=== PATIENT | male | born 1945 | race Caucasian/White ===

== ENCOUNTER → 2019-09-06 12:58 | Outpatient (BNVA) | payer MEDICARE, SELFPAY | PROVIDERS: Family Provider Internal Medicine; PCP Internal Medicine; Visit Provider Otolaryngology | DX: H69.83 Other specified disorders of Eustachian tube, bilateral (principal) | CPT/HCPCS: 99214 ==

== ENCOUNTER 2019-09-08 06:59 | Day surgery (SDC) | payer MEDICARE, SELFPAY ==
[2019-09-07 13:11] VITALS: BMI 26.9
--- NOTE | 2019-09-08 06:52 | PM.OP ---
Operative Report Date of procedure: September 08, 2019 Pre-op Diagnosis: Eustachian tube dysfunction Post-op diagnosis: same Procedure Done: Bilateral myringotomy and tube, binocular microscope Pathology: none sent Surgeon: Landon Simmons Condition: stable Disposition: PACU Brief History: Imani mohamud is a 74-year-old male with earaches and pressure and fullness for the past 30 years. He has tried numerous medical treatments and all have failed I discussed the goals risks and alternatives of treatment and informed consent was obtained to proceed with surgery. Procedure: The patient was taken to the operating room and under satisfactory general mask anesthesia the right ear was examined using the binocular microscope. Cerumen was removed from the external auditory canal. A radial incision was made in the anterior inferior quadrant of the tympanic membrane. An identical procedure and findings were performed on the opposite side. No complications occurred. The patient was taken to the recovery room where they were observed. During the observation period postoperative care instructions and counseling including detailed written and verbal instructions given to the caregiver. Once the patient met discharge criteria and once all parties verbalized understanding of all instructions the patient was discharged in satisfactory and stable condition.
[2019-09-08 07:17] VITALS: BP 110/74; RESP 18; TEMP 36.3; O2SAT 97
--- NOTE | 2019-09-08 07:56 | ANES.PREANE2 ---
Pre-Anesthetic Assessment Pre-Anesthetic Assessment: Height/Weight: Height 1.73 m Weight 80.286 kg Temp Resp BP Pulse Ox 97.4 F L 18 110/74 97 09/08/19 07:17 09/08/19 07:17 09/08/19 07:17 09/08/19 07:17 Preop Diagnosis: eustachian tube dysfunction Proposed Procedure: Operation Date: 08/05/19 07:20 Proposed Procedures p Tympanoplasty Required tube Insertion [id number], H69.80(Not Applicable) - Landon Simmons MD Operation Date: 09/08/19 08:50 Proposed Procedures p Myringotomy and Tubes Bilateral Myringotomy and Tubes(Not Applicable) - Landon Simmons MD Last intake: Intake Last Liquid Date 09/07/19 Last Liquid Time 19:00 Last Solid Date 09/07/19 Last Solid Time 19:00 Social: Social History: Tobacco (quit) and No alcohol Exam: Pre-Anes Outpt Exam: alert, oriented x 3, clear to auscultation bilaterally and regular rate & rhythm Airway: Submandibular: WNL Cervical ROM: WNL MP: 2 Dentition: Full and Other History/ROS: No significant history except as noted Pulmonary: Pulmonary: COPD and GARCIA CV/HEM: CV/HEM: Afib, CAD, CHF, HTN and KS Comments: PPM : : None reported Hepatic: Hepatic: None reported GI: GI: GERD (occ) Metabolic: Metabolic: Hyperlipidemia Musc/skel: Musc/skel: OA/DJD and Weakness (LE) Neuropsych: Neuropsych: None reported Anesthetic Plan: ASA status: 3 Anesthesia: MAC Risk of > 500 ml blood loss (7ml/kg in children): No PFSH Anesthesia PFSH: Medical History Arteriosclerosis of coronary artery Atrial fibrillation with RVR Chronic combined systolic and diastolic heart failure Chronic eustachian tube dysfunction CKD (chronic kidney disease) GERD (gastroesophageal reflux disease) Surgical History S/P angioplasty with stent S/P AV (atrioventricular) dolores ablation S/P laparoscopic hernia repair OF A VENTRAL HERNIA WITH ATRIUM MESH 03/26/2016 Family History Other Heart disease Hypertension Social History Smoking and tobacco status: former smoker Alcohol intake: never Lives independently: Yes Household members: spouse Housing: House Marital status: Current occupational status: retired Data Anesthesia Cardiac Studies: No Data to Display
--- NOTE | 2019-09-08 08:14 | W.PM.OPSUD ---
Surgery/Procedure H&P Update DATE OF PROCEDURE: September 08, 2019 DATE H&P PERFORMED: 09/06/19 H&P UPDATE INFORMATION: I have reviewed H&P completed within last 30 days and No changes to prior documentation PREOP DIAGNOSIS: eustachian tube dysfunction PLANNED PROCEDURE: Operation Date: 08/05/19 07:20 Proposed Procedures p Tympanoplasty Required tube Insertion [id number], H69.80(Not Applicable) - Landon Simmons MD Operation Date: 09/08/19 08:50 Proposed Procedures p Myringotomy and Tubes Bilateral Myringotomy and Tubes(Not Applicable) - Landon Simmons MD
[2019-09-08] MEDS: sodium chloride 0.9% 1,000 ML 30 ML IV (08:20)
[2019-09-08] MEDS: ofloxacin 0.3% otic 5 mL Btl 3 DROP EAR-BOTH (08:27)
--- NOTE | 2019-09-08 08:28 | PM.OP ---
Operative Report Date of procedure: September 08, 2019 Pre-op Diagnosis: eustachian tube dysfunction Post-op diagnosis: same Procedure Done: Lateral myringotomy and tube, binocular microscope Pathology: none sent Surgeon: Landon Simmons Anesthesia: General Complications: None Condition: stable Disposition: PACU Brief History: Kameron is a 8-year-old male with chronic eustachian tube dysfunction is failed medical management. I discussed the goals risks and alternatives and informed consent was obtained to proceed with surgery. Procedure: The patient was taken to the operating room and under satisfactory general mask anesthesia the right ear was examined using the binocular microscope. Cerumen was removed from the external auditory canal. A radial incision was made in the anterior inferior quadrant of the tympanic membrane. A #1 Paparella tube was placed. An identical procedure and findings were performed on the opposite side. No complications occurred. The patient was taken to the recovery room where they were observed. During the observation period postoperative care instructions and counseling including detailed written and verbal instructions given to the caregiver. Once the patient met discharge criteria and once all parties verbalized understanding of all instructions the patient was discharged in satisfactory and stable condition.
[2019-09-08 08:34] VITALS: BP 85/56; PULSE 92; RESP 16; TEMP 36.6; O2SAT 97
[2019-09-08 08:56] VITALS: BP 91/62; PULSE 90; RESP 18; O2SAT 98
== END 2019-09-08 09:28 | disposition home or self-care (01) ==
PROVIDERS: Family Provider Internal Medicine; PCP Internal Medicine; Visit Provider Otolaryngology
PROC: (CPT 69420; principal; 2019-09-08 08:50)
DX: H69.93 Unspecified Eustachian tube disorder, bilateral (principal); I48.91 Unspecified atrial fibrillation; I13.0 Hypertensive heart and chronic kidney disease with heart failure and stage 1 through stage 4 chronic kidney disease, or unspecified chronic kidney disease; N18.9 Chronic kidney disease, unspecified; I50.42 Chronic combined systolic (congestive) and diastolic (congestive) heart failure; Z82.49 Family history of ischemic heart disease and other diseases of the circulatory system; Z87.891 Personal history of nicotine dependence; J44.9 Chronic obstructive pulmonary disease, unspecified; K21.9 Gastro-esophageal reflux disease without esophagitis; E78.5 Hyperlipidemia, unspecified; M19.90 Unspecified osteoarthritis, unspecified site; I25.10 Atherosclerotic heart disease of native coronary artery without angina pectoris
CPT/HCPCS: 69436; 12345; J7030

== ENCOUNTER → 2019-09-29 12:29 | Outpatient (BNVA) | payer MEDICARE, SELFPAY | PROVIDERS: Family Provider Internal Medicine; PCP Internal Medicine; Visit Provider Otolaryngology | DX: H69.83 Other specified disorders of Eustachian tube, bilateral (principal) | CPT/HCPCS: 99213; 99214 ==

== ENCOUNTER 2020-01-02 13:38 | Outpatient (CLI) | payer MEDICARE, SELFPAY ==
--- NOTE | 2020-01-02 13:46 | CT_ITS ---
WS: [id number] CT HEAD WITHOUT AND WITH CONTRAST TECHNIQUE: Noncontrast and contrast-enhanced CT of the head. CLINICAL INFORMATION: HEARING LOSS COMPARISON: CTA head January 16, 2015 DLP: 1984.[address] scans at [facility] use at least one of these dose optimization techniques: automat ed exposure control; mA and/or kV adjustment per patient size (includes targeted exams where dose is matched to clinical indication); or iterative reconstruction. FINDINGS: Moderate small vessel changes. Moderate parenchymal volume loss. No evidence of intracranial hemorrha ge or mass effect. No extra-axial fluid collections. No abnormal intracranial enhancement. Intracrani al vascular calcification. Mastoid air cells are well aerated. Posterior nasopharynx is normal. No abnormal intracranial enhancement. Normal visualized dural venous sinuses. CT/CT head wo/w con [id number] IMPRESSION: 1. Moderate small vessel changes with mild to moderate parenchymal volume loss . This appears relatively stable since 2014 2. No abnormal intracranial enhancement. 3. Paranasal sinuses and mastoid air cells appear well aerated. 4. Intracranial vascular calcification.
[2020-01-02 15:10] LABS: Blood Urea Nitrogen 17 mg/dL (8-23)
[2020-01-02] MEDS: iodixanol 320 mg/mL 100mL Btl IV (15:18)
== END 2020-01-02 13:39 | disposition home or self-care (01) ==
LOC: RADWPI 13:39
PROVIDERS: Family Provider Internal Medicine; PCP Internal Medicine; Visit Provider Specialist
DX: H81.11 Benign paroxysmal vertigo, right ear (principal); H90.3 Sensorineural hearing loss, bilateral
CPT/HCPCS: 70470; 82565; 84520; Q9967

== ENCOUNTER 2020-01-31 08:14 | Outpatient (RCR) | payer MEDICARE, SELFPAY | END 2020-02-17 23:59 | disposition home or self-care (01) | LOC: SPT 08:14 | PROVIDERS: PCP Internal Medicine; Referring Provider Otolaryngology; Visit Provider Otolaryngology | DX: R42 Dizziness and giddiness (principal) | CPT/HCPCS: 95992; 97162 ==

== ENCOUNTER 2020-10-05 08:39 | Emergency (ER) | payer MEDICARE, SELFPAY ==
[2020-10-05 08:49] VITALS: BP 108/65; PULSE 89; RESP 18; TEMP 36.9; O2SAT 98; BMI 25.8
--- NOTE | 2020-10-05 08:56 | XR_ITS ---
WS: [id number] XR hip RT 2-3V wo/w pel* [id number] REASON FOR EXAM: pain FINDINGS: Mild to moderate narrowing of the right hip joint space with spurring of the acetabular margin. No focal bony abnormality. No soft tissue abnormality. XR/XR hip RT 2-3V wo/w pel* [id number] IMPRESSION: Osteoarthritis of the right hip as above.
--- NOTE | 2020-10-05 08:56 | XR_ITS ---
WS: [id number] XR lumbar spine 2-3V* [id number] REASON FOR EXAM: pain FINDINGS: 5 nonrib lumbar vertebral bodies. No focal lumbar vertebral body abnormality. Normal lumbar spine alignment. Mild narrowing of the intervertebral disc spaces L2-L3, L3-L4, and L4-L5 with anterior osteophytic sp urring. The L5-S1 interspace is relatively well-preserved. There are minor degenerative changes in the facet joints L3-S1. The sacroiliac joints appear unremarkable. Extensive plaque calcification in the abdominal aorta and the celiac artery and superior mesenteric a rtery. No aneurysmal dilatation identified. XR/XR lumbar spine 2-3V* [id number] IMPRESSION: Changes of degenerative spondylosis as above. Extensive vascular calcification as above.
--- NOTE | 2020-10-05 08:57 | ED_ITS ---
HPI - Extremity Problem General: Chief complaint: Extremity Problem,Nontraumatic Stated complaint: R HIP PAIN Time Seen by Provider: 10/05/20 08:46 History of Present Illness: HPI Narrative: Patient complains about right hip pain for greater than 2 weeks. Says pain radiates over to the left hip at times but this 1 right side is been hurting pretty bad last few days. Also complains about stiffness in the morning and pain with ambulation denies any acute injury MD Complaint: joint pain Onset (ago): week(s) Pain Consistency: constant Location: right Severity scale (1-10): 4 Quality: aching Radiation: none Relieving factors: immobilization Exacerbating factors: range of motion Associated symptoms: Reports no associated symptoms; Deny chest pain, fever(s) or rash Review of Systems Const: Denies: fever(s), chills or body aches Eyes: Denies: change in vision or blurry vision ENMT: Denies: throat pain or nasal congestion Card: Denies: chest pain or dyspnea on exertion Resp: Denies: dyspnea, productive cough or non-productive cough GI: Denies: abdominal pain, nausea or vomiting : Denies: difficulty urinating Musc: Reports: back pain and joint pain; Denies: extremity pain Skin/Breast: Denies: rash Neuro: Denies: headache(s) Psych: Denies: anxiety or depression Eric/Lymph: Denies: easy bruising PFS ED PFSH: Medical History (Updated 10/05/20 @ 10:05 by JUSTYN Mcdonald) Arteriosclerosis of coronary artery Atrial fibrillation with RVR Cardiomyopathy Carotid stenosis, bilateral Chronic combined systolic and diastolic heart failure Chronic eustachian tube dysfunction CKD (chronic kidney disease) Dyslipidemia GERD (gastroesophageal reflux disease) H/O: HTN (hypertension) Myocardial infarction of anterior wall Presence of cardiac pacemaker Surgical History S/P angioplasty with stent S/P AV (atrioventricular) dolores ablation S/P laparoscopic hernia repair OF A VENTRAL HERNIA WITH ATRIUM MESH 03/26/2016 Family History Other Heart disease Hypertension Social History Smoking and tobacco status: former smoker Alcohol intake: never Lives independently: Yes Household members: spouse Housing: House Marital status: Current occupational status: retired History of recent travel: No Physical Exam Const: COMMON NORMALS: no acute distress, average body habitus and patient oriented x3 HENMT: COMMON NORMALS: normocephalic HEAD & SCALP: normal to inspection and normocephalic FACE & SINUS: normal facial exam Eye: COMMON NORMALS: conjunctivae normal GENERAL EYE: appearance normal, both eyes and all related structures CONJUNCTIVA: Yes conjunctivae normal Neck/C-Spine: COMMON NORMALS: no JVD Chest: COMMONS NORMALS: normal inspection of the chest Resp: COMMON NORMALS: normal respiratory effort and clear to auscultation bilaterally AUSCULTATION: clear to auscultation bilaterally Cardio: COMMON NORMALS: no JVD, regular rate and regular rhythm RATE: regular rate RHYTHM: regular rhythm GI: COMMON NORMALS: Normal to inspection, nondistended, normoactive bowel sounds present Extremity: COMMON NORMALS: full ROM RIGHT LOWER EXTREMITY: Yes hip joint (Tender to posterior aspect hip sciatic area) Right hip: Yes palpation (Tender), Yes ROM (Full but with pain) and Yes neurovascular exam (Intact) Neuro: COMMON NORMALS: patient oriented x3 Course Vital Signs: Vital signs: Vital Signs Temperature 98.4 F 10/05/20 08:49 Pulse Rate 90 10/05/20 10:48 Respiratory Rate 20 H 10/05/20 10:48 Blood Pressure 91/54 10/05/20 10:48 Pulse Oximetry 95 10/05/20 10:48 MDM - Extremity (Nontraumatic) MDM Narrative: Medical decision making narrative: Chronic hip pain worse last few days. Did have a telehealth visit with Dr. Pandey yesterday who ordered a x-ray for next week. Patient has not tried any home medicines. Discharge Plan Discharge Patient Disposition: Home Clinical Impression: Osteoarthrosis, hip Condition: Stable Prescriptions: New Celebrex 100 mg capsule 100 mg PO BID Qty: 20 RF: 0 No Action Fluarix Quad [id number] (PF) 60 mcg (15 mcg x 4)/0.5 mL syringe 0.5 ml IM ONCE Qty: 0.5 RF: 0 simvastatin 40 mg tablet 40 mg PO ONCE RF: 0 aspirin [Adult Aspirin Regimen] 81 mg tablet,delayed release (DR/EC) 81 mg PO ONCE RF: 0 furosemide 20 mg tablet 20 mg PO QAM Qty: 60 RF: 8 tamsulosin [Flomax] 0.4 mg capsule 0.4 mg PO .QHS Qty: 90 RF: 3 Entresto 24-26 mg tablet 1 tab PO .IN EVENING MDD 1 Qty: 30 RF: 6 temazepam 15 mg capsule 15 mg PO .at bedtime Qty: 30 RF: 3 hydrocodone-acetaminophen [[place]] 5-325 mg tablet 1 tab PO Q6H PRN (Reason: pain) 30 Days Qty: 60 RF: 0 Discharge Orders: Discharge ED (Routine); Ordered 10/05/20 Ordered By: Romain Mane Referrals: Wolf Pandey MD [Primary Care Provider] - Discharge Diet: Usual diet Discharge Activity: Increase activity as tolerated Patient Instructions: Osteoarthritis (ED) Activity Restrictions/Additional Instructions: Follow-up with medical provider as directed. Take medications as prescribed. Return to the ER or your medical provider if condition worsens. Please read and understand discharge instructions. If any questions ask please. Coding Level of Care Code ED Electronics Assembler for Amy Fwd Exam Comprehensive
[2020-10-05] MEDS: ketorolac 60 mg/2 mL INJ IM (09:31)
[2020-10-05 10:48] VITALS: BP 91/54; PULSE 90; RESP 20; O2SAT 95
== END 2020-10-05 10:49 | disposition home or self-care (01) ==
PROVIDERS: Emergency Provider Nurse Practitioner Family; PCP Internal Medicine
DX: M16.11 Unilateral primary osteoarthritis, right hip (principal); I25.10 Atherosclerotic heart disease of native coronary artery without angina pectoris; I48.91 Unspecified atrial fibrillation; I11.0 Hypertensive heart disease with heart failure; I50.42 Chronic combined systolic (congestive) and diastolic (congestive) heart failure; E78.5 Hyperlipidemia, unspecified; I25.2 Old myocardial infarction; Z95.0 Presence of cardiac pacemaker; Z87.891 Personal history of nicotine dependence
CPT/HCPCS: 72100; 73502; 96372; 99283; J1885

== ENCOUNTER 2020-10-16 10:42 | Outpatient (CLI) | payer MEDICARE, SELFPAY ==
--- NOTE | 2020-10-16 11:00 | USCV_ITS ---
Kameron Holt Age: 75 Gender: M : 1945 Exam Date: 10/16/2020 10:59 Ordering Phys: Juno Meyer M.D ([email or web address]) Technologist: Dottie Alejandre Exam Location: [facility] [place] Indication: CARDIOMYOPATHY BP: 90 / 40 HR: Rhythm: Sinus Technical Quality: Adequate MEASUREMENTS (Male / Female) Normal Values 2D ECHO LV Diastolic Diameter PLAX 6.9 cm 4.2 - 5.9 / 3.9 - 5.3 cm LV Systolic Diameter PLAX 5.7 cm LV Chamber Size 3.7 cm IVS Diastolic Thickness 0.6 cm 0.6 - 1.0 / 0.6 - 0.9 cm IVS Systolic Thickness 0.6 cm LVPW Diastolic Thickness 1.2 cm 0.6 - 1.0 / 0.6 - 0.9 cm LVPW Systolic Thickness 1.7 cm RV Chamber Size 5.1 cm LVOT Diameter 2.0 cm LV Ejection Fraction 2D Teich 34.5 % LV Ejection Fraction MOD 2C 10.3 % LV Ejection Fraction 2C AL 8.9 % LA Diameter 5.1 cm LA Width 4.3 cm LA Height 5.3 cm RA Width 3.5 cm RA Height 5.1 cm Aorta at Sinotubular Diameter 3.4 cm M-MODE LV Diastolic Diameter MM 6.1 cm 4.2 - 5.9 / 3.9 - 5.3 cm LV Systolic Diameter MM 5.8 cm LV Ejection Fraction MM Teich 8.5 % IVS Diastolic Thickness MM 0.9 cm 0.6 - 1.0 / 0.6 - 0.9 cm IVS Systolic Thickness MM 0.9 cm LVPW Diastolic Thickness MM 1.7 cm 0.6 - 1.0 / 0.6 - 0.9 cm LVPW Systolic Thickness MM 1.8 cm RV Diastolic Diameter MM 2.8 cm Aortic Annulus Diameter 3.7 cm LA Ao Ratio MM 1.5 DOPPLER AV Peak Velocity 92.0 cm/s LVOT Peak Velocity 60.0 cm/s AV Area Cont Eq vti 1.9 cm squared AV Area Cont Eq pk 2.1 cm squared MV Area PHT 10.0 cm squared MV E' Velocity 67.0 cm/s Mitral E to MV E' Ratio 16.1 Mitral E to LV E' Lateral Ratio 12.3 Mitral E to LV E' Septal Ratio 23.8 TR Peak Velocity 279.1 cm/s TR Peak Gradient 31.1 mmHg TR Mean Velocity 187.7 cm/s TR Mean Gradient 16.8 mmHg TR Velocity Time Integral 74.2 cm TV Peak E Velocity 97.0 cm/s Right Atrial Pressure 3.0 mmHg Pulmonary Artery Systolic Pressu 34.1 mmHg PV Peak Velocity 66.0 cm/s RV Acceleration Time 0.3 s RV Ejection Time 0.4 s RV AcT/ET 0.8 FINDINGS Left Ventricle Severely dilated left ventricle. LV systolic function is severely reduced with EF of 10-15%. Severe global hypokinesis. Diastolic function is indeterminate Right Ventricle The right ventricle enlarged and has mild to moderate hypokinesis. Pacemaker lead is seen Right Atrium The right atrium is normal in size. Pacemaker lead is seen Left Atrium The left atrium is enlarged Mitral Valve Structurally normal mitral valve without significant stenosis or prolapse. There is mild mitral regurgitation. Aortic Valve Structurally normal aortic valve without significant sclerosis or stenosis. There is no aortic regurgitation. Tricuspid Valve Structurally normal tricuspid valve without significant stenosis. Moderate tricuspid regurgitation. RVSP is 50-55mmHg. This is consistent with moderate pulmonary hypertension Pulmonic Valve Structurally normal pulmonic valve without significant stenosis. There is mildpulmonic regurgitation. Pericardium Small sized pericardial effusion is seen Aorta Normal ascending aorta dimension. CONCLUSIONS Left ventricle is severely dilated. LV systolic function is severely reduced with EF of 10-15%. Severe global hypokinesis Mild to moderate hypokinsis of the right ventricle Mild mitral regurgitation Moderate tricuspid regurgitation. Moderate pulmonary hypertension Small pericardial effusion Pleural effusion is seen Compared to prior echocardiogram from 08/2016, patient now has a small pericardial effusion and a pleural effusion. Juno Meyer MD (Electronically Signed) Final Date: 19 October 2020 18:53 S
== END 2020-10-16 10:43 | disposition home or self-care (01) ==
LOC: RAD 10:46
PROVIDERS: PCP Internal Medicine; Visit Provider Internal Medicine
DX: I42.9 Cardiomyopathy, unspecified (principal); I07.1 Rheumatic tricuspid insufficiency; I27.20 Pulmonary hypertension, unspecified; I31.3 Pericardial effusion (noninflammatory); J90 Pleural effusion, not elsewhere classified
CPT/HCPCS: 93306

== ENCOUNTER 2020-11-15 11:30 | Outpatient (CLI) | payer MEDICARE, SELFPAY ==
--- NOTE | 2020-11-15 11:37 | XR_ITS ---
WS: [id number] Exam: XR chest 2V* [id number] Date/Time of Exam: 11/15/2020 11:50 AM Reason For Exam: R07.81 - Pleurodynia Comparison 08/30/2016. The heart is enlarged. There is increased pulmonary vascularity suggesting mild CHF. Bibasal pleural effusions are noted most marked on the left. Coronary artery stenting noted. A permanent cardiac pace r superimposes the left chest. Surgical clips in the left neck. No focal infiltrates. The mediastinum is not widened. XR/XR chest 2V* [id number] IMPRESSION: 1. Cardiac enlargement with signs of the low-grade CHF. Bibasal pleural effusio ns.
== END 2020-11-15 11:31 | disposition home or self-care (01) ==
PROVIDERS: PCP Internal Medicine; Visit Provider Internal Medicine
DX: R07.81 Pleurodynia (principal); R60.1 Generalized edema
CPT/HCPCS: 71046

== ENCOUNTER 2020-11-21 01:30 | Inpatient (IN) | payer MEDICARE, SELFPAY ==
[2020-11-21] VITALS (14 sets, daily range): BP systolic 73–101; BP diastolic 33–66; PULSE 70–93; RESP 12–28; TEMP 36.6–38.1; O2SAT 92–96; BMI 24.7
--- NOTE | 2020-11-21 01:36 | XRR_ITS ---
PROCEDURE INFORMATION: Exam: XR Chest Exam date and time: 11/21/2020 1:45 AM Age: 75 years old Clinical indication: Shortness of breath; Prior surgery; Surgery type: Pacer. Cardiac stents; Patient HX: SOB. Hypotensive. TECHNIQUE: Imaging protocol: XR of the chest. Views: 1 view. COMPARISON: CR XR chest 2V* [id number] 11/15/2020 11:55 AM FINDINGS: Tubes, catheters and devices: There is left-sided pacemaker with intact leads overlying the right atrium and right ventricle. Lungs: Unremarkable. No consolidation. Pleural spaces: Stable bilateral pleural effusions. Heart/Mediastinum: There is mild cardiomegaly. Bones/joints: Unremarkable. XR/XR chest 1V portable [id number] IMPRESSION: 1. Stable bilateral pleural effusions. 2. Mild cardiomegaly.
--- NOTE | 2020-11-21 01:38 | ED_ITS ---
HPI - Weakness General: Chief complaint: Weakness Stated complaint: WEAKNESS Time Seen by Provider: 11/21/20 01:31 Source: patient and EMS Mode of arrival: EMS Limitations: no limitations History of Present Illness: HPI Narrative: 75-year-old male has a history of congestive heart failure states he had increasing weakness over the last 2 days. He states today has been extremely weak and not able to ambulate on his own. He denies any cough or fever. He states that he did try to get up and ambulate and was unable to. EMS states that they had to help him to walk. Patient denies any chest pain. Denies any fever. Denies any vomiting or diarrhea. Associated symptoms: Denies chest pain, chills, dysuria, easy bruising, fever(s), headache(s), nausea or vomiting Review of Systems Const: Denies: fever(s), chills, body aches or change in appetite Eyes: Denies: blurry vision or eye discomfort ENMT: Denies: throat pain or dental pain Card: Denies: chest pain Resp: Denies: dyspnea GI: Denies: abdominal pain, nausea, vomiting or diarrhea : Denies: dysuria Musc: Denies: neck pain or back pain Skin/Breast: Denies: rash Neuro: Reports: weakness in extremities; Denies: headache(s) Psych: Denies: depression Eric/Lymph: Denies: easy bruising All/Imm: Denies: urticaria PFSH ED PFSH: Medical History Abdominal bloating Anxiety Arteriosclerosis of coronary artery Ascites Atrial fibrillation with RVR Cardiomyopathy Carotid stenosis, bilateral Chronic combined systolic and diastolic heart failure Chronic diarrhea Chronic eustachian tube dysfunction Chronic insomnia Chronic neck pain CKD (chronic kidney disease) Dyslipidemia Dysphagia Gastritis GERD (gastroesophageal reflux disease) H/O: HTN (hypertension) Heel spur Myocardial infarction of anterior wall Presence of cardiac pacemaker Thrombocytopenia Surgical History H/O colonoscopy with polypectomy History of placement of ear tubes S/P angioplasty with stent S/P AV (atrioventricular) dolores ablation S/P hernia repair S/P laparoscopic hernia repair OF A VENTRAL HERNIA WITH ATRIUM MESH 03/26/2016 S/P vasectomy Family History Other Heart disease Hypertension Social History Smoking and tobacco status: former smoker Alcohol intake: never Lives independently: Yes Household members: spouse Housing: House Marital status: Current occupational status: retired History of recent travel: No Physical Exam Const: COMMON NORMALS: no acute distress, patient oriented x3 and healthy appearing HENMT: COMMON NORMALS: normocephalic and atraumatic HEAD & SCALP: normocephalic and atraumatic Eye: COMMON NORMALS: Equal, round and reactive pupils present and EOMs intact bilaterally PUPIL: Yes Equal, round and reactive pupils present Neck/C-Spine: COMMON NORMALS: full ROM and supple Chest: COMMONS NORMALS: normal inspection of the chest and normal palpation of entire chest wall Resp: COMMON NORMALS: normal respiratory effort, No retractions, No use of accessory muscles and clear to auscultation bilaterally AUSCULTATION: clear to auscultation bilaterally Cardio: COMMON NORMALS: regular rate, regular rhythm and No murmurs present (Cardio) RATE: regular rate RHYTHM: regular rhythm GI: COMMON NORMALS: Normal to inspection, nondistended, normoactive bowel sounds present, Soft to palpation, non-tender and no masses PALPATION: Yes Soft to palpation Extremity: COMMON NORMALS: full ROM NARRATIVE EXTREMITY EXAM: 2+ edema Neuro: COMMON NORMALS: patient oriented x3, moves all extremities and no focal motor deficits Psych: COMMON NORMALS: mental status grossly normal, Normal thought process present and cooperative THOUGHT PROCESS: Normal thought process present Skin: COMMON NORMALS: no rashes or lesions noted and no wounds GENERAL SKIN EXAM: no rashes or lesions noted Course Vital Signs: Vital signs: Vital Signs Temperature 98 F 11/21/20 05:04 Pulse Rate 70 11/21/20 05:04 Respiratory Rate 22 H 11/21/20 05:04 Blood Pressure 91/57 11/21/20 04:42 Pulse Oximetry 92 11/21/20 05:04 MDM - Weakness MDM Narrative: Medical decision making narrative: Patient presents with generalized weakness having difficulty walking due to his weakness. He is also having CHF exacerbation with a extremity swelling. Patient given IV Lasix here. He has had abdominal distention I did a CT scan that did show lymphadenopathy concerning for neoplasm. I spoke to the hospitalist and will admit for further work-up. Lab Data: Labs: Lab Results 11/21/20 11/21/20 11/21/20 Range/Units 01:41 01:41 01:41 WBC 10.6 H (4.0-10.0) 10^3/ uL RBC 4.79 (4.1-5.3) 10^6/u L Hgb 14.2 (11.7-16.6) g/dL Hct 44.5 (42.0-52.0) % MCV 92.9 (80-94) fL MCH 29.6 (28.0-34.0) pg MCHC 31.9 (30.0-36.0) g/dL RDW 16.7 H (12.1-15.1) % Plt Count 207 (130-400) 10^3/c mm MPV 10.6 H (7.4-10.4) fL Neut % (Auto) 64.8 % Lymph % (Auto) 18.5 % Jessamine % (Auto) 11.0 % Eos % (Auto) 0.9 % Baso % (Auto) 0.8 % Neut # (Auto) 6.86 (1.8-7.7) 10^3/u L Lymph # (Auto) 2.0 (0.8-4.8) 10^3/u L Jessamine # (Auto) 1.2 H (0.2-0.9) 10^3/u L Eos # (Auto) 0.1 (0.0-0.8) 10^3/u L Baso # (Auto) 0.1 (0.0-0.1) 10^3/u L Nucleated RBC % (a uto) 0 % Nucleated RBCs # 0.0 /100WBC PT 16.10 H (12.1-14.9) SECO NDS INR 1.25 H (0.8-1.2) Sodium 132 L (136-145) mmol/L Potassium 4.7 (3.5-5.1) mmol/L Chloride 94 L (98-107) mmol/L Carbon Dioxide 27 (22-29) mmol/L Anion Gap 15.7 (5-19) BUN 30 H (8-23) mg/dL Creatinine 1.1 (0.7-1.2) mg/dL GFR Calculation Not Reportable Glucose 102 (65-115) mg/dL Calculated Osmolal ity 280 L (285-295) mOsm/k g Calcium 8.4 L (8.5-10.5) mg/dL Total Bilirubin 1.5 H (0.15-1.2) mg/dL AST 103 H (0-40) U/L ALT 57 H (0-41) U/L Alkaline Phosphata se 763 H (40-130) IU/L Troponin T Baselin e (0-15) ng/L NT-Pro-B Natriuret Pep 74009 H (0-125) pg/mL Total Protein 5.6 L (6.6-8.7) g/dL Albumin 3.1 L (3.5-5.2) g/dL Globulin 2.5 (1.3-4.6) g/dL Urine Color (Yellow) Urine Appearance (CLEAR) Urine pH (5-7) Ur Specific Gravit y (1.005-1.030) Urine Protein (Negative) Urine Glucose (UA) (Normal) Urine Ketones (Negative) Urine Blood (Negative) Urine Nitrate (Negative) Urine Bilirubin (Negative) Urine Urobilinogen (Negative) mg/dL Ur Leukocyte Beatrice ase (Negative) Urine RBC (0-2) /hpf Urine WBC (0-5) /hpf Ur Squamous Epith Cells (0-5) /hpf Amorphous Sediment Urine Bacteria (NONE) /hpf Hyaline Casts /lpf 11/21/20 11/21/20 Range/Units 01:41 01:58 WBC (4.0-10.0) 10^3/ uL RBC (4.1-5.3) 10^6/u L Hgb (11.7-16.6) g/dL Hct (42.0-52.0) % MCV (80-94) fL MCH (28.0-34.0) pg MCHC (30.0-36.0) g/dL RDW (12.1-15.1) % Plt Count (130-400) 10^3/c mm MPV (7.4-10.4) fL Neut % (Auto) % Lymph % (Auto) % Jessamine % (Auto) % Eos % (Auto) % Baso % (Auto) % Neut # (Auto) (1.8-7.7) 10^3/u L Lymph # (Auto) (0.8-4.8) 10^3/u L Jessamine # (Auto) (0.2-0.9) 10^3/u L Eos # (Auto) (0.0-0.8) 10^3/u L Baso # (Auto) (0.0-0.1) 10^3/u L Nucleated RBC % (a uto) % Nucleated RBCs # /100WBC PT (12.1-14.9) SECO NDS INR (0.8-1.2) Sodium (136-145) mmol/L Potassium (3.5-5.1) mmol/L Chloride (98-107) mmol/L Carbon Dioxide (22-29) mmol/L Anion Gap (5-19) BUN (8-23) mg/dL Creatinine (0.7-1.2) mg/dL GFR Calculation Glucose (65-115) mg/dL Calculated Osmolal ity (285-295) mOsm/k g Calcium (8.5-10.5) mg/dL Total Bilirubin (0.15-1.2) mg/dL AST (0-40) U/L ALT (0-41) U/L Alkaline Phosphata se (40-130) IU/L Troponin T Baselin e 65 H (0-15) ng/L NT-Pro-B Natriuret Pep (0-125) pg/mL Total Protein (6.6-8.7) g/dL Albumin (3.5-5.2) g/dL Globulin (1.3-4.6) g/dL Urine Color Dark yellow (Yellow) Urine Appearance Clear (CLEAR) Urine pH 5 (5-7) Ur Specific Gravit y 1.020 (1.005-1.030) Urine Protein 1+ H (Negative) Urine Glucose (UA) Norm (Normal) Urine Ketones Negative (Negative) Urine Blood Neg (Negative) Urine Nitrate Negative (Negative) Urine Bilirubin 1+ H (Negative) Urine Urobilinogen 1 H (Negative) mg/dL Ur Leukocyte Beatrice ase Negative (Negative) Urine RBC 0-4 H (0-2) /hpf Urine WBC None (0-5) /hpf Ur Squamous Epith Cells 0-4 H (0-5) /hpf Amorphous Sediment Not Reportable Urine Bacteria Trace (NONE) /hpf Hyaline Casts 5-10 H /lpf Imaging Data^: CT Abd/Pel: Attestation: I personally reviewed and interpreted this imaging study as follows: Radiologist's impression: [employer] [place] [address] CT Scan Report Signed Patient: Kameron Holt Unit #: [id number] : 1945 Age/Sex: 75 / M ADM Date: 11/21/20 Loc: ER Room/Bed: Attending Dr: Ordering Provider/Ordering MD: Ismael Calderón MD Date of Service: 11/21/20 Procedure(s): CT abdomen pelvis w con* [id number] Accession Number(s): [id number] Report Number: [id number] PROCEDURE INFORMATION: Exam: CT Abdomen And Pelvis With Contrast Exam date and time: 11/21/2020 2:33 AM Age: 75 years old Clinical indication: Abdominal pain; Prior surgery; Surgery type: Pacer. Cardiac stents. Hernia repair. ; Patient HX: Generalized abd pain. Hypotensive. TECHNIQUE: Imaging protocol: Computed tomography of the abdomen and pelvis with contrast. Radiation optimization: All CT scans at this facility use at least one of these dose optimization techniques: automated exposure control; mA and/or kV adjustment per patient size (includes targeted exams where dose is matched to clinical indication); or iterative reconstruction. Contrast material: OMNI 300; Contrast volume: 95 ml; Contrast route: INTRAVENOUS (IV); COMPARISON: CT Abdomen/Pelvis Renal [id number] 10/07/2017 4:11 PM RADIATION DOSE METRICS: Total DLP (mGy-cm): 1423.3 FINDINGS: Lungs: The lung bases are clear. No effusion Pleural spaces: Small bilateral pleural effusions. Heart: There is moderate cardiomegaly. Liver: There is cirrhotic morphology of the liver. Gallbladder and bile ducts: No wall thickening, pericholecystic fluid or stones. Pancreas: Normal. No ductal dilation. Spleen: Normal. No splenomegaly. Adrenal glands: Normal. No mass. Kidneys and ureters: Normal. No hydronephrosis. Stomach and bowel: Diverticulosis without diverticulitis. Appendix: No evidence of appendicitis. Intraperitoneal space: Tiny amount of ascites. Vasculature: Unremarkable. No abdominal aortic aneurysm. Lymph nodes: 2.1 x 2 cm left pelvic sidewall lymph node. 1.6 x 1.6 cm left external iliac lymph node. 3.1 by 2.6 cm lymph node near the confluence of the common iliac veins. Urinary bladder: Unremarkable as visualized. Reproductive: Prostate is moderately enlarged and lobulated. Bones/joints: Unremarkable. No acute fracture. Soft tissues: There is an umbilical hernia containing an nonobstructed loop of bowel. CT/CT abdomen pelvis w con* [id number] IMPRESSION: 1. New pelvic adenopathy which may be neoplastic or reactive. 2. There is moderate cardiomegaly. 3. Small bilateral pleural effusions. 4. There is an umbilical hernia containing an nonobstructed loop of bowel. 5. Diverticulosis without diverticulitis. 6. Prostate is moderately enlarged and lobulated. 7. Tiny amount of ascites. 8. Cirrhosis. 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
[2020-11-21 01:47] LABS: Basophils # 0.1 10^3/uL (0.0-0.1); Basophils % 0.8 %; Eosinophils # 0.1 10^3/uL (0.0-0.8); Eosinophils % 0.9 %; Hematocrit 44.5 % (42.0-52.0); Hemoglobin 14.2 g/dL (11.7-16.6); Lymphocytes % 18.5 %; Mean Corpuscular HGB Conc 31.9 g/dL (30.0-36.0); Mean Corpuscular Hemoglobin 29.6 pg (28.0-34.0); Mean Corpuscular Volume 92.9 fL (80-94); Mean Platelet Volume 10.6 fL (7.4-10.4); Monocytes # 1.2 10^3/uL (0.2-0.9); Neutrophils # 6.86 10^3/uL (1.8-7.7); Neutrophils % 64.8 %; Nucleated Red Blood Cells % 0 %; Platelet Count 207 10^3/cmm (130-400); Red Blood Count 4.79 10^6/uL (4.1-5.3); Red Cell Distribution Width 16.7 % (12.1-15.1); White Blood Count 10.6 10^3/uL (4.0-10.0)
[2020-11-21 01:57] LABS: INR 1.25 (0.8-1.2)
[2020-11-21 02:06] LABS: Troponin(5th) Baseline 65 ng/L (0-15)
[2020-11-21 02:13] LABS: Alanine Aminotransferase 57 U/L (0-41); Albumin Level 3.1 g/dL (3.5-5.2); Alkaline Phosphatase 763 IU/L (40-130); Blood Urea Nitrogen 30 mg/dL (8-23); Calcium 8.4 mg/dL (8.5-10.5); Carbon Dioxide 27 mmol/L (22-29); Chloride 94 mmol/L (98-107); Globulin 2.5 g/dL (1.3-4.6); Glucose 102 mg/dL (65-115); NT Pro B Type Natriuretic Pept 21169 pg/mL (0-125); Osmolality Calculated 280 mOsm/kg (285-295); Sodium 132 mmol/L (136-145); Total Bilirubin 1.5 mg/dL (0.15-1.2); Total Protein 5.6 g/dL (6.6-8.7)
[2020-11-21 02:16] LABS: Add Urine Microscopic? YES; Bilirubin Urine 1+ (Negative); Blood Urine Neg (Negative); Glucose Urine UA Norm (Normal); Ketones Urine Negative (Negative); Leukocyte Esterase Urine Negative (Negative); Nitrate Urine Negative (Negative); Protein Urine 1+ (Negative); Urine Appearance Clear (CLEAR); Urine Color Dark Yellow (Yellow); Urobilinogen Urine 1 mg/dL (Negative); pH Urine 5 (5-7)
[2020-11-21 02:17] LABS: Add Urine Culture? No; Bacteria Urine TRACE /hpf; RBC Urine 0-4 /hpf (0-2); Squamous Epithelial Cell Urine 0-4 /hpf (0-5)
[2020-11-21 02:22] LABS: Anion Gap 15.7 (5-19); Potassium 4.7 mmol/L (3.5-5.1)
[2020-11-21 02:23] LABS: Aspartate Amino Transferase 103 U/L (0-40)
--- NOTE | 2020-11-21 02:30 | CTR_ITS ---
PROCEDURE INFORMATION: Exam: CT Abdomen And Pelvis With Contrast Exam date and time: 11/21/2020 2:33 AM Age: 75 years old Clinical indication: Abdominal pain; Prior surgery; Surgery type: Pacer. Cardiac stents. Hernia repair. ; Patient HX: Generalized abd pain. Hypotensive. TECHNIQUE: Imaging protocol: Computed tomography of the abdomen and pelvis with contrast. Radiation optimization: All CT scans at this facility use at least one of these dose optimization techniques: automated exposure control; mA and/or kV adjustment per patient size (includes targeted exams where dose is matched to clinical indication); or iterative reconstruction. Contrast material: OMNI 300; Contrast volume: 95 ml; Contrast route: INTRAVENOUS (IV); COMPARISON: CT Abdomen/Pelvis Renal [id number] 10/07/2017 4:11 PM RADIATION DOSE METRICS: Total DLP (mGy-cm): 1423.3 FINDINGS: Lungs: The lung bases are clear. No effusion Pleural spaces: Small bilateral pleural effusions. Heart: There is moderate cardiomegaly. Liver: There is cirrhotic morphology of the liver. Gallbladder and bile ducts: No wall thickening, pericholecystic fluid or stones. Pancreas: Normal. No ductal dilation. Spleen: Normal. No splenomegaly. Adrenal glands: Normal. No mass. Kidneys and ureters: Normal. No hydronephrosis. Stomach and bowel: Diverticulosis without diverticulitis. Appendix: No evidence of appendicitis. Intraperitoneal space: Tiny amount of ascites. Vasculature: Unremarkable. No abdominal aortic aneurysm. Lymph nodes: 2.1 x 2 cm left pelvic sidewall lymph node. 1.6 x 1.6 cm left external iliac lymph node. 3.1 by 2.6 cm lymph node near the confluence of the common iliac veins. Urinary bladder: Unremarkable as visualized. Reproductive: Prostate is moderately enlarged and lobulated. Bones/joints: Unremarkable. No acute fracture. Soft tissues: There is an umbilical hernia containing an nonobstructed loop of bowel. CT/CT abdomen pelvis w con* [id number] IMPRESSION: 1. New pelvic adenopathy which may be neoplastic or reactive. 2. There is moderate cardiomegaly. 3. Small bilateral pleural effusions. 4. There is an umbilical hernia containing an nonobstructed loop of bowel. 5. Diverticulosis without diverticulitis. 6. Prostate is moderately enlarged and lobulated. 7. Tiny amount of ascites. 8. Cirrhosis. Radiation Dose CTDIVOL = (mGy): DLP = 1423.3 (mGy-cm)
[2020-11-21] MEDS: morphine 4 mg/mL SDV 1 mL IVP (02:39)
[2020-11-21] MEDS: iohexol 300 mg/mL 100 mL Btl IV (02:54)
--- NOTE | 2020-11-21 03:37 | ECG_ITS ---
[facility] ED Test Date: 2020-11-21 Pat Name: Kameron Holt Department: Room: 275 Gender: Male [employer]: : 1945 Requested By: Ismael Calderón Order Number: [id number] Raghav MD: Qi Velásquez M.D. Measurements Intervals [place] Rate: 91 P: CO: QRS: 166 QRSD: 154 T: -14 QT: 391 QTc: 482 Interpretive Statements ELECTRONIC VENTRICULAR PACEMAKER ABNORMAL RHYTHM ECG Compared to ECG 02/14/2019 16:13:00 No significant changes Electronically Signed On 11-25-2020 12:27:02 CDT by Qi Velásquez M.D. [id number]
--- NOTE | 2020-11-21 03:40 | P.HP_ITS ---
Providers/Chief Complaint Primary Care Provider: Wolf Pandey MD Chief Complaint: WEAKNESS History of Present Illness Kameron Holt is a 75 year old male who has history of nonischemic reduced ejection fraction heart failure 15%(due for AICD placement on Thursday next week) status post pacemaker, chronic kidney disease presented today with chief complaint of generalized weakness. Patient is stating that for last 2 to 3 weeks he has been experiencing weakness, he is not able to walk, his balance is off, he has been having urinary incontinence as well. This is associated with increased back pain as well. No chest pain or worsening of shortness of breath, he does take Lasix for his severe lower extremity edema. He does not drink he is a former smoker. Has history of BPH. Patient is denying night sweats, fever however endorsing weight loss. Diagnostics in the ER revealed mild leukocytosis, abnormal transaminases, extremely high alkaline phosphatase, enlarged prostate, congestive hepatopathy, high BNP, chest x-ray consistent with pleural effusion, has history of pericardial effusion as well, in the ER he received 40 mg IV Lasix Digital rectal exam revealed enlarged nodular prostate, firm consistency Concern for spinal cord compression, we will request CT scan of his spine Review of Systems Const: Reports: body aches, change in appetite, change in weight, fatigue and malaise; Denies: fever(s) Eyes: Denies: change in vision ENMT: Denies: throat pain Card: Reports: swelling of feet/ankles, dyspnea on exertion and orthopnea; Denies: chest pain Resp: Reports: dyspnea GI: Denies: abdominal pain : Denies: flank pain Musc: Denies: neck pain Skin/Breast: Denies: rash Neuro: Denies: headache(s) Psych: Denies: anxiety Endo: Denies: polyuria Eric/Lymph: Denies: easy bruising All/Imm: Denies: urticaria Medications/Allergies Home Medications Medication Instructions Recorded Confirmed Last Taken Type aspirin 81 mg tablet,delayed 81 mg PO ONCE 07/19/19 11/15/20 09/04/19 History release simvastatin 40 mg tablet 40 mg PO ONCE 07/19/19 11/15/20 09/01/19 History tamsulosin 0.4 mg capsule 0.4 mg PO .QHS #90 cap 03/21/20 11/15/20 Unknown Rx temazepam 15 mg capsule 15 mg PO .at bedtime #30 cap 07/23/20 11/15/20 Unknown Rx hydrocodone 5 mg-acetaminophen 325 1 tab PO Q6H PRN 30 Days #90 tab 10/09/20 11/15/20 Unknown Rx mg tablet acetaminophen 500 mg tablet 1,000 mg PO DAILY PRN tab 11/08/20 11/15/20 Unknown History furosemide 40 mg tablet 40 mg PO BID #60 tab 11/08/20 11/15/20 Unknown Rx sacubitril 24 mg-valsartan 26 mg 1 tab PO .IN EVENING #30 tab MDD 1 11/12/20 11/15/20 Unknown Rx tablet prednisone 20 mg tablet 20 mg PO DAILY #7 tab 11/15/20 11/15/20 Unknown Rx Allergies Allergy/AdvReac Type Severity Reaction Status Date / Time amlodipine [From Norvasc] Allergy Unknown Verified 11/15/20 10:50 apixaban Allergy Unknown Verified 11/15/20 10:50 benazepril Allergy Unknown Verified 11/15/20 10:50 candesartan [From Atacand] Allergy unknown Verified 11/15/20 10:50 carvedilol [From Coreg] Allergy Unknown Verified 11/15/20 10:50 hydrochlorothiazide Allergy Unknown Verified 11/15/20 10:50 irbesartan [From Avapro] Allergy Unknown Verified 11/15/20 10:50 lisinopril Allergy unknown Verified 11/15/20 10:50 losartan [From Cozaar] Allergy Unknown Verified 11/15/20 10:50 lovastatin Allergy Unknown Verified 11/15/20 10:50 metoprolol [From Toprol XL] Allergy Unknown Verified 11/15/20 10:50 nebivolol [From Bystolic] Allergy Unknown Verified 11/15/20 10:50 olmesartan [From Benicar] Allergy Unknown Verified 11/15/20 10:50 rivaroxaban Allergy Unknown Verified 11/15/20 10:50 rosuvastatin [From Crestor] Allergy Unknown Verified 11/15/20 10:50 spironolactone Allergy Unknown Verified 11/15/20 10:50 valsartan [From Diovan] Allergy Unknown Verified 11/15/20 10:50 warfarin Allergy unknown Verified 11/15/20 10:50 PFSH Acute PFSH: Medical History Abdominal bloating Anxiety Arteriosclerosis of coronary artery Ascites Atrial fibrillation with RVR Cardiomyopathy Carotid stenosis, bilateral Chronic combined systolic and diastolic heart failure Chronic diarrhea Chronic eustachian tube dysfunction Chronic insomnia Chronic neck pain CKD (chronic kidney disease) Dyslipidemia Dysphagia Gastritis GERD (gastroesophageal reflux disease) H/O: HTN (hypertension) Heel spur Myocardial infarction of anterior wall Presence of cardiac pacemaker Thrombocytopenia Surgical History H/O colonoscopy with polypectomy History of placement of ear tubes S/P angioplasty with stent S/P AV (atrioventricular) dolores ablation S/P hernia repair S/P laparoscopic hernia repair OF A VENTRAL HERNIA WITH ATRIUM MESH 03/26/2016 S/P vasectomy Family History Other Heart disease Hypertension Social History Smoking and tobacco status: former smoker Alcohol intake: never Lives independently: Yes Household members: spouse Housing: House Marital status: Current occupational status: retired History of recent travel: No Vitals/I&O/Wt Last Vital Signs Temp 98.2 F 11/21/20 01:34 Pulse 90 11/21/20 03:11 Resp 17 11/21/20 03:11 BP 101/66 11/21/20 03:11 Pulse Ox 95 11/21/20 02:39 Weight last 48 hrs Weight 73.936 kg Physical Exam Narrative: EXAM NARRATIVE: Pleasant and cooperative elderly male who looks more than stated age, clinically fluid overloaded at the bedside Saturating well on room air No active chest pain shortness of breath abdominal pain Lower extremity edema extending up to his thighs Abdomen soft nontender, distended, umbilical hernia No right upper quadrant pain Systolic murmur appreciated, variable S1-S2 , he has paced rhythm evident on telemetry Crackles bibasilar acute respite distress saturating well on room air EOMI, PERRLA no neurological deficits Awake alert oriented x3 GCS 15 however lethargic and tired No joint swelling Digital rectal exam revealed nontender firm nodular prostate Data : 11/21/20 01:41 11/21/20 01:41 A&P Assessment and plan (1) Acute exacerbation of CHF (congestive heart failure): Status: Acute (2) Weakness: Status: Acute (3) Urinary incontinence: Status: Acute (4) Back pain: Status: Acute (5) Ataxia: Status: Acute (6) High serum alkaline phosphatase level: Status: Acute (7) Hepatopathy: Status: Acute Additional A&P Information Acute systolic CHF exacerbation History of non ischemic cardiomyopathy severely reduced EF 15% Patient is stating that he is due for AICD placement on Thursday next week I will transition him from Lasix to Bumex no current chest pain or shortness of breath no coronary ischemia evident I do believe this is gradual worsening of his underlying congestive heart failure no hyponatremia, elevated BNP with congestive hepatopathy, Has signs of liver cirrhosis, patient does not drink alcohol Ataxia urine incontinence and back pain Considering high alkaline phosphatase, firm nodular prostate my concern is high for prostate malignancy, CT abdomen pelvis also consistent with pelvic adenopathy We will start him on Decadron considering spinal cord compression signs symptoms, will get CT lumbar and thoracic region, please consider MRI if CT scan is unremarkable considering his remarkable symptoms BladderScan as needed We will request PSA level, will need prostate biopsy to rule malignancy, I do believe this will delay or contraindicate AICD placement Pleural and pericardial effusion Recently he was started on prednisone by Dr. Pandey for pleuritic chest pain, discontinue prednisone as I am going to use Decadron No active signs of cardiac tamponade Goals of care discussed with the patient and his : He does not want chest compressions or intubation including defibrillation, he is DNR/DNI Cardiac diet DVT prophylaxis Lovenox Attestations Medical Necessity Statement*: Anticipating stay in the hospital cross more than 2 midnights for CHF exacerbation, concern for prostate malignancy which needs further evaluation Time Spent in Patient Care: (>than 50% of time spent in counselling and/or direct pt care on unit) . 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
[2020-11-21] MEDS: FUROsemide 10 mg/mL SDV 4mL 40 MG IVP (03:47)
--- NOTE | 2020-11-21 04:15 | CTR_ITS ---
PROCEDURE INFORMATION: Exam: CT Lumbar Spine Without Contrast Exam date and time: 11/21/2020 4:20 AM Age: 75 years old Clinical indication: Low back pain; Additional info: Urinary oncontinence ataxia, back pain TECHNIQUE: Imaging protocol: Computed tomography images of the lumbar spine without contrast. Radiation optimization: All CT scans at this facility use at least one of these dose optimization techniques: automated exposure control; mA and/or kV adjustment per patient size (includes targeted exams where dose is matched to clinical indication); or iterative reconstruction. COMPARISON: CR XR lumbar spine 2-3V* [id number] 10/05/2020 9:20 AM RADIATION DOSE METRICS: Total DLP (mGy-cm): 2323.38 FINDINGS: Vertebrae: Multiple lytic and blastic lesions involve the L5 vertebral body. Multiple lytic lesions present in the trabecular bone throughout the lumbar spine. No acute fracture. L1-L2: Mild disc space narrowing. Broad-based disc protrusion mildly narrows the central canal. L2-L3: Mild disc space narrowing. Broad-based disc protrusion results in moderate canal stenosis when combined with facet hypertrophy. L3-L4: Mild disc space narrowing. Broad-based disc protrusion plus facet and ligamentum flavum hypertrophy results in moderate canal stenosis with mild left neural foraminal narrowing. L4-L5: Mild disc space narrowing. Broad-based disc protrusion results in moderate to severe canal stenosis with mild bilateral foraminal narrowing. L5-S1: Mild-moderate right neural foraminal stenosis. Mild left neural foraminal narrowing. Minimal canal narrowing. Sacrum/coccyx: Patchy lucent lesions present in the sacrum and visualized portions of the pelvis. Soft tissues: Unremarkable. CT/CT lumbar spine wo con* [id number] IMPRESSION: 1. Diffuse metastatic bone disease. 2. Multilevel degenerative disc and joint disease which is most pronounced at L4-L5. Radiation Dose CTDIVOL = (mGy): DLP = 2323.38 (mGy-cm)
--- NOTE | 2020-11-21 04:15 | CTR_ITS ---
PROCEDURE INFORMATION: Exam: CT Thoracic Spine Without Contrast Exam date and time: 11/21/2020 4:20 AM Age: 75 years old Clinical indication: Pain in thoracic spine; Additional info: Urinary oncontinence ataxia, back pain TECHNIQUE: Imaging protocol: Computed tomography images of the thoracic spine without contrast. Radiation optimization: All CT scans at this facility use at least one of these dose optimization techniques: automated exposure control; mA and/or kV adjustment per patient size (includes targeted exams where dose is matched to clinical indication); or iterative reconstruction. COMPARISON: No relevant prior studies available. RADIATION DOSE METRICS: Total DLP (mGy-cm): 1543.78 FINDINGS: Vertebrae: There is normal vertebral body alignment. Lytic and sclerotic lesions involving the T9 and T11 vertebral bodies. Lytic lesions involving T7 and T6. Lytic lesion involves T1. There is mild anterior wedging of the T11 vertebral body. Mixed lytic and sclerotic lesions involving T12. Discs/Spinal canal/Neural foramina: Disc spaces are symmetric and maintained. No central canal or neural foraminal stenosis. Soft tissues: Unremarkable. Pleural spaces: Small bilateral pleural effusions. CT/CT thoracic spin wo con* [id number] IMPRESSION: 1. Small bilateral pleural effusions. 2. Mild pathologic compression fracture at T11. 3. Diffuse lytic and sclerotic lesions of multiple vertebral bodies consistent with metastatic disease. No bony foraminal or canal stenosis. Multiple vertebral bodies are involved enough to be worrisome for development of pathologic fracture. Radiation Dose CTDIVOL = (mGy): DLP = 1543.78 (mGy-cm)
[2020-11-21 04:20] LABS: Troponin 5 2HR 73.54 ng/L (0-15); Troponin 5 2HR Delta 8.54 ABS# (0-10)
[2020-11-21] MEDS: tamsulosin 0.4 mg Capsule PO ×2 (05:32→21:10)
[2020-11-21] MEDS: temazepam 15 mg Capsule PO ×2 (05:32→21:10)
[2020-11-21] MEDS: enoxaparin 40 mg/0.4 mL Syringe SUBCUT (05:32)
--- NOTE | 2020-11-21 07:37 | ECG_ITS ---
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 Measurements Intervals [place] Rate: 92 P: SD: QRS: 167 QRSD: 152 T: -18 QT: 390 QTc: 485 Interpretive Statements ELECTRONIC VENTRICULAR PACEMAKER ABNORMAL RHYTHM ECG Compared to ECG 11/21/2020 05:28:01 No significant changes Electronically Signed On 11-25-2020 12:26:48 CDT by Qi Velásquez M.D. [id number]
[2020-11-21 08:09] LABS: Troponin 5 6HR 70.69 ng/L (0-15); Troponin 5 6HR Delta 5.69 ng/L (0-12)
--- NOTE | 2020-11-21 10:02 | PC.PHAR ---
pt states he takes care of his own medications-on a previous entered med list has aspirin 81mg pt states he is not taking that medication-pt states he takes 1/2 tab qpm of entresto rx filled for 1 tab qpm-pt brought in bottle of simvastatin 40mg hs dated 03/22/2019 pt states he takes this medication sometimes
[2020-11-21] MEDS: HYDROcodone-acetaminophen 5-325 mg Tablet 1 TAB PO (10:21)
[2020-11-21] MEDS: dexamethasone 4 mg Tablet PO ×4 (10:22→21:10)
[2020-11-21] MEDS: bumetanide 0.25 mg/mL SDV 4 mL 1 MG IV (10:24)
[2020-11-21] MEDS: piperacillin-tazobactam 3.375 GM in sodium chloride 0.9% (plus) 50 ML IV ×2 (10:44→17:24)
--- NOTE | 2020-11-21 11:47 | PM.PN ---
Subjective Subjective: Interval history: Patient was examined multiple times this morning, including with his and son at bedside I discussed with family that he has nonischemic cardiomyopathy, currently having a mild CHF exacerbation, receiving diuretic therapy, he does have fluid overload and bilateral lower extremities He is due for an AICD placement by Dr. Cooper next week However what is significant Alexander pressing issue right now is: -He was found to have enlarged prostate on imaging, prostate moderately enlarged and lobulated, with pelvic lymphadenopathy 2.1 x 2 cm left pelvic sidewall lymph node. 1.6 x 1.6 cm left external iliac lymph node. 3.1 by 2.6 cm lymph node near the confluence of the common iliac veins. -Patient has diffuse metastatic disease throughout the sacrum, pelvis, lumbar and thoracic spine, with an acute T11 pathologic fracture, mild, with no retropulsion -His alk phos is elevated -All is concerning for diffusely metastatic prostate cancer -I was clear with patient and family that prostate cancer is a tissue diagnosis, but radiographically this is concerning for metastatic prostate cancer -However what is more pressing is his acute onset of bilateral lower extremity weakness, urinary incontinence, ataxia, back pain that has come on in the last 2 weeks, were concerned that he might have spinal cord compression from the diffusely metastatic disease and or the T11 pathologic fracture -I did speak to hematology oncology who recommended discussion with orthopedic service for kyphoplasty, and if he is not deemed a surgical candidate, then he might benefit from radiation therapy -Patient and family was advised of the critical nature of his weakness, concerns for spinal cord compression, and time is of the essence, is getting Decadron -I am waiting for callback from Dr. Arevalo, is currently in the OR -We will keep patient n.p.o., continue diuretic therapy, continue to monitor -Patient and family wish; questions answered, agreed to proceed -I have confirmed with patient, informed family that he is a DNR/DNI, he is okay with kyphoplasty, and radiation therapy if it is required Vitals/I&O/Wt Last Vital Signs Temp 98.8 F 11/21/20 11:43 Pulse 90 11/21/20 11:43 Resp 12 11/21/20 11:43 BP 73/33 11/21/20 11:43 Pulse Ox 92 11/21/20 11:43 11/20/20 11/21/2021 22:59 06:59 14:59 Intake Total 120 / 120 Output Total 400 / 400 150 / 150 Balance -280 / -280 -150 / -150 Weight last 48 hrs Weight 73.936 kg Physical Exam Const: COMMON NORMALS: no acute distress and patient oriented x3 ORIENTATION/CONSCIOUSNESS: Yes awake, Yes oriented to person, Yes oriented to place and Yes oriented to time Neck/C-Spine: COMMON NORMALS: no JVD Cardio: COMMON NORMALS: no JVD, regular rate, regular rhythm, S1 normal heart sound present and S2 normal heart sound present RATE: regular rate RHYTHM: regular rhythm HEART SOUNDS: S1 normal heart sound present and S2 normal heart sound present GI: COMMON NORMALS: Normal to inspection, nondistended, normoactive bowel sounds present, Soft to palpation and non-tender PALPATION: Yes Soft to palpation Extremity: NARRATIVE EXTREMITY EXAM: 2+ pitting edema Neuro: COMMON NORMALS: patient oriented x3, CN's II-XII intact bilaterally, moves all extremities and no sensory deficits noted SENSORIUM/ORIENTATION: Yes oriented to person, Yes oriented to place and Yes oriented to time OTHER: Bilateral lower extremities, weakness present, bilaterally, 3 out of 5 bilaterally, progressing from plantar dorsiflexion, up to the calf muscles, up to the muscles of the thigh, does have a lot of pain with range of motion, no loss of sensation Data : 11/21/20 01:41 11/21/20 01:41 A&P Assessment and plan (1) Prostate cancer metastatic to multiple sites: -He was found to have enlarged prostate on imaging, prostate moderately enlarged and lobulated, with pelvic lymphadenopathy 2.1 x 2 cm left pelvic sidewall lymph node. 1.6 x 1.6 cm left external iliac lymph node. 3.1 by 2.6 cm lymph node near the confluence of the common iliac veins. -Patient has diffuse metastatic disease throughout the sacrum, pelvis, bilateral hips, lumbar and thoracic spine, -With an acute T11 pathologic fracture, mild, with no retropulsion -His alk phos is elevated -All is concerning for diffusely metastatic prostate cancer -I was clear with patient and family that prostate cancer is a tissue diagnosis, but radiographically this is concerning for metastatic prostate cancer -However what is more pressing is his acute onset of bilateral lower extremity weakness, urinary incontinence, ataxia, that has come on in the last 2 weeks, were concerned that he might have spinal cord compression from the diffusely metastatic disease and or the T11 pathologic fracture -I did speak to hematology oncology who recommended discussion with orthopedic service for kyphoplasty, and if he is not deemed a surgical candidate, then he might benefit from radiation therapy -Patient and family was advised of the critical nature of his weakness, concerns for spinal cord compression, and time is of the essence, continue Decadron -I am waiting for callback from Dr. Arevalo, is currently in the OR -We will keep patient n.p.o. -Patient and family wish; questions answered, agreed to proceed -I have confirmed with patient, informed family that he is a DNR/DNI, he is okay with kyphoplasty, and radiation therapy if it is required Status: Acute (2) Spinal cord injury: -Concerns for spinal cord compression resulting in ataxia, urinary incontinence, back pain, bilateral extremity weakness -Awaiting callback for Dr. Arevalo -Possibly might require radiation therapy if he is not deemed a good surgical candidate, will have Dr. 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% -he is due for AICD placement on Thursday next week -I do believe this is gradual worsening of his underlying congestive heart failure no hyponatremia, elevated BNP with congestive hepatopathy, -Continue Bumex 1 mg every 24 hours -Monitor respiratory status -Fluid restrictions 1500 cc -Telemetry monitoring Status: Acute (5) Weakness: Secondary to above Status: Acute (6) Urinary incontinence: Status: Acute (7) Back pain: Status: Acute (8) Ataxia: Status: Acute (9) High serum alkaline phosphatase level: Status: Acute (10) Hepatopathy: Status: Acute Additional A&P Information Has signs of liver cirrhosis, patient does not drink alcohol Patient does have a fever, with some evidence of ascites, will start him on Zosyn Pleural and pericardial effusion Recently he was started on prednisone by Dr. Pandey for pleuritic chest pain, discontinue prednisone as I am going to use Decadron No active signs of cardiac tamponade Goals of care discussed with the patient and his : He does not want chest compressions or intubation including defibrillation, he is DNR/DNI Cardiac diet DVT prophylaxis Lovenox Attestations Medical Necessity Statement*: Patient requires hospitalization, inpatient, greater than 2 midnights, for diffusely metastatic prostate cancer, concerns for spinal cord compression, with CHF exacerbation, Coding Level of Care Code Acute Tablet Making Machine Operator Helper for Amy Fwd Diagnoses Prostate cancer metastatic to multiple sites C61 Spinal cord injury T11 vertebral fracture S22.089A Acute exacerbation of CHF (congestive heart failure) I50.9 Weakness R53.1 Urinary incontinence R32 Back pain M54.9 Ataxia R27.0 High serum alkaline phosphatase level R74.8 Hepatopathy K76.9
--- NOTE | 2020-11-21 13:22 | PC.NURSE ---
Dr. Hernandez notified of pts hypotension. pt states that this is normal for him. Dr. Hernandez also notified that patient has a pacemaker and is unable to go for an MRI.
--- NOTE | 2020-11-21 16:10 | PC.PT ---
Dr. Goldberg verbally requested hold PT evaluation, to this therapist, until further notice.
[2020-11-22] VITALS (10 sets, daily range): BP systolic 82–110; BP diastolic 41–72; PULSE 73–92; RESP 16–18; TEMP 36.5–37.1; O2SAT 92–95
[2020-11-22] MEDS: piperacillin-tazobactam 3.375 GM in sodium chloride 0.9% (plus) 50 ML IV ×3 (02:29→17:29)
[2020-11-22 05:50] LABS: Basophils % 0.3 %; Hematocrit 38.2 % (42.0-52.0); Hemoglobin 12.1 g/dL (11.7-16.6); Lymphocytes # 0.6 10^3/uL (0.8-4.8); Lymphocytes % 8.5 %; Mean Corpuscular HGB Conc 31.7 g/dL (30.0-36.0); Mean Corpuscular Volume 91.6 fL (80-94); Mean Platelet Volume 10.5 fL (7.4-10.4); Monocytes # 0.4 10^3/uL (0.2-0.9); Monocytes % 5.7 %; Neutrophils % 80.9 %; Nucleated Red Blood Cells % 0 %; Platelet Count 158 10^3/cmm (130-400); Red Blood Count 4.17 10^6/uL (4.1-5.3); Red Cell Distribution Width 16.6 % (12.1-15.1); White Blood Count 7.2 10^3/uL (4.0-10.0)
[2020-11-22 05:56] LABS: INR 1.54 (0.8-1.2)
[2020-11-22 06:04] LABS: Alanine Aminotransferase 28 U/L (0-41); Alkaline Phosphatase 462 IU/L (40-130); Anion Gap 10.4 (5-19); Aspartate Amino Transferase 40 U/L (0-40); Blood Urea Nitrogen 36 mg/dL (8-23); Calcium 7.7 mg/dL (8.5-10.5); Carbon Dioxide 29 mmol/L (22-29); Chloride 99 mmol/L (98-107); Globulin 2.6 g/dL (1.3-4.6); Glucose 136 mg/dL (65-115); Osmolality Calculated 288 mOsm/kg (285-295); Potassium 4.4 mmol/L (3.5-5.1); Sodium 134 mmol/L (136-145); Total Bilirubin 0.9 mg/dL (0.15-1.2); Total Protein 4.6 g/dL (6.6-8.7)
[2020-11-22 06:05] LABS: C Reactive Protein 192.6 mg/L (0.0-4.9); Magnesium 1.8 mg/dL (1.7-2.3); Phosphorus 3.6 mg/dL (2.5-4.5)
[2020-11-22 06:14] LABS: NT Pro B Type Natriuretic Pept 24075 pg/mL (0-125)
--- NOTE | 2020-11-22 08:00 | IR_ITS ---
WS: [id number] MYELOGRAM THORACIC AND LUMBAR SPINE Fluoroscopy time: Fluoroscopic guided thoracic and lumbar myelogram CLINICAL INFORMATION: WEAKNESS IN LEGS AND HIPS POSSIBLE PROSTATE MELIGNANCY COMPARISON: None. TECHNIQUE: The procedure, including risks, benefits, and complications, were discussed with the patie nt who agreed to proceed. A timeout was performed to confirm correct patient, procedure, and site. Using sterile technique, the patient was prepped and draped in the usual sterile fashion. After admin istration of local anesthesia using 1% preservative-free lidocaine and using fluoroscopic guidance, a 22-gauge spinal needle was advanced into the subarachnoid space at the L2-3 level. Subsequently 13 c c of Omnipaque 300 was administered into the thecal sac. The needle was removed and hemostasis was ac hieved. Spot fluoroscopic images were obtained. Subsequently the table was tilted down and free flow of contrast was seen into the thoracic canal. Sp ot fluoroscopic images were obtained. FLUOROSCOPIC TIME: 2.[address] myelogram report for additional detail. IR/IR myelogram spine thorac/lumb IMPRESSION: Uncomplicated fluoroscopic-guided thoracic and lumbar myelogram. Please see CT report for anatomic detail.
--- NOTE | 2020-11-22 09:16 | PM.CONSULT ---
Providers/Reason For Consult Consulting Physican/Specialty*: hospitalist Reason for Consult*: weakness Attending Physician: Rodolfo Hernandez MD Primary Care Provider: Wolf Pandey MD History of Present Illness History of Present Illness Kameron Holt is a 75 year old male presented today with chief complaint of generalized weakness. Patient is stating that for last 2 to 3 weeks he has been experiencing weakness, he is not able to walk, his balance is off, he has been having urinary incontinence as well. This is associated with increased back pain as well. No chest pain or worsening of shortness of breath, he does take Lasix for his severe lower extremity edema. He does not drink he is a former smoker. Has history of BPH. Patient is denying night sweats, fever however endorsing weight loss. Diagnostics in the ER revealed mild leukocytosis, abnormal transaminases, extremely high alkaline phosphatase, enlarged prostate, congestive hepatopathy, high BNP, chest x-ray consistent with pleural effusion, has history of pericardial effusion as well, in the ER he received 40 mg IV Lasix Digital rectal exam revealed enlarged nodular prostate, firm consistency Concern for spinal cord compression, we will request CT scan of his spine Review of Systems Const: Reports: body aches, change in appetite, change in weight, fatigue and malaise; Denies: fever(s) or chills Eyes: Denies: change in vision, blurry vision or eye discomfort ENMT: Denies: throat pain or dental pain Card: Reports: swelling of feet/ankles, dyspnea on exertion and orthopnea; Denies: chest pain Resp: Reports: dyspnea GI: Denies: abdominal pain, nausea, vomiting or diarrhea : Denies: flank pain or dysuria Musc: Denies: neck pain or back pain Skin/Breast: Denies: rash Neuro: Reports: weakness in extremities; Denies: headache(s) Psych: Denies: anxiety, depression or sleeping more Endo: Denies: polyuria Eric/Lymph: Denies: easy bruising All/Imm: Denies: urticaria Meds/Allergies Home Medications and Allergies Home Medications Medication Instructions Recorded Confirmed Last Taken Type simvastatin 40 mg tablet 40 mg PO PRN 07/19/19 11/21/20 09/01/19 History hydrocodone 5 mg-acetaminophen 325 1 tab PO Q6H PRN 30 Days #90 tab 10/09/20 11/21/20 Unknown Rx mg tablet acetaminophen 500 mg tablet 500 - 1,000 mg PO PRN tab 11/08/20 11/21/20 Unknown History furosemide 40 mg tablet 40 mg PO BID #60 tab 11/08/20 11/21/20 Unknown Rx prednisone 20 mg tablet 20 mg PO DAILY #7 tab 11/15/20 11/21/20 Unknown Rx sacubitril-valsartan [Entresto] 0.5 tab PO QPM 11/21/20 11/21/20 Unknown History tamsulosin 0.4 mg PO BEDTIME 11/21/20 11/21/20 Unknown History temazepam 15 mg PO BEDTIME 11/21/20 11/21/20 Unknown History Allergies Allergy/AdvReac Type Severity Reaction Status Date / Time amlodipine [From Norvasc] Allergy Unknown Verified 11/15/20 10:50 apixaban Allergy Unknown Verified 11/15/20 10:50 benazepril Allergy Unknown Verified 11/15/20 10:50 candesartan [From Atacand] Allergy unknown Verified 11/15/20 10:50 carvedilol [From Coreg] Allergy Unknown Verified 11/15/20 10:50 hydrochlorothiazide Allergy Unknown Verified 11/15/20 10:50 irbesartan [From Avapro] Allergy Unknown Verified 11/15/20 10:50 lisinopril Allergy unknown Verified 11/15/20 10:50 losartan [From Cozaar] Allergy Unknown Verified 11/15/20 10:50 lovastatin Allergy Unknown Verified 11/15/20 10:50 metoprolol [From Toprol XL] Allergy Unknown Verified 11/15/20 10:50 nebivolol [From Bystolic] Allergy Unknown Verified 11/15/20 10:50 olmesartan [From Benicar] Allergy Unknown Verified 11/15/20 10:50 rivaroxaban Allergy Unknown Verified 11/15/20 10:50 rosuvastatin [From Crestor] Allergy Unknown Verified 11/15/20 10:50 spironolactone Allergy Unknown Verified 11/15/20 10:50 valsartan [From Diovan] Allergy Unknown Verified 11/15/20 10:50 warfarin Allergy unknown Verified 11/15/20 10:50 Current Medications Current Medications Generic Name Dose Route Start Last Admin Trade Name Freq PRN Reason Stop Dose Admin Hydrocodone Bitart/Acetaminophen 1 tab 11/21/20 04:50 11/21/20 10:21 Hydrocodone-Acetaminophen 5-325 Mg Tablet PO 1 tab Q6H PRN Administration pain Bumetanide 1 mg 11/21/20 09:00 11/21/20 10:24 Bumetanide 0.25 Mg/Ml Sdv 4 Ml IV 1 mg DAILY SHANAE Administration Dexamethasone 4 mg 11/21/20 09:00 11/21/20 21:10 Dexamethasone 4 Mg Tablet PO 4 mg QID SHANAE Administration Piperacillin Sod/Tazobactam 50 mls @ 12.5 mls/hr 11/21/20 09:30 11/22/20 06:45 Sod 3.375 gm/ Sodium Chloride IV Infused Q8H SHANAE Infusion Protocol Senna/Docusate Sodium 1 tab 11/21/20 09:00 11/21/20 10:29 Sennosides-Docusate Tablet PO Not Given DAILY SHANAE Tamsulosin HCl 0.4 mg 11/21/20 04:50 11/21/20 21:10 Tamsulosin 0.4 Mg Capsule PO 0.4 mg BEDTIME SHANAE Administration Temazepam 15 mg 11/21/20 04:50 11/21/20 21:10 Temazepam 15 Mg Capsule PO 15 mg BEDTIME SHANAE Administration PFSH Acute PFSH: Medical History Abdominal bloating Anxiety Arteriosclerosis of coronary artery Ascites Atrial fibrillation with RVR Cardiomyopathy Carotid stenosis, bilateral Chronic combined systolic and diastolic heart failure Chronic diarrhea Chronic eustachian tube dysfunction Chronic insomnia Chronic neck pain CKD (chronic kidney disease) Dyslipidemia Dysphagia Gastritis GERD (gastroesophageal reflux disease) H/O: HTN (hypertension) Heel spur Myocardial infarction of anterior wall Presence of cardiac pacemaker Thrombocytopenia Surgical History H/O colonoscopy with polypectomy History of placement of ear tubes S/P angioplasty with stent S/P AV (atrioventricular) dolores ablation S/P hernia repair S/P laparoscopic hernia repair OF A VENTRAL HERNIA WITH ATRIUM MESH 03/26/2016 S/P vasectomy Family History Other Heart disease Hypertension Social History Smoking and tobacco status: former smoker Alcohol intake: never Lives independently: Yes Household members: spouse Housing: House Marital status: Current occupational status: retired History of recent travel: No Dietary Habits: Current diet type/program: regular Caffeine: No Vitals/I&O/Wt Last Vital Signs Temp 97.7 F 11/22/20 07:54 Pulse 90 11/22/20 07:54 Resp 16 11/22/20 07:54 BP 83/42 11/22/20 07:54 Pulse Ox 93 11/22/20 07:54 11/21/20 11/22/20 11/22/20 22:59 06:59 14:59 Intake Total 50 / 100 50 / 150 Output Total 225 / 555 350 / 905 Balance -175 / -455 -300 / -755 Weight last 48 hrs Weight 163 lb Physical Exam Narrative: EXAM NARRATIVE: CONSTITUTIONAL: The patient is a normal appearing [] in no apparent distress. GENERAL: Patient in no acute distress. CARDIAC: Regular rate and rhythm. CHEST: Normal inspiratory effort, normal respiratory rate. ABDOMEN: Soft and nontender. SKIN: Clear, warm and intact. NEURO?PSYCH: The patient is alert and oriented to person, place and time. Sensorv /SILT Motor StrengthShoulder abduction C5 5/5Wrist extension C6 5/5Elbow extension C7 5/5Hand Forest Technology Professor C8 5/5Finger abduction T15/5 Radial/ Ulnar/ Median n intact LowerSensory (SILT)Motor StrengthHin flexion L2/3Ant/inner thigh 5/5Hip adduction L2/3 5/5Knee extension L4 Lat thigh, 5/5Toe dorsiflexion L5 5/5Ankle dorsiflexion L5/ R12Wgcgwey flexion S1 5/5 DTRBleeps 2+Triceps 2+Brachioradialis 2+Patellar 2+Achilles 2+ MUSCULOSKELETAL: [] UPPEREXTREMITIES: The patient had full active ROM in fingers, wrist, elbow, and shoulder. The patient demonstrated ability to fully flex/extend/abduct/adduct fingers, make ok sign, cross 2nd/3rd digits, extend 1st digit fully.. Radial pulse 2+, CR<2 seconds. LOWER EXTREMITIES: Pt has full, active ROM of toes, ankle, knee, and hip. Dorsalis pedis/posterior tibialis pulses 2+, CR<2 seconds. SPINE: Skin warm, dry, intact. A&P Assessment and plan (1) T11 vertebral fracture: awaiting CT myelogram Status: Acute Coding Level of Care Code Acute Global Transportation Manager for Amy Baig Diagnoses T11 vertebral fracture S22.089A
[2020-11-22] MEDS: dexamethasone 4 mg Tablet PO ×4 (10:14→21:19)
[2020-11-22] MEDS: sennosides-docusate Tablet 1 TAB PO (10:14)
[2020-11-22] MEDS: bumetanide 0.25 mg/mL SDV 4 mL 1 MG IV (10:14)
--- NOTE | 2020-11-22 11:30 | CT_ITS ---
WS: [id number] CT THORACIC SPINE TECHNIQUE: Contrast-enhanced CT of the thoracic spine with coronal and sagittal reformatted images. CLINICAL INFORMATION: CT MYELOGRAM - PROSTATE CA W POSS CORD COMPRESSION COMPARISON: None. DLP: 1205.[address] scans at [facility] use at least one of these dose optimization techniques: automat ed exposure control; mA and/or kV adjustment per patient size (includes targeted exams where dose is matched to clinical indication); or iterative reconstruction. FINDINGS: Mild thoracic curve. Mild thoracic kyphosis. Diffuse bony metastatic disease throughout the visualize d thoracic spine and bony structures. No significant spinal canal narrowing. Stable mild compression T11 superior endplate. No retropulsion. No evidence of epidural disease. Chronic right upper rib frac tures with callus formation. Small bilateral pleural effusions and bibasilar atelectasis. Cardiomegaly. Coronary calcification. CT/CT thoracic spine w con [id number] IMPRESSION: 1. Diffuse bony metastatic disease throughout the visualized thoracic spine an d bony structures. 2. No significant spinal canal narrowing or epidural disease. 3. Stable mild compression T11 superior endplate. No retropulsion.
--- NOTE | 2020-11-22 11:30 | CT_ITS ---
WS: [id number] CT LUMBAR SPINE MYELOGRAM TECHNIQUE: CT myelogram of the lumbar spine with coronal and sagittal reformatted images. CLINICAL INFORMATION: CT MYELOGRAM - PROSTATE CA W POSS COED COMPRESSION COMPARISON: None. DLP: 2274.[address] scans at [facility] use at least one of these dose optimization techniques: automat ed exposure control; mA and/or kV adjustment per patient size (includes targeted exams where dose is matched to clinical indication); or iterative reconstruction. FINDINGS: Small bilateral pleural effusions. Diffuse osseous metastatic disease throughout the visualized bony structures including the lumbar spi ne, pelvis and sacrum bony structures. No high-grade central canal narrowing. Normal tapering of the thecal sac distally. No evidence of significant epidural disease. Mild central canal stenosis L4-5 du e to mild disc bulging with facet arthropathy and ligamentum flavum hypertrophy. Mild right L3-4 and L4-[address]/CT lumbar spine w con [id number] IMPRESSION: 1. Diffuse osseous metastatic disease throughout the visualized bony structure s including the lumbar spine, pelvis and sacrum. 2. No high-grade central canal narrowing. No significant epidural disease. 3. Mild central canal stenosis L4-5 due to mild disc bulging with facet arthro kimberly and ligament flavum hypertrophy
--- NOTE | 2020-11-22 12:29 | PM.PN ---
Subjective Subjective: Interval history: Yesterday afternoon, I discussed case with Dr. Arevalo, who recommended MRI, patient could not have MRI as he had a pacemaker, decision was to pursue CT myelogram unfortunately could not be performed yesterday due to patient's Lovenox dose at 4 AM, CT myelogram will be performed this morning, decision about surgical intervention will be made with Dr. Arevalo inpatient, versus pursuing inpatient radiation therapy, I did discuss this with Dr. Gross, who agreed, This morning patient was examined, patient's and son are at bedside, he tells me that his strength in his lower extremities is improving, the swelling is still persisted, no headache, no blurry vision, no nausea, no vomiting, is pain is primary in the lower pelvis, no fevers overnight Vitals/I&O/Wt Last Vital Signs Temp 98.4 F 11/22/20 12:00 Pulse 73 11/22/20 12:00 Resp 17 11/22/20 12:00 BP 110/72 11/22/20 12:00 Pulse Ox 95 11/22/20 12:00 11/21/20 11/22/20 11/22/20 22:59 06:59 14:59 Intake Total 50 / 100 50 / 150 0 / 0 Output Total 225 / 555 350 / 905 Balance -175 / -455 -300 / -755 0 / 0 Weight last 48 hrs Weight 73.936 kg Physical Exam Const: COMMON NORMALS: no acute distress GENERAL APPEARANCE: cooperative and frail appearing ORIENTATION/CONSCIOUSNESS: Yes awake, Yes oriented to person, Yes oriented to place and Yes oriented to time Neck/C-Spine: COMMON NORMALS: no JVD Resp: COMMON NORMALS: normal respiratory effort, No retractions, No use of accessory muscles and clear to auscultation bilaterally AUSCULTATION: clear to auscultation bilaterally Cardio: COMMON NORMALS: no JVD, regular rate, regular rhythm, S1 normal heart sound present and S2 normal heart sound present RATE: regular rate RHYTHM: regular rhythm HEART SOUNDS: S1 normal heart sound present and S2 normal heart sound present GI: COMMON NORMALS: Normal to inspection, nondistended, normoactive bowel sounds present, Soft to palpation and non-tender PALPATION: Yes Soft to palpation Extremity: NARRATIVE EXTREMITY EXAM: 1+ pitting edema bilaterally Neuro: SENSORIUM/ORIENTATION: Yes oriented to person, Yes oriented to place and Yes oriented to time OTHER: Strength in bilateral lower extremities 3 out of 5 bilaterally Intact sensation Data : 11/22/20 05:32 11/22/20 05:32 Micro: Microbiology 11/22/20 10:26 Blood Culture - Preliminary Blood SPECIMEN COLLECTED 11/22/20 10:20 Blood Culture - Preliminary Blood SPECIMEN COLLECTED A&P Assessment and plan (1) Prostate cancer metastatic to multiple sites: -He was found to have enlarged prostate on imaging, prostate moderately enlarged and lobulated, with pelvic lymphadenopathy 2.1 x 2 cm left pelvic sidewall lymph node. 1.6 x 1.6 cm left external iliac lymph node. 3.1 by 2.6 cm lymph node near the confluence of the common iliac veins. -Patient has diffuse metastatic disease throughout the sacrum, pelvis, bilateral hips, lumbar and thoracic spine, -With an acute T11 pathologic fracture, mild, with no retropulsion -His alk phos is elevated -All is concerning for diffusely metastatic prostate cancer -I was clear with patient and family that prostate cancer is a tissue diagnosis, but radiographically this is concerning for metastatic prostate cancer -However what is more pressing is his acute onset of bilateral lower extremity weakness, urinary incontinence, ataxia, that has come on in the last 2 weeks, were concerned that he might have spinal cord compression from the diffusely metastatic disease and or the T11 pathologic fracture -I did speak to hematology oncology who recommended discussion with orthopedic service for kyphoplasty, and if he is not deemed a surgical candidate, then he might benefit from radiation therapy -Spoke to Dr. Arevalo, he felt the patient would only benefit from kyphoplasty if that was his pain location, however the pathologic fracture T11 is not enough to explain his weakness, he recommended MRI of the back, MRI cannot be performed due to his pacemaker, plan was to perform a CT myelogram which can only preperformed today given patient's Lovenox dose yesterday -We will have CT myelogram today, will have Dr. Arevalo weigh and see patient -If he is not deemed a surgical candidate, then I have already discussed with Dr. Gross, will pursue radiation therapy -We will keep patient n.p.o. for now -Patient and family wish; questions answered, agreed to proceed -I have confirmed with patient, informed family that he is a DNR/DNI, he is okay with kyphoplasty, and radiation therapy if it is required Status: Acute (2) Spinal cord injury: -Concerns for spinal cord compression resulting in ataxia, urinary incontinence, back pain, bilateral extremity weakness -From possible tumor burden resulting in spinal cord compression -Possibly might require radiation therapy if he is not deemed a good surgical candidate, will have Dr. 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% -he is due for AICD placement on Thursday next week -I do believe this is gradual worsening of his underlying congestive heart failure no hyponatremia, elevated BNP with congestive hepatopathy, -Continue Bumex 1 mg every 24 hours, hold off on increasing the dose given contrast exposure -Monitor respiratory status -Fluid restrictions 1500 cc -Telemetry monitoring Status: Acute (5) Weakness: Secondary to above Status: Acute (6) Urinary incontinence: Status: Acute (7) Back pain: Status: Acute (8) Ataxia: Status: Acute (9) High serum alkaline phosphatase level: Status: Acute (10) Hepatopathy: Status: Acute Additional A&P Information Has signs of liver cirrhosis, patient does not drink alcohol Patient does did have a fever on admission, afebrile, elevated CRP, elevated pro-Brooks with some evidence of ascites, will start him on Zosyn Pleural and pericardial effusion Recently he was started on prednisone by Dr. Pandey for pleuritic chest pain, discontinue prednisone as I am going to use Decadron No active signs of cardiac tamponade Goals of care discussed with the patient and his : He does not want chest compressions or intubation including defibrillation, he is DNR/DNI Cardiac diet DVT prophylaxis Lovenox on hold for CT myelogram Attestations Medical Necessity Statement*: Patient requires hospitalization, for metastatic prostate cancer, spinal cord compression, CHF exacerbation Coding Level of Care Code Acute Superintendent Maintenance for Amy Baig Diagnoses Prostate cancer metastatic to multiple sites C61 Spinal cord injury T11 vertebral fracture S22.089A Acute exacerbation of CHF (congestive heart failure) I50.9 Weakness R53.1 Urinary incontinence R32 Back pain M54.9 Ataxia R27.0 High serum alkaline phosphatase level R74.8 Hepatopathy K76.9
[2020-11-22] MEDS: iohexol 300 mg/mL 50 mL Btl IV (12:37)
--- NOTE | 2020-11-22 12:49 | PC.CHAP ---
Pastoral Care Encounter/Spiritual Assessment Type of Contact [] Declined streetcar repairer helper visit [] Patient/Family/Request visit [] Outpatient visit [] Follow-up visit [] Physician referral [] Code/Alert [x] Routine visit [] Staff referral [] Actively dying [] Patient sleeping [] Family support [] [] Out of room [] Palliative care [] [x] Receiving care in room [] Pre-surgical visit [] Trauma [] Long length of stay [] ICU visit [] Other: Relational/Emotional Strength [x] Patient feels connected with others/family/visitors/staff [] Distress [] Loneliness/isolation [] Abandonment Spirituality of Patient [x] Person of Natalie [] Attends Methodist of their Natalie [x] Believes in Prayer [] Reads Bible or Adventism materials [] There are Spiritual issues to be addressed Shovel Operator Interventions [x] Prayer [x] Active listening [x] Non-anxious presence [x] Spiritual/emotional support [] Crisis/trauma care [x] Spiritual counseling [] Bereavement support [] Provided bereavement packet [] Provided Bible/devotional materials [] Provided toy/stuffed animal, coloring book to patient or family member [] Provided Communion [] Anointing/[place] [] Salvation [x] Completed spiritual assessment [] Other: Impact on Illness or Injury [] Angry [] Fearful [x] Anxious [] Often cries [] Exhaustion [x] Unable to work [] Unable to attend jain [] Unable to walk/stand [] Unable to read [] Unable to drive [] Unable to eat/drink [] Unable to sleep [] Unable to be with family [] Patient intubated [] Other: Summary has had trsts waiting on doctors report, has a good attitude wnats to go home, Time spent with patient 10 mins
--- NOTE | 2020-11-22 16:25 | PC.CHAP ---
Pastoral Care Encounter/Spiritual Assessment Type of Contact [] Declined injection molding machine setter visit [x] Patient/Family/Request visit [] Outpatient visit [] Follow-up visit [] Physician referral [] Code/Alert [] Routine visit [] Staff referral [] Actively dying [] Patient sleeping [x] Family support [] [] Out of room [] Palliative care [] [] Receiving care in room [x] Pre-surgical visit [] Trauma [] Long length of stay [] ICU visit [] Other: Relational/Emotional Strength [x] Patient feels connected with others/family/visitors/staff [] Distress [] Loneliness/isolation [] Abandonment Spirituality of Patient [x] Person of Natalie [x] Attends Yarsani of their Natalie [x] Believes in Prayer [x] Reads Bible or Taoist materials [] There are Spiritual issues to be addressed Hospital Superintendent Interventions [x] Prayer [x] Active listening [x] Non-anxious presence [x] Spiritual/emotional support [] Crisis/trauma care [] Spiritual counseling [] Bereavement support [] Provided bereavement packet [] Provided Bible/devotional materials [] Provided toy/stuffed animal, coloring book to patient or family member [] Provided Communion [] Anointing/[place] [] Salvation [x] Completed spiritual assessment [] Other: Impact on Illness or Injury [] Angry [] Fearful [x] Anxious [] Often cries [] Exhaustion [] Unable to work [] Unable to attend mandaeism [] Unable to walk/stand [] Unable to read [] Unable to drive [] Unable to eat/drink [] Unable to sleep [] Unable to be with family [] Patient intubated [] Other: Summary Patient is waiting with family to hear from the Doctor concerning a recent discovery of cancer. Patient is a little anxious. Hospital Superintendent and patient spoke of his salvation and trust in Justo. Patient seems to be at peace with the possible thought of surgery and radiation treatments. injection molding machine setter inquired of any other needs, none at this time. Hospital Superintendent prayed for Patient and his family. Hospital Superintendent will continue to check on patient during his hospital stay. Time spent with patient 25 min
[2020-11-22] MEDS: tamsulosin 0.4 mg Capsule PO (21:19)
[2020-11-22] MEDS: temazepam 15 mg Capsule PO (21:19)
[2020-11-23] VITALS (9 sets, daily range): BP systolic 84–101; BP diastolic 47–64; PULSE 72–91; RESP 17–21; TEMP 36.4–36.7; O2SAT 93–96
[2020-11-23] MEDS: piperacillin-tazobactam 3.375 GM in sodium chloride 0.9% (plus) 50 ML IV ×3 (01:45→17:31)
[2020-11-23 06:37] LABS: Basophils % 0.3 %; Hematocrit 43.4 % (42.0-52.0); Hemoglobin 13.8 g/dL (11.7-16.6); Lymphocytes # 0.6 10^3/uL (0.8-4.8); Lymphocytes % 8.2 %; Mean Corpuscular HGB Conc 31.8 g/dL (30.0-36.0); Mean Corpuscular Hemoglobin 29.1 pg (28.0-34.0); Mean Corpuscular Volume 91.6 fL (80-94); Mean Platelet Volume 10.7 fL (7.4-10.4); Monocytes # 0.3 10^3/uL (0.2-0.9); Monocytes % 4.4 %; Neutrophils # 6.36 10^3/uL (1.8-7.7); Neutrophils % 81.7 %; Nucleated Red Blood Cells % 0 %; Platelet Count 179 10^3/cmm (130-400); Red Blood Count 4.74 10^6/uL (4.1-5.3); Red Cell Distribution Width 16.4 % (12.1-15.1); White Blood Count 7.8 10^3/uL (4.0-10.0)
[2020-11-23 06:53] LABS: INR 1.24 (0.8-1.2)
[2020-11-23 07:00] LABS: C Reactive Protein 130.8 mg/L (0.0-4.9); Magnesium 2.1 mg/dL (1.7-2.3); Phosphorus 4.3 mg/dL (2.5-4.5)
[2020-11-23 07:01] LABS: Alanine Aminotransferase 25 U/L (0-41); Albumin Level 2.6 g/dL (3.5-5.2); Alkaline Phosphatase 487 IU/L (40-130); Anion Gap 12.3 (5-19); Aspartate Amino Transferase 36 U/L (0-40); Blood Urea Nitrogen 42 mg/dL (8-23); Calcium 7.8 mg/dL (8.5-10.5); Carbon Dioxide 28 mmol/L (22-29); Chloride 99 mmol/L (98-107); Glucose 132 mg/dL (65-115); Osmolality Calculated 292 mOsm/kg (285-295); Potassium 4.3 mmol/L (3.5-5.1); Sodium 135 mmol/L (136-145); Total Bilirubin 0.8 mg/dL (0.15-1.2); Total Protein 5.6 g/dL (6.6-8.7)
[2020-11-23 07:05] LABS: NT Pro B Type Natriuretic Pept 17169 pg/mL (0-125); Procalcitonin 0.78 ng/mL (0-0.5)
[2020-11-23 07:08] LABS: Slide Review Slide Review Perform
--- NOTE | 2020-11-23 07:35 | PM.PN ---
Subjective Subjective: Interval history: Patient resting in bed comfortably Vitals/I&O/Wt Last Vital Signs Temp 98.0 F 11/23/20 04:02 Pulse 72 11/23/20 06:27 Resp 17 11/23/20 04:02 BP 84/47 11/23/20 04:02 Pulse Ox 93 11/23/20 04:02 11/22/20 11/23/20 11/23/20 22:59 06:59 14:59 Intake Total 50 / 100 50 / 150 Output Total 750 / 975 400 / 1375 Balance -700 / -875 -350 / -1225 Physical Exam Narrative: EXAM NARRATIVE: If 5 out of 5 strength bilateral lower extremities. Data : 11/23/20 06:20 11/23/20 06:20 Micro: Microbiology 11/22/20 10:26 Blood Culture - Preliminary Blood SPECIMEN COLLECTED 11/22/20 10:20 Blood Culture - Preliminary Blood SPECIMEN COLLECTED A&P Assessment and plan (1) Prostate cancer metastatic to multiple sites: At this point CT myelogram of the thoracic and lumbar spine do not show any areas of compression on the spinal cord. At this point I do not see any indications for any spinal surgery. Please call if something new occurs thank you Status: Acute Attestations Medical Necessity Statement*: Nothing from a spine surgery stand point Coding Level of Care Code Acute Director Of Distribution for Amy Baig Diagnoses Prostate cancer metastatic to multiple sites C61
[2020-11-23] MEDS: dexamethasone 4 mg Tablet PO ×4 (08:32→20:28)
[2020-11-23] MEDS: bumetanide 0.25 mg/mL SDV 4 mL 1 MG IV ×2 (08:32→20:28)
[2020-11-23] MEDS: sennosides-docusate Tablet 1 TAB PO (08:32)
[2020-11-23] MEDS: enoxaparin 40 mg/0.4 mL Syringe SUBCUT (09:21)
[2020-11-23] MEDS: atorvastatin 40 mg Tablet 20 MG PO (09:21)
[2020-11-23] MEDS: aspirin 81 mg EC Tablet PO (09:21)
--- NOTE | 2020-11-23 11:55 | P.PN_ITS ---
Subjective Subjective: Interval history: Yesterday afternoon, had a family meeting with patient's and patient's son about patient's clinical condition, patient was present, patient's myelogram does not show any significant spinal cord compression, his strength is improving, his T11 pathologic fracture is mild, and his pain does not in that location, thus he currently would not benefit from kyphoplasty, Dr. Arevalo agrees, I also spoke to Dr. Gross, as there is no significant spinal cord compression, patient currently would not benefit from urgent radiation therapy, plan is to go for a biopsy, patient and family agrees, I spoke to radiology, they recommended a nuclear bone scan, and likely go for a sacral biopsy, if patient is here till Thursday we can do the nuclear bone scan and possibly the sacral biopsy Patient was seen this morning, he tells me he is appetite has improved, still has bilateral extreme edema, has not gotten up out of bed, no chest pain, no shortness of breath, has some persistent lower pelvic pain Vitals/I&O/Wt Last Vital Signs Temp 97.9 F 11/23/20 11:38 Pulse 90 11/23/20 11:38 Resp 17 11/23/20 11:38 BP 94/55 11/23/20 11:38 Pulse Ox 94 11/23/20 11:38 11/22/20 11/23/20 11/23/20 22:59 06:59 14:59 Intake Total 50 / 100 50 / 150 120 / 120 Output Total 750 / 975 400 / 1375 125 / 125 Balance -700 / -875 -350 / -1225 -5 / -5 Physical Exam Const: COMMON NORMALS: no acute distress and patient oriented x3 GENERAL APPEARANCE: frail appearing HENMT: COMMON NORMALS: normocephalic HEAD & SCALP: normocephalic Neck/C-Spine: COMMON NORMALS: no JVD Resp: COMMON NORMALS: normal respiratory effort, No retractions, No use of accessory muscles and clear to auscultation bilaterally AUSCULTATION: clear to auscultation bilaterally Cardio: COMMON NORMALS: no JVD, regular rate, regular rhythm, S1 normal heart sound present and S2 normal heart sound present RATE: regular rate RHYTHM: regular rhythm HEART SOUNDS: S1 normal heart sound present and S2 normal heart sound present GI: COMMON NORMALS: Normal to inspection, nondistended, normoactive bowel sounds present, Soft to palpation, non-tender, No hepatosplenomegaly present, no masses and no bruits PALPATION: Yes Soft to palpation and Yes No hepatosplenomegaly present Extremity: COMMON NORMALS: capillary refill normal NARRATIVE EXTREMITY EXAM: 2+ pitting edema Neuro: COMMON NORMALS: patient oriented x3 Psych: COMMON NORMALS: mental status grossly normal Data : 11/23/20 06:20 11/23/20 06:20 Micro: Microbiology 11/22/20 10:26 Blood Culture - Preliminary Blood NEGATIVE TO DATE 11/22/20 10:20 Blood Culture - Preliminary Blood NEGATIVE TO DATE A&P Assessment and plan (1) Prostate cancer metastatic to multiple sites: -He was found to have enlarged prostate on imaging, prostate moderately enlarged and lobulated, with pelvic lymphadenopathy 2.1 x 2 cm left pelvic sidewall lymph node. 1.6 x 1.6 cm left external iliac lymph node. 3.1 by 2.6 cm lymph node near the confluence of the common iliac veins. -Patient has diffuse metastatic disease throughout the sacrum, pelvis, bilateral hips, lumbar and thoracic spine, -With an acute T11 pathologic fracture, mild, with no retropulsion -His alk phos is elevated -All is concerning for diffusely metastatic prostate cancer -I was clear with patient and family that prostate cancer is a tissue diagnosis, but radiographically this is concerning for metastatic prostate cancer -However what is more pressing is his acute onset of bilateral lower extremity weakness, urinary incontinence, ataxia, that has come on in the last 2 weeks, were concerned that he might have spinal cord compression from the diffusely metastatic disease and or the T11 pathologic fracture -I did speak to hematology oncology who recommended discussion with orthopedic service for kyphoplasty, and if he is not deemed a surgical candidate, then he might benefit from radiation therapy -Spoke to Dr. Arevalo, he felt the patient would only benefit from kyphoplasty if that was his pain location, however the pathologic fracture T11 is not enough to explain his weakness, he recommended MRI of the back, MRI cannot be performed due to his pacemaker, plan was to perform a CT myelogram which can only preperformed today given patient's Lovenox dose yesterday -CT myelogram did not show any significant spinal cord compression, Dr. Arevalo felt that he would benefit from surgical intervention, nor would he benefit from a T11 kyphoplasty as his pain is not in the location, Dr. Gross also believes that currently he is not a candidate for urgent radiation therapy as there is no evidence of spinal cord compression -Plan is on performing a nuclear bone scan if he remains here till Thursday, and hopefully can perform a sacral biopsy -Patient and family wish; questions answered, agreed to proceed -I have confirmed with patient, informed family that he is a DNR/DNI, he is okay with kyphoplasty, and radiation therapy if it is required -Continue Decadron for back pain, monitor serum calcium levels -SPEP UPEP ordered, PSA ordered Status: Acute (2) Spinal cord injury: -No current concerns for spinal cord compression Status: Acute (3) T11 vertebral fracture: Currently no pain, not a candidate currently for kyphoplasty Status: Acute (4) Acute exacerbation of CHF (congestive heart failure): -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 Cooper's office to let them know that he is in the hospital, went to voicemail -I do believe this is gradual worsening of his underlying congestive heart failure no hyponatremia, elevated BNP with congestive hepatopathy, -Continue Bumex 1 mg every 12 hours -Resume Entresto -Monitor respiratory status -Fluid restrictions 1500 cc -Telemetry monitoring Status: Acute (5) Weakness: Secondary to above, receiving physical therapy Status: Acute (6) Urinary incontinence: Status: Acute (7) Back pain: Hydrocodone for pain Status: Acute (8) Ataxia: Status: Acute (9) High serum alkaline phosphatase level: Status: Acute (10) Hepatopathy: Status: Acute Additional A&P Information Has signs of liver cirrhosis, patient does not drink alcohol Patient does did have a fever on admission, afebrile, elevated CRP, elevated pro-Brooks with some evidence of ascites, no fever complaints, no pain complaints, no shortness of breath, blood cultures negative, continue Zosyn for now Pleural and pericardial effusion Recently he was started on prednisone by Dr. Pandey for pleuritic chest pain, discontinue prednisone as I am going to use Decadron No active signs of cardiac tamponade Goals of care discussed with the patient and his : He does not want chest compressions or intubation including defibrillation, he is DNR/DNI Cardiac diet DVT prophylaxis Lovenox Attestations Medical Necessity Statement*: Patient requires hospitalization for diffusely metastatic malignancy likely prostate cancer, with low back pain, CHF exacerbation, bilateral extreme edema, generalized weakness, deconditioning Coding Level of Care Code Acute Electrical Prospecting Supervisor for Amy Fwd Diagnoses Prostate cancer metastatic to multiple sites C61 Spinal cord injury T11 vertebral fracture S22.089A Acute exacerbation of CHF (congestive heart failure) I50.9 Weakness R53.1 Urinary incontinence R32 Back pain M54.9 Ataxia R27.0 High serum alkaline phosphatase level R74.8 Hepatopathy K76.9
[2020-11-23 13:58] LABS: PSA Free >17.0 ng/mL; PSA Free Percentage NOT CALCULATED % (calc) (>25); PSA Total >1420.0 ng/mL (< OR = 4.0)
--- NOTE | 2020-11-23 15:25 | NM_ITS ---
WS: [id number] NUCLEAR MEDICINE WHOLE BODY BONE SCAN HISTORY: prostate cancer COMPARISON: No similar studies. Prior CTs of the spine. TECHNIQUE: The patient was injected with 23.5 mCi of Technetium 99m HDP and serial whole-body scintig omid have been performed with anterior and posterior images. There are innumerable lesions throughout the visualized osseous structures. Osteoblastic bone disease involving the skull, spine, ribs, pelvis, upper extremities and lower extre mities. 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 Near SuperScan as there is very minimal activity noted in the region of the kidneys. There is still some soft tissue up take. 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
[2020-11-23] MEDS: sacubitril/valsartan 24-26 mg Tablet 0.5 EACH PO (17:31)
[2020-11-23] MEDS: temazepam 15 mg Capsule PO (20:28)
[2020-11-23] MEDS: tamsulosin 0.4 mg Capsule PO (20:28)
[2020-11-24] VITALS (12 sets, daily range): BP systolic 85–104; BP diastolic 40–65; PULSE 87–93; RESP 18–20; TEMP 36.3–36.6; O2SAT 92–97
[2020-11-24] MEDS: piperacillin-tazobactam 3.375 GM in sodium chloride 0.9% (plus) 50 ML IV ×3 (02:15→17:19)
[2020-11-24 05:52] LABS: Basophils % 0.3 %; Hematocrit 38.1 % (42.0-52.0); Hemoglobin 12.7 g/dL (11.7-16.6); Lymphocytes # 0.4 10^3/uL (0.8-4.8); Lymphocytes % 5.9 %; Mean Corpuscular HGB Conc 33.3 g/dL (30.0-36.0); Mean Corpuscular Volume 89.9 fL (80-94); Mean Platelet Volume 10.7 fL (7.4-10.4); Monocytes # 0.3 10^3/uL (0.2-0.9); Monocytes % 3.8 %; Neutrophils # 6.38 10^3/uL (1.8-7.7); Neutrophils % 85.6 %; Nucleated Red Blood Cells % 0 %; Platelet Count 141 10^3/cmm (130-400); Red Blood Count 4.24 10^6/uL (4.1-5.3); Red Cell Distribution Width 15.9 % (12.1-15.1); White Blood Count 7.5 10^3/uL (4.0-10.0)
[2020-11-24 06:06] LABS: INR 1.28 (0.8-1.2)
[2020-11-24 06:30] LABS: NT Pro B Type Natriuretic Pept 14020 pg/mL (0-125); Procalcitonin 0.44 ng/mL (0-0.5)
[2020-11-24 06:41] LABS: Alanine Aminotransferase 18 U/L (0-41); Albumin Level 2.1 g/dL (3.5-5.2); Alkaline Phosphatase 386 IU/L (40-130); Anion Gap 10.9 (5-19); Aspartate Amino Transferase 25 U/L (0-40); Blood Urea Nitrogen 43 mg/dL (8-23); C Reactive Protein 56.5 mg/L (0.0-4.9); Calcium 7.4 mg/dL (8.5-10.5); Carbon Dioxide 27 mmol/L (22-29); Chloride 99 mmol/L (98-107); Globulin 2.5 g/dL (1.3-4.6); Glucose 134 mg/dL (65-115); Magnesium 1.9 mg/dL (1.7-2.3); Osmolality Calculated 289 mOsm/kg (285-295); Phosphorus 3.1 mg/dL (2.5-4.5); Potassium 3.9 mmol/L (3.5-5.1); Sodium 133 mmol/L (136-145); Total Bilirubin 0.6 mg/dL (0.15-1.2); Total Protein 4.6 g/dL (6.6-8.7)
[2020-11-24 06:53] LABS: PROTEIN, TOTAL 4.9 g/dL (6.1-8.1)
[2020-11-24] MEDS: dexamethasone 4 mg Tablet PO ×2 (08:27→17:19)
[2020-11-24] MEDS: aspirin 81 mg EC Tablet PO (08:27)
[2020-11-24] MEDS: sennosides-docusate Tablet 1 TAB PO (08:27)
[2020-11-24] MEDS: atorvastatin 40 mg Tablet 20 MG PO (08:27)
[2020-11-24] MEDS: enoxaparin 40 mg/0.4 mL Syringe SUBCUT (08:29)
--- NOTE | 2020-11-24 08:48 | PC.NURSE ---
patients blood pressure 87/43 this morning, Dr. Hernandez notified. patient to receive 1mg IV bumex. Dr. Hernandez stated to go ahead and give morning dose.
[2020-11-24] MEDS: bumetanide 0.25 mg/mL SDV 4 mL 1 MG IV (08:49)
[2020-11-24] MEDS: potassium chloride ER 20 mEq Tablet 40 MEQ PO (09:40)
--- NOTE | 2020-11-24 12:14 | P.PN_ITS ---
Subjective Subjective: Interval history: Patient tells me that he was up all night urinating, as his Bumex dose was given late last night, he is ambulating with nursing staff, he tells me that his weakness is improving, he is ambulating in a walker, does not feel a bit lightheaded, no headache, no blurry vision, no nausea, vomiting, chest pain, his edema is improving, shortness of breath is imp roving, Vitals/I&O/Wt Last Vital Signs Temp 97.9 F 11/24/20 04:00 Pulse 90 11/24/20 11:38 Resp 18 11/24/20 11:38 BP 94/56 11/24/20 11:38 Pulse Ox 95 11/24/20 11:38 11/23/20 11/24/20 11/24/20 22:59 06:59 14:59 Intake Total 110 / 400 620 / 1020 240 / 240 Output Total 100 / 625 875 / 1500 100 / 100 Balance 10 / -225 -255 / -480 140 / 140 Physical Exam Const: COMMON NORMALS: no acute distress and patient oriented x3 GENERAL APPEARANCE: frail appearing Neck/C-Spine: COMMON NORMALS: no JVD Resp: COMMON NORMALS: normal respiratory effort, No retractions, No use of accessory muscles and clear to auscultation bilaterally AUSCULTATION: clear to auscultation bilaterally Cardio: COMMON NORMALS: no JVD, regular rate, regular rhythm, S1 normal heart sound present and S2 normal heart sound present RATE: regular rate RHYTHM: regular rhythm HEART SOUNDS: S1 normal heart sound present and S2 normal heart sound present GI: COMMON NORMALS: Normal to inspection, nondistended, normoactive bowel sounds present, Soft to palpation, non-tender and No hepatosplenomegaly present PALPATION: Yes Soft to palpation and Yes No hepatosplenomegaly present Extremity: COMMON NORMALS: no calf tenderness NARRATIVE EXTREMITY EXAM: 1+ pitting edema Neuro: COMMON NORMALS: patient oriented x3 Psych: COMMON NORMALS: mental status grossly normal Data : 11/24/20 05:10 11/24/20 05:10 Micro: Microbiology 11/22/20 13:45 Urine Culture - Final Urine,Voided 11/22/20 10:26 Blood Culture - Preliminary Blood NEGATIVE TO DATE 11/22/20 10:20 Blood Culture - Preliminary Blood NEGATIVE TO DATE A&P Assessment and plan (1) Prostate cancer metastatic to multiple sites: -He was found to have enlarged prostate on imaging, prostate moderately enlarged and lobulated, with pelvic lymphadenopathy 2.1 x 2 cm left pelvic sidewall lymph node. 1.6 x 1.6 cm left external iliac lymph node. 3.1 by 2.6 cm lymph node near the confluence of the common iliac veins. -Patient has diffuse metastatic disease throughout the sacrum, pelvis, bilateral hips, lumbar and thoracic spine, -With an acute T11 pathologic fracture, mild, with no retropulsion -His alk phos is elevated -All is concerning for diffusely metastatic prostate cancer -I was clear with patient and family that prostate cancer is a tissue diagnosis, but radiographically this is concerning for metastatic prostate cancer -However what is more pressing is his acute onset of bilateral lower extremity weakness, urinary incontinence, ataxia, that has come on in the last 2 weeks, were concerned that he might have spinal cord compression from the diffusely metastatic disease and or the T11 pathologic fracture -I did speak to hematology oncology who recommended discussion with orthopedic service for kyphoplasty, and if he is not deemed a surgical candidate, then he might benefit from radiation therapy -Spoke to Dr. Arevalo, he felt the patient would only benefit from kyphoplasty if that was his pain location, however the pathologic fracture T11 is not enough to explain his weakness, he recommended MRI of the back, MRI cannot be performed due to his pacemaker, plan was to perform a CT myelogram which can only preperformed today given patient's Lovenox dose yesterday -CT myelogram did not show any significant spinal cord compression, Dr. Arevalo felt that he would benefit from surgical intervention, nor would he benefit from a T11 kyphoplasty as his pain is not in the location, Dr. Gross also believes that currently he is not a candidate for urgent radiation therapy as there is no evidence of spinal cord compression -Nuclear bone scan shows: -There are innumerable lesions throughout the visualized osseous structures. Osteoblastic bone disease involving the skull, spine, ribs, pelvis, upper extremities and lower extremities. 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 Near SuperScan as there is very minimal activity noted in the region of the kidneys. There is still some soft tissue uptake. Patient is aware -Plan is to discharge patient home for the next 24 hours, outpatient follow-up for biopsy, outpatient follow-up with hematology/oncology, however if he is here till Thursday, can discuss with radiology about pursuing a sacral biopsy -Patient voices any, all questions answered agreed to proceed -I have confirmed with patient, informed family that he is a DNR/DNI -Decrease Decadron to 4 mg twice daily, serum calcium levels 7.4 -SPEP UPEP ordered, PSA ordered Status: Acute (2) Spinal cord injury: -No current concerns for spinal cord compression Status: Acute (3) T11 vertebral fracture: Currently no pain, not a candidate currently for kyphoplasty Status: Acute (4) Acute exacerbation of CHF (congestive heart failure): -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 Cooper's office to let them know that he is in the hospital, went to voicemail -I do believe this is gradual worsening of his underlying congestive heart failure no hyponatremia, elevated BNP with congestive hepatopathy, -1 more dose of Bumex, hold tonight's dose, as patient is a bit lightheaded, sodium 133, potassium 3.9, creatinine 1.1 -Resume Entresto -Monitor respiratory status -Fluid restrictions 1500 cc -Telemetry monitoring Status: Acute (5) Weakness: Secondary to above, receiving physical therapy Status: Acute (6) Urinary incontinence: Status: Acute (7) Back pain: Hydrocodone for pain Status: Acute (8) Ataxia: Status: Acute (9) High serum alkaline phosphatase level: Status: Acute (10) Hepatopathy: Status: Acute Additional A&P Information Has signs of liver cirrhosis, patient does not drink alcohol Patient does did have a fever on admission, afebrile, elevated CRP, elevated pro-Brooks with some evidence of ascites, no fever complaints, no pain complaints, no shortness of breath, blood cultures negative, continue Zosyn for now Pleural and pericardial effusion Recently he was started on prednisone by Dr. Pandey for pleuritic chest pain, discontinue prednisone as I am going to use Decadron No active signs of cardiac tamponade Goals of care discussed with the patient and his : He does not want chest compressions or intubation including defibrillation, he is DNR/DNI Cardiac diet DVT prophylaxis Lovenox Plan for today, continue Bumex, hold tonight's dose, continue PT OT, hopefully can discharge the next 24 hours, continue Decadron Attestations Medical Necessity Statement*: Patient requires hospitalization for diffusely metastatic prostate cancer, CHF exacerbation Coding Level of Care Code Acute [employer] Diagnoses Prostate cancer metastatic to multiple sites C61 Spinal cord injury T11 vertebral fracture S22.089A Acute exacerbation of CHF (congestive heart failure) I50.9 Weakness R53.1 Urinary incontinence R32 Back pain M54.9 Ataxia R27.0 High serum alkaline phosphatase level R74.8 Hepatopathy K76.9
[2020-11-24 14:02] LABS: Creatinine, Random Urine 27 mg/dL (20-320); Protein, Total, Random 16 mg/dL (5-25); Protein/Creatinine Ratio 0.593 (0.022-0.128); Protein/Creatinine Ratio 593 mg/g creat (22-128)
--- NOTE | 2020-11-24 16:46 | DCPLANNER ---
pg 2 of im updated and reviewed with pt. He has heard that before. No questions, copy provided.
[2020-11-24] MEDS: tamsulosin 0.4 mg Capsule PO (21:35)
[2020-11-24] MEDS: temazepam 15 mg Capsule PO (21:36)
[2020-11-25] VITALS (7 sets, daily range): BP systolic 93–98; BP diastolic 62–64; PULSE 73–90; RESP 14–18; TEMP 36.2–36.7; O2SAT 93–99
[2020-11-25] MEDS: piperacillin-tazobactam 3.375 GM in sodium chloride 0.9% (plus) 50 ML IV ×2 (02:06→08:47)
[2020-11-25 05:08] LABS: Basophils % 0.2 %; Hematocrit 43.1 % (42.0-52.0); Hemoglobin 13.8 g/dL (11.7-16.6); Lymphocytes # 0.5 10^3/uL (0.8-4.8); Lymphocytes % 6.1 %; Mean Corpuscular Hemoglobin 29.2 pg (28.0-34.0); Mean Corpuscular Volume 91.1 fL (80-94); Mean Platelet Volume 10.3 fL (7.4-10.4); Monocytes # 0.5 10^3/uL (0.2-0.9); Monocytes % 5.5 %; Neutrophils # 6.96 10^3/uL (1.8-7.7); Neutrophils % 83.6 %; Nucleated Red Blood Cells % 0 %; Platelet Count 151 10^3/cmm (130-400); Red Blood Count 4.73 10^6/uL (4.1-5.3); Red Cell Distribution Width 15.9 % (12.1-15.1); White Blood Count 8.3 10^3/uL (4.0-10.0)
[2020-11-25 05:36] LABS: Alanine Aminotransferase 19 U/L (0-41); Albumin Level 2.1 g/dL (3.5-5.2); Alkaline Phosphatase 371 IU/L (40-130); Anion Gap 12.3 (5-19); Aspartate Amino Transferase 24 U/L (0-40); Blood Urea Nitrogen 36 mg/dL (8-23); Calcium 7.7 mg/dL (8.5-10.5); Carbon Dioxide 27 mmol/L (22-29); Chloride 100 mmol/L (98-107); Globulin 2.6 g/dL (1.3-4.6); Glucose 132 mg/dL (65-115); NT Pro B Type Natriuretic Pept 12334 pg/mL (0-125); Osmolality Calculated 290 mOsm/kg (285-295); Phosphorus 2.6 mg/dL (2.5-4.5); Potassium 4.3 mmol/L (3.5-5.1); Sodium 135 mmol/L (136-145); Total Bilirubin 0.6 mg/dL (0.15-1.2); Total Protein 4.7 g/dL (6.6-8.7)
[2020-11-25] MEDS: aspirin 81 mg EC Tablet PO (08:46)
[2020-11-25] MEDS: dexamethasone 4 mg Tablet PO (08:46)
[2020-11-25] MEDS: potassium chloride ER 20 mEq Tablet 40 MEQ PO (08:46)
[2020-11-25] MEDS: sennosides-docusate Tablet 1 TAB PO (08:46)
[2020-11-25] MEDS: enoxaparin 40 mg/0.4 mL Syringe SUBCUT (08:47)
[2020-11-25] MEDS: atorvastatin 40 mg Tablet 20 MG PO (08:47)
--- NOTE | 2020-11-25 11:10 | PM.DCS ---
Discharge Providers Date of Admission: 11/21/20 04:50 Date of Discharge: November 25, 2020 Attending Provider at Admission: Ro Mosqueda MD Attending Provider at Discharge: Rodolfo Hernandez MD Primary Care Provider: Wolf Pandey MD Diagnoses at Discharge Discharge Diagnosis (1) Prostate cancer metastatic to multiple sites: Status: Acute (2) Spinal cord injury: Status: Acute (3) T11 vertebral fracture: Status: Acute (4) Acute exacerbation of CHF (congestive heart failure): Status: Acute (5) Weakness: Status: Acute (6) Urinary incontinence: Status: Acute (7) Back pain: Status: Acute (8) Ataxia: Status: Acute (9) High serum alkaline phosphatase level: Status: Acute (10) Hepatopathy: Status: Acute Reason for Visit Reason for Visit: WEAKNESS Hospital Course Hospital Course This is a 75-year-old male with a past medical history of atrial fibrillation status post AV node ablation, pacemaker placement, patient refused anticoagulation, history of nonischemic cardiomyopathy with ejection fraction of 15%, due for AICD placement on Thursday, history of CKD, hypertension, hyperlipidemia, BPH, who presents to [facility] due to complaints of generalized weakness Patient was admitted to [facility] for generalized weakness: He was found to have likely innumerable lesions throughout the visual osseous structures concerning for diffusely metastatic prostate cancer -Total PSA 1420 -He was found to have enlarged prostate on imaging, prostate moderately enlarged and lobulated, with pelvic lymphadenopathy 2.1 x 2 cm left pelvic sidewall lymph node. 1.6 x 1.6 cm left external iliac lymph node. 3.1 by 2.6 cm lymph node near the confluence of the common iliac veins. -Patient has diffuse metastatic disease throughout the sacrum, pelvis, bilateral hips, lumbar and thoracic spine -With an acute T11 pathologic fracture, mild, with no retropulsion -His alk phos is elevated -All is concerning for diffusely metastatic prostate cancer -I was clear with patient and family that prostate cancer is a tissue diagnosis, but radiographically this is concerning for metastatic prostate cancer -However what was initially concerning was given his bilateral extremity weakness, we were concerned for spinal cord compression -I did speak to hematology oncology who recommended discussion with orthopedic service for kyphoplasty, and if he is not deemed a surgical candidate, then he might benefit from radiation therapy -Spoke to Dr. Arevalo, he felt the patient would only benefit from kyphoplasty if that was his pain location, however the pathologic fracture T11 is not enough to explain his weakness, he recommended MRI of the back, MRI cannot be performed due to his pacemaker, plan was to perform a CT myelogram -CT myelogram did not show any significant spinal cord compression, Dr. Arevalo felt that he would benefit from surgical intervention, nor would he benefit from a T11 kyphoplasty as his pain is not in the location, Dr. Gross also believes that currently he is not a candidate for urgent radiation therapy as there is no evidence of spinal cord compression -Nuclear bone scan shows: -There are innumerable lesions throughout the visualized osseous structures. Osteoblastic bone disease involving the skull, spine, ribs, pelvis, upper extremities and lower extremities. 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 Near SuperScan as there is very minimal activity noted in the region of the kidneys. There is still some soft tissue uptake. Patient is aware -Patient was kept on Decadron, tapering dose, and clinically monitored, no significant evidence of hypercalcemia -Patient received PT OT as inpatient, he clinically improved, his bilateral extremity weakness improved, likely secondary to CHF, weakness related to diffusely metastatic prostate cancer -Patient will be discharged with a close follow-up with Dr. Gross in the next 1 to 3 days -I did speak to Dr. Velasquez, who recommended nuclear bone scan to target biopsy site, which has been performed, patient will follow up with Dr. Velasquez in the next few days for possible sacral biopsy or optimal biopsy site based on imaging findings -I have confirmed with family and patient he wants to have full evaluation for this metastatic cancer, he is agreeable to biopsy, he wants to know what the options are available to him, he is agreeable to further testing evaluation, he has declined hospice -I have confirmed with patient, informed family that he is a DNR/DNI -Discharged on tapering dose of Decadron, follow-up with primary care provider next week to check serum calcium levels -SPEP UPEP ordered and pending on discharge Spinal cord injury: -No current concerns for spinal cord compression T11 vertebral fracture: Currently no pain, not a candidate currently for kyphoplasty Acute exacerbation of CHF (congestive heart failure): -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 Cooper's office to let them know that he is in the hospital, unable to leave message -I do believe this is gradual worsening of his underlying congestive heart failure no hyponatremia, elevated BNP with congestive hepatopathy, - discharged on Bumex 1 mg daily, with metolazone 5 mg Thursday, with potassium replacement -Sodium on discharge 135, creatinine discharge 1.1, potassium discharge 4.3 -Patient was instructed that if he were to have more than a 2 pound weight gain, bilateral extremity edema, take an extra 1 mg of Lasix -Follow-up with cardiology Weakness: Secondary to above, arrange home health care Status: Acute Back pain: Hydrocodone for pain, 7-day supply given Has signs of liver cirrhosis, patient does not drink alcohol Patient does did have a fever on admission, afebrile, elevated CRP, elevated pro-Brooks with some evidence of ascites, no fever complaints, no pain complaints, no shortness of breath, blood cultures negative, antibiotics discontinued on discharge Pleural and pericardial effusion Recently he was started on prednisone by Dr. Pandey for pleuritic chest pain, No active signs of cardiac tamponade Goals of care discussed with the patient and his : He does not want chest compressions or intubation including defibrillation, he is DNR/DNI Physical Exam Const: COMMON NORMALS: no acute distress and patient oriented x3 Neck/C-Spine: COMMON NORMALS: no JVD Resp: COMMON NORMALS: normal respiratory effort, No retractions, No use of accessory muscles and clear to auscultation bilaterally AUSCULTATION: clear to auscultation bilaterally Cardio: COMMON NORMALS: no JVD, regular rate, regular rhythm, S1 normal heart sound present and S2 normal heart sound present RATE: regular rate RHYTHM: regular rhythm HEART SOUNDS: S1 normal heart sound present and S2 normal heart sound present GI: COMMON NORMALS: Normal to inspection, nondistended, normoactive bowel sounds present, Soft to palpation, non-tender, No hepatosplenomegaly present and no bruits PALPATION: Yes Soft to palpation and Yes No hepatosplenomegaly present Extremity: COMMON NORMALS: no pedal edema Neuro: COMMON NORMALS: patient oriented x3 Psych: COMMON NORMALS: mental status grossly normal Discharge Data Data Completed and Pending: Completed Studies During Hospitalization Category Date Time Status CT abdomen pelvis w con* [id number] Urge nt Cat Scan 11/21/20 02:[address] lumbar spine w con [id number] Routine Cat Scan 11/22/20 11:[address] lumbar spine w o con* [id number] Stat Cat Scan 11/21/20 04:[address] thoracic spin wo con* [id number] Stat Cat Scan 11/21/20 04:[address] thoracic spine w con [id number] Routi ne Cat Scan 11/22/20 11:30 Completed IR myelogram spin e thorac/lumb Stat Exams 11/22/20 08:00 Completed XR chest 1V bird ble [id number] Urgent Exams 11/21/20 01:36 Completed NM bone scan whol e body* [id number] Stat Nuc Med 11/23/20 15:25 Completed Pending at discharge Category Date Time Status Blood Culture Sta t Lab 11/22/20 10:26 Results Magnesium AM LABS Lab 11/26/20 04:00 Ordered Magnesium AM LABS Lab 11/27/20 04:00 Ordered NT Pro B Type Peggy riuretic Pept QAM Lab 11/26/20 06:00 Ordered NT Pro B Type Peggy riuretic Pept QAM Lab 11/27/20 06:00 Ordered Phosphorus AM LAB S Lab 11/26/20 04:00 Ordered Phosphorus AM LAB S Lab 11/27/20 04:00 Ordered Sputum Culture an d Gram Stain Stat Lab 11/22/20 09:05 Uncollected Total Protein Lolis ctrophoresis Stat Lab 11/22/20 Results Urine Protein Lolis ctrop Random Stat Lab 11/22/20 13:45 Results Labs from last 24 hours 11/25/20 11/25/20 11/22/20 04:40 04:40 13:45 WBC 8.3 RBC 4.73 Hgb 13.8 Hct 43.1 MCV 91.1 MCH 29.2 MCHC 32.0 RDW 15.9 H Plt Count 151 MPV 10.3 Neut % (Auto) 83.6 Lymph % (Auto) 6.1 Toole % (Auto) 5.5 Eos % (Auto) 0.0 Baso % (Auto) 0.2 Neut # (Auto) 6.96 Lymph # (Auto) 0.5 L Toole # (Auto) 0.5 Eos # (Auto) 0.0 Baso # (Auto) 0.0 Nucleated RBC % (a uto) 0 Nucleated RBCs # 0.0 Sodium 135 L Potassium 4.3 Chloride 100 Carbon Dioxide 27 Anion Gap 12.3 BUN 36 H Creatinine 1.1 GFR Calculation Not Reportable Glucose 132 H Calculated Osmolal ity 290 Calcium 7.7 L Phosphorus 2.6 Magnesium 2.0 Total Bilirubin 0.6 AST 24 ALT 19 Alkaline Phosphata se 371 H NT-Pro-B Natriuret Pep 95670 H Total Protein 4.7 L Albumin 2.1 L Globulin 2.6 Ur Random Creatini ne 27 U Random Total Pro tein 16 Protein/Creatinin Ratio 593 H Protein/Creat Rati o 24h 0.593 H Vitals: Last Vital Signs Temp 97.6 F 11/25/20 11:03 Pulse 90 11/25/20 11:03 Resp 14 11/25/20 11:03 BP 93/62 11/25/20 11:03 Pulse Ox 96 11/25/20 11:03 Discharge Plan Discharge Patient Disposition: Home Health Service Condition: Stable Prescriptions: New aspirin 81 mg Tablet,Delayed Release (Dr/Ec) 81 mg PO DAILY 30 Days Qty: 30 RF: 0 dexamethasone 4 mg Tablet See Rx Instructions .ROUTE .COMPLEX 14 Days Qty: 13 RF: 0 Klor-Con M20 20 mEq Tablet,Er Particles/Crystals 40 meq PO DAILY 30 Days Qty: 30 RF: 0 bumetanide 1 mg tablet 1 mg PO DAILY 30 Days Qty: 30 RF: 0 metolazone 5 mg tablet 5 mg PO .mwf 30 Days Qty: 12 RF: 0 Continued acetaminophen [Tylenol Extra Strength] 500 mg tablet 500 - 1,000 mg PO PRN RF: 0 simvastatin 40 mg tablet 40 mg PO PRN RF: 0 hydrocodone-acetaminophen 5-325 mg tablet 1 tab PO Q6H PRN (Reason: pain) 30 Days Qty: 90 RF: 0 temazepam 15 mg capsule 15 mg PO BEDTIME RF: 0 tamsulosin 0.4 mg capsule 0.4 mg PO BEDTIME RF: 0 Entresto 24-26 mg tablet 0.5 tab PO QPM RF: 0 Discontinued furosemide 40 mg tablet 40 mg PO BID Qty: 60 RF: 3 prednisone 20 mg tablet 20 mg PO DAILY Qty: 7 RF: 0 temazepam 15 mg capsule 15 mg PO .at bedtime Qty: 30 RF: 3 Discharge Orders: Discharge Order (Routine); Ordered 11/25/20 Ordered By: Rodolfo Hernandez Other Ambulatory Orders: DME: [facility] (Order) Location: None Selected Ordered By: Rodolfo Hernandez Referrals: Wolf Pandey MD [Primary Care Provider] - 1-3 days (hospital follow up CALL [facility] THURSDAY MORNING TO SCHEDULE FOLLOW UP ) Harris Velasquez MD [Staff Physician] - 1-3 days (sacral biopsy of lesion, for possible prostate cancer, bone scan done CALL [facility] THURSDAY MORNING TO SCHEDULE A FOLLOW UP APPOINTMENT ) Aba Cooper MD [Physician] - 2 weeks (newly diagnosed metastatic prostate cancer, needs to have icd placed on thursday, but will need to be delayed until patient talks to elena about overall prognosis CALL [facility] THURSDAY MORNING TO SCHEDULE FOLLOW UP APPOINTMENT ) Qi Velásquez MD [Physician] - 1 month (CALL [facility] THURSDAY MORNING TO SCHEDULE FOLLOW UP APPOINTMENT ) Guicho Gross MD [Staff Physician] - 1-3 days (metastatic prostate cancer CALL [facility] Thursday TO SCHEDULE FOLLOW UP APPOINTMENT ) Discharge Diet: Regular Discharge Activity: Increase activity as tolerated Patient Instructions: Bumetanide (By mouth), Potassium Chloride (By mouth), Aspirin (By mouth), Dexamethasone (By mouth), Opioid Safety Activity Restrictions/Additional Instructions: -Please follow-up with Dr. Gross in the next few days for discussion of diffusely metastatic lesions, concerning for prostate cancer -Dr. Velasquez office, radiology should follow-up with you in the next few days to arrange a biopsy -Please follow-up with primary care provider in the next few days -Please ambulate with care, if you fall please taken very seriously -Monitor for worsening weakness, monitor for headache, monitor for blurry vision, if so go to the emergency room -I have discharged on Decadron 4 mg tapering dose, have primary care provider check a serum calcium levels in the next few days to avoid hypercalcemia -You have a schedule for an ICD to be placed tomorrow by Dr. Cooper, this should be delayed until he speak to Dr. Gross about the overall prognosis of your metastatic lesions, concerning for prostate cancer, -For CHF, take Bumex 1 mg daily, with with metolazone only on Thursday, potassium replacement as prescribed -If you gain more than 2 pounds, are increasingly short of breath take an extra 1 mg of Bumex -Follow-up with cardiology in 2 to 3 weeks Discharge Attestations Time Spent in Discharge Care*: greater than 30 min Quality Metrics Clinical Quality Measures During this hospital stay, did patient experience: None Coding Level of Care Code Acute [facility]g [facility] note Diagnoses Prostate cancer metastatic to multiple sites C61 Spinal cord injury T11 vertebral fracture S22.089A Acute exacerbation of CHF (congestive heart failure) I50.9 Weakness R53.1 Urinary incontinence R32 Back pain M54.9 Ataxia R27.0 High serum alkaline phosphatase level R74.8 Hepatopathy K76.9
[2020-11-26 12:04] LABS: ALBUMIN 2.2 g/dL (3.8-4.8); ALPHA 1 GLOBULIN 0.6 g/dL (0.2-0.3); ALPHA 2 GLOBULIN 0.7 g/dL (0.5-0.9); BETA 1 GLOBULIN 0.4 g/dL (0.4-0.6); BETA 2 GLOBULIN 0.4 g/dL (0.2-0.5); GAMMA GLOBULIN 0.7 g/dL (0.8-1.7)
[2020-11-26 15:59] LABS: Albumin,Urine Random 100 %; Alpha-1-Globulins Urine Random 0 %; Alpha-2-Globulins Urine Random 0 %; Beta-Globulin,Urine Random 0 %; Gamma Globulin,Urine Random 0 %
== END 2020-11-25 12:55 | disposition home health service (06) | DRG 291 ==
LOC: ER 03:20 → MEDSURG 06:46
PROVIDERS: Admitting Provider Internal Medicine; Emergency Provider Emergency Medicine; PCP Internal Medicine; Visit Provider Family Medicine
DX: I13.0 Hypertensive heart and chronic kidney disease with heart failure and stage 1 through stage 4 chronic kidney disease, or unspecified chronic kidney disease (principal); I50.43 Acute on chronic combined systolic (congestive) and diastolic (congestive) heart failure; C79.51 Secondary malignant neoplasm of bone; M84.48XA Pathological fracture, other site, initial encounter for fracture; R18.8 Other ascites; I42.8 Other cardiomyopathies; N18.9 Chronic kidney disease, unspecified; I25.10 Atherosclerotic heart disease of native coronary artery without angina pectoris; C61 Malignant neoplasm of prostate; N40.1 Benign prostatic hyperplasia with lower urinary tract symptoms; N39.498 Other specified urinary incontinence; R53.1 Weakness; R59.0 Localized enlarged lymph nodes; R27.0 Ataxia, unspecified; R74.8 Abnormal levels of other serum enzymes; E78.5 Hyperlipidemia, unspecified; K74.60 Unspecified cirrhosis of liver; F41.9 Anxiety disorder, unspecified; I25.2 Old myocardial infarction; M54.9 Dorsalgia, unspecified; R50.9 Fever, unspecified; Z66 Do not resuscitate; Z95.0 Presence of cardiac pacemaker; Z79.891 Long term (current) use of opiate analgesic; Z87.891 Personal history of nicotine dependence; Z95.5 Presence of coronary angioplasty implant and graft; Z79.52 Long term (current) use of systemic steroids
CPT/HCPCS: 36415; 62305; 71045; 72120; 72128; 72129; 72131; 72132; 74177; 78306; 80053; 81001; 83735; 83880; 84100; 84145; 84154; 84155; 84165; 84484; 85025; 85610; 86140; 87040; 87086; 93005; 96372; 96374; 96375; 97161; 97165; 97530; 99285; A9561; J1650; J1940; J2270; J2543; J3490; J8540; Q9967

== ENCOUNTER 2020-11-27 11:55 | Outpatient (CLI) | payer MEDICARE, SELFPAY ==
--- NOTE | 2020-11-28 14:23 | ONC CON_ITS ---
Dr. Gross New Patient Note Patient: Kameron Marie Unit #: [id number]: 1945 Dicatated By: Guicho Gross M.D.Date of Visit: November 27, 2020 Onc MED New Patient/Consult Referring Physician: Rodolfo Hernandez History of Present Illness: Mr. Kameron marie, is a 75-year-old gentleman with a complex medical history including atrial fibrillation, cardiomyopathy, with 15% ejection fraction, systolic and diastolic heart failure, chronic renal disease, hypertension, history of myocardial infarction, status post cardiac pacemaker, who was admitted to hospital on November 21, 2020 with congestive heart failure and progressive weakness over the period of 1 week, as per patient he could not move on his own, it was even hard for him to get up from the chair, also complaining of progressive back pain mostly in the middle and lower part but denies any urine or stool incontinence but constipation due to pain medication, denies any focal weakness in lower extremities, denies any numbness in the lower extremities. Patient had severe lower extremity edema, which is improving with diuresis., Because of back pain he underwent CT scan of abdomen pelvis on November 21, 2020 which showed 2.1 x 2 cm left pelvic sidewall lymphadenopathy, 1.6 x 1.6 cm left external iliac lymph node, 3.1 x 2.6 cm lymph node near confluence of common iliac veins. And prostate is moderately enlarged and lobulated., Hepatic cirrhosis, tiny amount of ascites, moderate cardiomegaly, small bilateral pleural effusion, umbilical hernia containing nonobstructed loop of bowel, and CT scan of spine done on November 21, 2020 showed multiple lytic and blastic lesions involving L5 vertebral body. Multiple lytic lesion present in the trabecular bone throughout the lumbar spine., Diffuse metastatic bone disease multilevel degenerative disease disc and joint disease most pronounced in L4-L5. CT thoracic spine showed mild pathological fracture at T11, diffuse lytic and sclerotic lesions of multiple vertebral body consistent with metastatic disease, no bony foraminal and canal stenosis. Multiple vertebral bodies are involved enough to be worrisome for development of pathological fracture. His lab work-up done on November 25, 2020 showed white blood count 8.3 hemoglobin 13.8 hematocrit 43.1 platelets 151,000 CMP within normal limits including calcium 7.7 creatinine 1.1, bone scan done on November 21, 2020 shows diffuse osteoblastic metastatic bone disease, likely prostate cancer Serum protein electrophoresis done on November 21, 2020 showed no monoclonal gammopathy., Tumor marker PSA checked, came back 1420, case was discussed with hospitalist and prostate biopsy ER bone biopsy was recommended, patient was scheduled for bone biopsy as outpatient. Patient denies any hemoptysis or hematemesis, denies any melena or hematochezia, denies any jaundice, denies any headaches blurred vision double vision, denies any hematuria or dysuria, complaining of weight loss most likely due to extensive diuresis Past Medical History: Mr. Marie's medical history consists of anxiety, arteriosclerosis of coronary artery, atrial fibrillation, cardiomyopathy, carotid stenosis, chronic diarrhea, chronic kidney disease, dyslipidemia, dysphagia, gastroesophageal reflux disease, heart failure, and myocardial infarction. Past Surgical History: Mr. Dimass surgical/procedural history consists of angioplasty, eustachian tube placement, hernia repair, pacemaker placement, vasectomy, covid vaccine #2 in 2020, and covid vaccine #1 in 2020. Medications: Aspirin 1 Tablet (of 81 mg) Tablet, chewable Oral daily, Bumetanide 1 Tablet (of 1 mg) Oral daily, Decadron 1 Tablet (of 4 mg) Oral daily, Entresto 0.5 Tablet (of 97-103 mg) Oral daily, HYDROcodone-Acetaminophen 1 Tablet (of 5-325 mg) Oral q 6 hours PRN, K-Tab 2 Tablet (of 20 meq) Tablet, controlled release Oral daily, metOLazone 1 Tablet (of 5 mg) Oral on M,W,F, Restoril 1 Capsule (of 15 mg) Oral daily, Simvastatin 1 Tablet (of 40 mg) Oral daily, Tamsulosin HCl 1 Capsule (of 0.4 mg) Oral daily Allergies: amLODIPine Besylate, Apixaban, Benazepril HCl, Candesartan Cilexetil, Carvedilol, hydroCHLOROthiazide, Irbesartan, Lisinopril, Losartan Potassium, Lovastatin, Metoprolol Tartrate, Nebivolol HCl, Olmesartan Medoxomil, Rivaroxaban, Rosuvastatin Calcium, Spironolactone, Valsartan, and Warfarin Sodium. Social History: Mr. Marie is . Mr. Marie no longer smokes. He has no history of drinking. Family History: There is no documented family history. Review Of Symptoms: Review of Systems is not available for this patient. Vital Signs: Performed on November 27, 2020 13:32: 8, 10, 0.00, 0.00 sq.m, 98 %, 91 /min, 18 /min, 84/55 mm(hg) (LOW), 98.5 F, and 152.4 lbs (HIGH). Performance Status: 2 - Ambulatory/capable of all self-care, unable to perform any work activities. Up and about more than 50% of waking hours. (ECOG) Physical Examination: ENMT - No mouth sores, no thrush, no jaundice, Respiratory - Poor air entry, bibasilar rales, Cardiovascular - Irregular rate and rhythm, Abdomen - Soft, distended, bowel sounds present, nontender, Extremities - 3+ edema bilaterally. Lab/Imaging: Most recent lab results are not available for this patient. Impression: Extensive metastatic disease to the bone including spine, and pelvic lymphadenopathy as per CT scan of abdomen pelvis done on November 21, 2020 which showed 2.1 x 2 cm left pelvic sidewall lymph node, 1.6 x 1.6 left external iliac lymph node, 3.1 x 2.6 cm lymph node near the confluence of common iliac veins., Prostate is moderately enlarged and lobulated, hepatic cirrhosis, moderate cardiomegaly , bone scan done on November 21, 2020 shows diffuse bone mets PSA was 1420 History of [place], cardiomyopathy, ejection fraction 15%, Status post pacemaker Hepatic cirrhosis Chronic renal disease Off and on dysphagia Atrial fibrillation, on anticoagulation History of thrombocytopenia. Plan: Discussed with patient and family including his and son regarding patient's disease status and treatment options, based on patient's comorbid condition including severe congestive heart failure ejection fraction around 15%, hepatic cirrhosis, history of coronary artery disease/[place] status post pacemaker, atrial fibrillation on anticoagulation, patient is not a candidate for systemic chemotherapy for metastatic prostate cancer, extensive diffuse bone mets along with pelvic lymphadenopathy, other option would be ADT with Zoladex/Casodex and radiation therapy to the spine for palliative purpose, , Considering his poor performance status due to extensive comorbid conditions, role of hospice care was also discussed but family and patient wants to try some treatment before they consider hospice. case was discussed with Dr. Cuadra, radiation oncologist who would prefer biopsy before radiation to his spine is considered. Patient was supposed to get CT-guided biopsy of pelvic bone this week, case was discussed with Dr. Velasquez, who said he will discuss with Dr. Loomis and most likely biopsy will be done on or Thursday. Clinically, with PSA more than 1400, extensive osteoblastic bone lesions, pelvic lymphadenopathy diffuse large prostate, which is lobulated, patient has metastatic prostate cancer, thus we will start him on Casodex 50 mg p.o. daily and also consider Zoladex 10.8 mg every 3 months now, all the side effect possible benefits associated with ADT including but not limited to, generalized weakness and fatigue, mood swings, decreased libido, muscle wasting, gynecomastia, fluid retention, generalized weakness and fatigue, were mentioned further teaching will done by chemotherapy nurse. We will obtain approval from his insurance prior to the treatment. And will follow up with his CT-guided pelvic bone biopsy. Patient return to clinic in 2 weeks with CBC CMP PSA and testosterone level in the meantime he will continue with pain medication as far as constipation is concerned patient will take milk of magnesia/prune juice for chronic constipation. Signed By: Guicho Gross M.D. <<Signature on File>>
== END 2020-11-27 11:56 | disposition home or self-care (01) ==
LOC: ONCMED 11:58
PROVIDERS: PCP Internal Medicine; Visit Provider Internal Medicine Hematology & Oncology
DX: C61 Malignant neoplasm of prostate (principal); C79.51 Secondary malignant neoplasm of bone; C77.8 Secondary and unspecified malignant neoplasm of lymph nodes of multiple regions; R97.20 Elevated prostate specific antigen [PSA]; I25.2 Old myocardial infarction; I42.9 Cardiomyopathy, unspecified; Z95.0 Presence of cardiac pacemaker; K74.60 Unspecified cirrhosis of liver; N17.9 Acute kidney failure, unspecified; N18.9 Chronic kidney disease, unspecified; R13.10 Dysphagia, unspecified; I48.20 Chronic atrial fibrillation, unspecified; Z79.01 Long term (current) use of anticoagulants; D69.6 Thrombocytopenia, unspecified; Z79.899 Other long term (current) drug therapy
CPT/HCPCS: 99204

== ENCOUNTER 2020-12-06 11:46 | Day surgery (SDC) | payer MEDICARE, SELFPAY ==
[2020-12-06] VITALS (12 sets, daily range): BP systolic 86–107; BP diastolic 56–64; PULSE 89–92; RESP 12–18; TEMP 36.3–36.8; O2SAT 97–100
--- NOTE | 2020-12-06 | CT_ITS ---
WS: [id number] PELVIC BONE BIOPSY CLINICAL INFORMATION: PELVIC BONE BIOPSY COMPARISON: None. DLP: 525.26 mGy.cm TECHNIQUE: The procedure including risk, benefits, and complications were discussed with the patient who agreed to proceed. Using sterile technique, the patient was prepped and draped in the usual steri le fashion. Timeout was performed. Patient was positioned prone and CT images were obtained through t he pelvis. Bony lesion right ilium was selected.After 1% lidocaine using fluoroscopic guidance, osteo phyte coaxial biopsy device was advanced into the right ilial lesion. Single bone core was obtained. No immediate complications. CT/CT biopsy bone deep IMPRESSION: 1. Uncomplicated CT-guided right ilium bone biopsy. 2. Patient was discharged in stable condition. 3. No immediate complications. 4. Pathology is pending.
--- NOTE | 2020-12-06 12:05 | CT_ITS ---
WS: [id number] PELVIC BONE BIOPSY CLINICAL INFORMATION: PELVIC BONE BIOPSY COMPARISON: None. DLP: 525.26 mGy.cm TECHNIQUE: The procedure including risk, benefits, and complications were discussed with the patient who agreed to proceed. Using sterile technique, the patient was prepped and draped in the usual steri le fashion. Timeout was performed. Patient was positioned prone and CT images were obtained through t he pelvis. Bony lesion right ilium was selected.After 1% lidocaine using fluoroscopic guidance, osteo phyte coaxial biopsy device was advanced into the right ilial lesion. Single bone core was obtained. No immediate complications.
[2020-12-06] MEDS: sodium chloride 0.9% 1,000 ML 30 ML IV (12:32)
[2020-12-06 12:54] LABS: INR 1.06 (0.8-1.2)
[2020-12-06] MEDS: midazolam 1 mg/mL INJ 2 mL IVP ×2 (14:07→14:16)
[2020-12-06] MEDS: fentaNYL 50 mcg/mL INJ 2mL 25 MCG IVP ×2 (14:07→14:16)
== END 2020-12-06 15:31 | disposition home or self-care (01) ==
PROVIDERS: Radiology Neuroradiology; PCP Internal Medicine; Visit Provider Internal Medicine Hematology & Oncology
DX: C79.51 Secondary malignant neoplasm of bone (principal)
CPT/HCPCS: 20225; 77012; 85610; 88307; 96361; 96374; 96375; J2250; J3010; J7030

== ENCOUNTER 2020-12-19 07:54 | Outpatient (CLI) | payer MEDICARE, SELFPAY ==
[2020-12-19 14:33] LABS: Eosinophils # 0.2 10^3/uL (0.0-0.8); Eosinophils % 4.8 %; Hematocrit 37.1 % (42.0-52.0); Hemoglobin 11.9 g/dL (11.7-16.6); Lymphocytes % 24.4 %; Mean Corpuscular HGB Conc 32.1 g/dL (30.0-36.0); Mean Corpuscular Hemoglobin 28.9 pg (28.0-34.0); Monocytes # 0.4 10^3/uL (0.2-0.9); Monocytes % 11.2 %; Neutrophils # 2.27 10^3/uL (1.8-7.7); Neutrophils % 57.6 %; Nucleated Red Blood Cells % 0 %; Platelet Count 154 10^3/cmm (130-400); Red Blood Count 4.12 10^6/uL (4.1-5.3); Red Cell Distribution Width 16.4 % (12.1-15.1); White Blood Count 3.9 10^3/uL (4.0-10.0)
[2020-12-19 15:01] LABS: Testosterone Total 504.6 ng/dL (193-740)
[2020-12-19 15:13] LABS: Alanine Aminotransferase 12 U/L (0-41); Albumin Level 2.8 g/dL (3.5-5.2); Alkaline Phosphatase 627 IU/L (40-130); Aspartate Amino Transferase 20 U/L (0-40); Blood Urea Nitrogen 25 mg/dL (8-23); Calcium 7.9 mg/dL (8.5-10.5); Carbon Dioxide 22 mmol/L (22-29); Chloride 91 mmol/L (98-107); Globulin 3.8 g/dL (1.3-4.6); Glucose 114 mg/dL (65-115); Osmolality Calculated 269 mOsm/kg (285-295); Sodium 127 mmol/L (136-145); Total Bilirubin 0.7 mg/dL (0.15-1.2); Total Protein 6.6 g/dL (6.6-8.7)
[2020-12-19 15:19] LABS: Anion Gap 17.8 (5-19); Potassium 3.8 mmol/L (3.5-5.1)
[2020-12-19] MEDS: lidocaine 1% INJ 20 mL INJECTION (16:27)
--- NOTE | 2020-12-19 16:41 | ONC FU_ITS ---
Dr. Gross follow up note Patient: Kameron Holt Unit #: [id number]: 1945 Dicatated By: Guicho Gross M.D.Date of Visit:Dec 19, 2020 Onc Med Follow-up/Prog Note History of Present Illness: Mr. Kameron holt, is a 75-year-old gentleman with a complex medical history including atrial fibrillation, cardiomyopathy, with 15% ejection fraction, systolic and diastolic heart failure, chronic renal disease, hypertension, history of myocardial infarction, status post cardiac pacemaker, who was admitted to hospital on November 21, 2020 with congestive heart failure and progressive weakness over the period of 1 week, as per patient he could not move on his own, it was even hard for him to get up from the chair, also complaining of progressive back pain mostly in the middle and lower part but denies any urine or stool incontinence but constipation due to pain medication, denies any focal weakness in lower extremities, denies any numbness in the lower extremities. Patient had severe lower extremity edema, which is improving with diuresis., Because of back pain he underwent CT scan of abdomen pelvis on November 21, 2020 which showed 2.1 x 2 cm left pelvic sidewall lymphadenopathy, 1.6 x 1.6 cm left external iliac lymph node, 3.1 x 2.6 cm lymph node near confluence of common iliac veins. And prostate is moderately enlarged and lobulated., Hepatic cirrhosis, tiny amount of ascites, moderate cardiomegaly, small bilateral pleural effusion, umbilical hernia containing nonobstructed loop of bowel, and CT scan of spine done on November 21, 2020 showed multiple lytic and blastic lesions involving L5 vertebral body. Multiple lytic lesion present in the trabecular bone throughout the lumbar spine., Diffuse metastatic bone disease multilevel degenerative disease disc and joint disease most pronounced in L4-L5. CT thoracic spine showed mild pathological fracture at T11, diffuse lytic and sclerotic lesions of multiple vertebral body consistent with metastatic disease, no bony foraminal and canal stenosis. Multiple vertebral bodies are involved enough to be worrisome for development of pathological fracture. His lab work-up done on November 25, 2020 showed white blood count 8.3 hemoglobin 13.8 hematocrit 43.1 platelets 151,000 CMP within normal limits including calcium 7.7 creatinine 1.1, bone scan done on November 21, 2020 shows diffuse osteoblastic metastatic bone disease, likely prostate cancer Serum protein electrophoresis done on November 21, 2020 showed no monoclonal gammopathy., Tumor marker PSA checked, came back 1420, case was discussed with hospitalist and prostate biopsy ER bone biopsy was recommended, Which was done on December 06, 2020 and it showed spiculated bone fragment with trilineage hematopoiesis which was stressed to chronic osteomyelitis. No malignancy identified, case was discussed with pathology further immunohistochemistry were ordered and pending. Patient started taking Casodex 50 mg p.o. daily, 10 days prior to Zoladex which was given on December 19, 2020 along with monthly Xgeva Came for follow-up, denies any specific complaints except generalized weakness and fatigue, denies any lower back pain or back pain or pelvic pain. Denies any fever chills denies any nausea or vomiting denies any hematuria or dysuria, appetite is improving, tolerating Casodex 50 mg p.o. daily well, now being started on 3 monthly Zoladex along with monthly Xgeva. Patient recently underwent CT-guided right pelvic ilium bone biopsy Medications: Aspirin 1 Tablet (of 81 mg) Tablet, chewable Oral daily, Bumetanide 1 Tablet (of 1 mg) Oral daily, Decadron 1 Tablet (of 4 mg) Oral daily, Entresto 0.5 Tablet (of 97-103 mg) Oral daily, HYDROcodone-Acetaminophen 1 Tablet (of 5-325 mg) Oral q 6 hours PRN, K-Tab 2 Tablet (of 20 meq) Tablet, controlled release Oral daily, metOLazone 1 Tablet (of 5 mg) Oral on M,W,F, Restoril 1 Capsule (of 15 mg) Oral daily, Simvastatin 1 Tablet (of 40 mg) Oral daily, Tamsulosin HCl 1 Capsule (of 0.4 mg) Oral daily Allergies: amLODIPine Besylate, Apixaban, Benazepril HCl, Candesartan Cilexetil, Carvedilol, hydroCHLOROthiazide, Irbesartan, Lisinopril, Losartan Potassium, Lovastatin, Metoprolol Tartrate, Nebivolol HCl, Olmesartan Medoxomil, Rivaroxaban, Rosuvastatin Calcium, Spironolactone, Valsartan, and Warfarin Sodium. Review of Systems: Review of Systems is not available for this patient. Vital Signs: Performed on Dec 19, 2020 15:25 Temperature - 98.8 F Pulse - 90 /min Respiration - 18 /min BP - 89/57 mm(hg) (LOW) O2 Sat - 98 % Pain - 0 Fatigue - 6 Performance Status: 2 - Ambulatory/capable of all self-care, unable to perform any work activities. Up and about more than 50% of waking hours. (ECOG) Physical Examination: ENMT - No mouth sores, no thrush, no jaundice, Respiratory - Lungs are clear to auscultation, Cardiovascular - Regular rate and rhythm of heart, Abdomen - Soft, bowel sounds present, Extremities - 1+ edema bilaterally. Lab/Imaging: Most recent lab results are not available for this patient. Impression: Extensive metastatic disease to the bone including spine, and pelvic lymphadenopathy as per CT scan of abdomen pelvis done on November 21, 2020 which showed 2.1 x 2 cm left pelvic sidewall lymph node, 1.6 x 1.6 left external iliac lymph node, 3.1 x 2.6 cm lymph node near the confluence of common iliac veins., Prostate is moderately enlarged and lobulated, hepatic cirrhosis, moderate cardiomegaly , bone scan done on November 21, 2020 shows diffuse bone mets PSA was 1420, Repeat PSA on December 19, 2020 was 3726, Started on Casodex 50 mg p.o. daily 10 days prior to Zoladex which was started on December 19, 2020 along with monthly Xgeva History of [place], cardiomyopathy, ejection fraction 15%, Status post pacemaker Hepatic cirrhosis Chronic renal disease Off and on dysphagia Atrial fibrillation, on anticoagulation History of thrombocytopenia. Plan: Discussed with patient regarding his labs white blood count 3900 hemoglobin 11.9 hematocrit 37.1 platelets 154,000 CMP within normal limit except sodium 127 and alk phos 627 and PSA 3726, Testosterone 504.6 Clinically, patient is doing reasonably well with no new signs symptoms, tolerating oral Casodex well, today we will start him on 3 monthly Zoladex 10.8 mg along with monthly Xgeva to prevent skeletal related complication. Patient return to clinic in 1 month with CBC CMP, PSA and testosterone level Patient recently underwent a right pelvic bone CT-guided biopsy and as per pathology he did not show any malignancy but finding suggestive of chronic osteomyelitis, case was discussed with pathology and immunohistochemistry is pending, will follow and if it is negative, may consider repeating biopsy but patient is reluctant. Hyponatremia, patient was advised to reduce free water intake, will monitor Signed By: Guicho Gross M.D. <<Signature on File>>
[2020-12-19] MEDS: goserelin acetate 10.8 mg Implant SUBCUT (16:44)
== END 2020-12-19 07:55 | disposition home or self-care (01) ==
PROVIDERS: PCP Internal Medicine; Visit Provider Internal Medicine Hematology & Oncology
DX: C61 Malignant neoplasm of prostate (principal); C79.51 Secondary malignant neoplasm of bone; K74.60 Unspecified cirrhosis of liver; I48.91 Unspecified atrial fibrillation; Z79.01 Long term (current) use of anticoagulants; I25.2 Old myocardial infarction; I42.9 Cardiomyopathy, unspecified; Z79.899 Other long term (current) drug therapy
CPT/HCPCS: 36415; 80053; 84153; 84403; 85025; 96372; 96402; 99214; J9202

== ENCOUNTER 2021-01-04 13:22 | Emergency (ER) | payer MEDICARE, SELFPAY ==
[2021-01-04 13:41] VITALS: BP 104/62; PULSE 88; RESP 18; TEMP 37.2; O2SAT 97; BMI 21.7
--- NOTE | 2021-01-04 13:49 | CT_ITS ---
WS: [id number] Exam: CT head wo con* [id number] Date/Time of Exam: 01/04/2021 2:58 PM Reason For Exam: vision changes DLP: 846.[address] scans at [facility] use at least one of these dose optimization techniques: automat ed exposure control; mA and/or kV adjustment per patient size (includes targeted exams where dose is matched to clinical indication); or iterative reconstruction. Comparison 01/02/2020. No sign of space-occupying mass or acute intracranial bleed. Diffuse atrophy with volume loss. The ve ntricles and basal cisterns are unremarkable in appearance. No extra-axial fluid collections are seen . Microvascular ischemic changes in the cerebral white matter substance. The skull is intact. Intracr anial vascular calcifications noted. The mastoids are clear. Facial sinuses are unremarkable as visua lized. CT/CT head wo con* [id number] IMPRESSION: 1. No acute intracranial process. 2. Diffuse cerebral atrophy and microvascular ischemic changes.
--- NOTE | 2021-01-04 13:50 | ECG_ITS ---
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 Measurements Intervals [place] Rate: 90 P: MO: QRS: 160 QRSD: 159 T: -30 QT: 417 QTc: 511 Interpretive Statements ELECTRONIC VENTRICULAR PACEMAKER ABNORMAL RHYTHM ECG Compared to ECG 11/21/2020 08:23:07 No significant changes Electronically Signed On 01-04-2021 22:23:32 CDT by Qi Velásquez M.D. [id number]
[2021-01-04 14:02] VITALS: BP 108/66; PULSE 88; RESP 16; O2SAT 98
--- NOTE | 2021-01-04 14:04 | W.ED.GENADLT ---
HPI - General Adult General: Chief complaint: General Medical Stated complaint: BLURRY VISION/SENT BY DR HOYOS Time Seen by Provider: 01/04/21 13:41 History of Present Illness: HPI narrative: 75-year-old male presents emergency room at the direction of his oncologist. Patient has a history of prostate cancer with metastasis. He recently was started on Casodex. After he takes it he gets lightheaded and dizzy. Gets blurred vision along with it. He denies any weakness in the hands or feet he does find a little difficult to walk when he gets the dizzy episodes it resolves after a while he states it is consistently after he takes the Casodex. No nausea or vomiting. He is not on any anticoagulants. Onset (ago): minute(s) Relieving factors: none Exacerbating factors: none Associated symptoms: Deny chest pain, confusion, cough, diaphoresis, decreased appetite, dyspnea, fevers/chills, headache(s), malaise, nausea, rash, palpitations, seizures, short of breath, syncope, vomiting or weakness Treatments prior to arrival: none Review of Systems Const: Denies: malaise or diaphoresis ENMT: Denies: throat pain, ear or mastoid pain, nasal discharge or nasal congestion Card: Denies: chest pain, palpitations or syncope Resp: Denies: dyspnea GI: Denies: nausea or vomiting : Denies: flank pain, dysuria, urinary frequency or urinary urgency Skin/Breast: Denies: rash Neuro: Denies: headache(s) or confusion PFSH ED PFSH: Medical History Abdominal bloating Anxiety Arteriosclerosis of coronary artery Ascites Atrial fibrillation with RVR Cardiomyopathy Carotid stenosis, bilateral Chronic combined systolic and diastolic heart failure Chronic diarrhea Chronic eustachian tube dysfunction Chronic insomnia Chronic neck pain CKD (chronic kidney disease) Dyslipidemia Dysphagia Gastritis GERD (gastroesophageal reflux disease) H/O: HTN (hypertension) Heel spur Myocardial infarction of anterior wall Presence of cardiac pacemaker Thrombocytopenia Surgical History H/O colonoscopy with polypectomy History of placement of ear tubes S/P angioplasty with stent S/P AV (atrioventricular) dolores ablation S/P hernia repair S/P laparoscopic hernia repair OF A VENTRAL HERNIA WITH ATRIUM MESH 03/26/2016 S/P vasectomy Family History Other Heart disease Hypertension Social History Smoking and tobacco status: former smoker Alcohol intake: never Lives independently: Yes Household members: spouse Housing: House Marital status: Current occupational status: retired History of recent travel: No Physical Exam Const: COMMON NORMALS: no acute distress GENERAL APPEARANCE: cooperative and comfortable ORIENTATION/CONSCIOUSNESS: Yes awake, Yes oriented to person, Yes oriented to place and Yes oriented to time HENMT: COMMON NORMALS: normocephalic, atraumatic and hearing grossly normal bilaterally HEAD & SCALP: normocephalic and atraumatic Neck/C-Spine: COMMON NORMALS: no JVD Resp: COMMON NORMALS: normal respiratory effort, No retractions, No use of accessory muscles and clear to auscultation bilaterally AUSCULTATION: clear to auscultation bilaterally Cardio: COMMON NORMALS: no JVD, regular rate, regular rhythm and No murmurs present (Cardio) RATE: regular rate RHYTHM: regular rhythm GI: COMMON NORMALS: Soft to palpation and No hepatosplenomegaly present AUSCULTATION: Yes normoactive bowel sounds PALPATION: Yes Soft to palpation, No Tenderness to palpation present (GI), No Guarding due to palpation present (GI) and Yes No hepatosplenomegaly present Extremity: COMMON NORMALS: normal to inspection, capillary refill normal, no clubbing, cyanosis or edema, no calf tenderness and no pedal edema Neuro: SENSORIUM/ORIENTATION: Yes oriented to person, Yes oriented to place and Yes oriented to time Skin: COMMON NORMALS: no rashes or lesions noted GENERAL SKIN EXAM: no rashes or lesions noted Course Vital Signs: Vital signs: Vital Signs Temperature 98.9 F 01/04/21 13:41 Pulse Rate 90 01/04/21 16:34 Respiratory Rate 16 01/04/21 16:34 Blood Pressure 91/61 01/04/21 16:34 Pulse Oximetry 99 01/04/21 16:34 MDM - General Adult MDM Narrative: Medical decision making narrative: Imaging and labs with the patient. Recommend that he stopped the bicalutamide and follow-up with his oncologist next week. Return if his further problems. Lab Data: Labs: Lab Results 01/04/21 01/04/21 Range/Units 14:10 14:10 WBC 4.7 (4.0-10.0) 10^3/ uL RBC 3.61 L (4.1-5.3) 10^6/u L Hgb 10.7 L (11.7-16.6) g/dL Hct 34.3 L (42.0-52.0) % MCV 95.0 H (80-94) fL MCH 29.6 (28.0-34.0) pg MCHC 31.2 (30.0-36.0) g/dL RDW 18.0 H (12.1-15.1) % Plt Count 106 L (130-400) 10^3/c mm MPV 10.6 H (7.4-10.4) fL Neut % (Auto) 51.2 % Lymph % (Auto) 28.5 % [place] % (Auto) 11.8 % Eos % (Auto) 5.1 % Baso % (Auto) 1.7 % Neut # (Auto) 2.39 (1.8-7.7) 10^3/u L Lymph # (Auto) 1.3 (0.8-4.8) 10^3/u L [place] # (Auto) 0.6 (0.2-0.9) 10^3/u L Eos # (Auto) 0.2 (0.0-0.8) 10^3/u L Baso # (Auto) 0.1 (0.0-0.1) 10^3/u L Nucleated RBC % (a uto) 0 % Nucleated RBCs # 0.0 /100WBC Sodium 138 (136-145) mmol/L Potassium 3.9 (3.5-5.1) mmol/L Chloride 104 (98-107) mmol/L Carbon Dioxide 24 (22-29) mmol/L Anion Gap 13.9 (5-19) BUN 15 (8-23) mg/dL Creatinine 0.9 (0.7-1.2) mg/dL GFR Calculation Not Reportable Glucose 124 H (65-115) mg/dL Calculated Osmolal ity 288 (285-295) mOsm/k g Calcium 8.2 L (8.5-10.5) mg/dL Total Bilirubin 0.5 (0.15-1.2) mg/dL AST 23 (0-40) U/L ALT 15 (0-41) U/L Alkaline Phosphata se 548 H (40-130) IU/L Total Protein 6.3 L (6.6-8.7) g/dL Albumin 3.0 L (3.5-5.2) g/dL Globulin 3.3 (1.3-4.6) g/dL Discharge Plan Discharge Patient Disposition: Home Clinical Impression: Medication side effect, Prostate cancer metastatic to multiple sites Condition: Stable Prescriptions: Held bicalutamide 50 mg tablet 50 mg PO DAILY RF: 0 Hold Instructions: Resume on 01/07/21. No Action temazepam 15 mg capsule 15 mg PO BEDTIME@2200 RF: 0 tamsulosin 0.4 mg capsule 0.4 mg PO BEDTIME@2200 RF: 0 Entresto 24-26 mg tablet 0.5 tab PO DAILY RF: 0 Aspir-81 81 mg PO DAILY RF: 0 hydrocodone-acetaminophen 5-325 mg Tablet 1 tab PO Q6H PRN (Reason: Pain) RF: 0 Discharge Orders: Discharge ED (Routine); Ordered 01/04/21 Ordered By: Troy Busch Referrals: Wolf Pandey MD [Primary Care Provider] - Discharge Diet: Usual diet Discharge Activity: Increase activity as tolerated Patient Instructions: Opioid Safety Activity Restrictions/Additional Instructions: Follow-up with your oncologist on Thursday, February 06. Hold the bicalutamide. Check with oncology if they wish for you to continue it on Thursday or if you have further problems. Coding Level of Care Code ED Sales Account Associate for Amy Fwd Exam Comprehensive
[2021-01-04 14:22] LABS: Basophils # 0.1 10^3/uL (0.0-0.1); Basophils % 1.7 %; Eosinophils # 0.2 10^3/uL (0.0-0.8); Eosinophils % 5.1 %; Hematocrit 34.3 % (42.0-52.0); Hemoglobin 10.7 g/dL (11.7-16.6); Lymphocytes # 1.3 10^3/uL (0.8-4.8); Lymphocytes % 28.5 %; Mean Corpuscular HGB Conc 31.2 g/dL (30.0-36.0); Mean Corpuscular Hemoglobin 29.6 pg (28.0-34.0); Mean Platelet Volume 10.6 fL (7.4-10.4); Monocytes # 0.6 10^3/uL (0.2-0.9); Monocytes % 11.8 %; Neutrophils # 2.39 10^3/uL (1.8-7.7); Neutrophils % 51.2 %; Nucleated Red Blood Cells % 0 %; Platelet Count 106 10^3/cmm (130-400); Red Blood Count 3.61 10^6/uL (4.1-5.3); White Blood Count 4.7 10^3/uL (4.0-10.0)
[2021-01-04 14:43] LABS: Alanine Aminotransferase 15 U/L (0-41); Alkaline Phosphatase 548 IU/L (40-130); Anion Gap 13.9 (5-19); Aspartate Amino Transferase 23 U/L (0-40); Blood Urea Nitrogen 15 mg/dL (8-23); Calcium 8.2 mg/dL (8.5-10.5); Carbon Dioxide 24 mmol/L (22-29); Chloride 104 mmol/L (98-107); Globulin 3.3 g/dL (1.3-4.6); Glucose 124 mg/dL (65-115); Osmolality Calculated 288 mOsm/kg (285-295); Potassium 3.9 mmol/L (3.5-5.1); Sodium 138 mmol/L (136-145); Total Bilirubin 0.5 mg/dL (0.15-1.2); Total Protein 6.3 g/dL (6.6-8.7)
[2021-01-04 16:34] VITALS: BP 91/61; PULSE 90; RESP 16; O2SAT 99
== END 2021-01-04 16:36 | disposition home or self-care (01) ==
PROVIDERS: Emergency Provider Family Medicine; PCP Internal Medicine
DX: T88.7XXA Unspecified adverse effect of drug or medicament, initial encounter (principal); T50.905A Adverse effect of unspecified drugs, medicaments and biological substances, initial encounter; C61 Malignant neoplasm of prostate; C79.9 Secondary malignant neoplasm of unspecified site; Z79.82 Long term (current) use of aspirin; E78.5 Hyperlipidemia, unspecified; I10 Essential (primary) hypertension; I25.2 Old myocardial infarction; Z95.0 Presence of cardiac pacemaker; Z87.891 Personal history of nicotine dependence
CPT/HCPCS: 70450; 80053; 85025; 93005; 99283

== ENCOUNTER 2021-01-23 11:43 | Outpatient (CLI) | payer MEDICARE, SELFPAY ==
[2021-01-23 12:18] LABS: Basophils # 0.1 10^3/uL (0.0-0.1); Basophils % 1.2 %; Eosinophils # 0.2 10^3/uL (0.0-0.8); Hematocrit 33.2 % (42.0-52.0); Hemoglobin 10.2 g/dL (11.7-16.6); Lymphocytes # 1.2 10^3/uL (0.8-4.8); Lymphocytes % 30.4 %; Mean Corpuscular HGB Conc 30.7 g/dL (30.0-36.0); Mean Corpuscular Volume 97.6 fL (80-94); Monocytes # 0.5 10^3/uL (0.2-0.9); Monocytes % 11.9 %; Neutrophils # 2.05 10^3/uL (1.8-7.7); Neutrophils % 50.8 %; Nucleated Red Blood Cells % 0 %; Platelet Count 107 10^3/cmm (130-400); Red Cell Distribution Width 18.1 % (12.1-15.1)
[2021-01-23 12:42] LABS: Testosterone Total 2.5 ng/dL (193-740)
[2021-01-23 12:55] LABS: Alanine Aminotransferase 11 U/L (0-41); Albumin Level 3.4 g/dL (3.5-5.2); Alkaline Phosphatase 468 IU/L (40-130); Anion Gap 11.1 (5-19); Aspartate Amino Transferase 20 U/L (0-40); Blood Urea Nitrogen 19 mg/dL (8-23); Calcium 8.6 mg/dL (8.5-10.5); Carbon Dioxide 26 mmol/L (22-29); Chloride 102 mmol/L (98-107); Glucose 121 mg/dL (65-115); Osmolality Calculated 284 mOsm/kg (285-295); Potassium 4.1 mmol/L (3.5-5.1); Sodium 135 mmol/L (136-145); Total Bilirubin 0.7 mg/dL (0.15-1.2); Total Protein 6.4 g/dL (6.6-8.7)
[2021-01-23] MEDS: denosumab 120 mg SDV SUBCUT (14:20)
--- NOTE | 2021-01-23 16:56 | ONC FU_ITS ---
Dr. Gross follow up note Patient: Kameron Holt Unit #: [id number]: 1945 Dicatated By: Guicho Gross M.D.Date of Visit:Jan 23, 2021 Onc Med Follow-up/Prog Note History of Present Illness: Mr. Kameron holt, is a 75-year-old gentleman with a complex medical history including atrial fibrillation, cardiomyopathy, with 15% ejection fraction, systolic and diastolic heart failure, chronic renal disease, hypertension, history of myocardial infarction, status post cardiac pacemaker, who was admitted to hospital on November 21, 2020 with congestive heart failure and progressive weakness over the period of 1 week, as per patient he could not move on his own, it was even hard for him to get up from the chair, also complaining of progressive back pain mostly in the middle and lower part but denies any urine or stool incontinence but constipation due to pain medication, denies any focal weakness in lower extremities, denies any numbness in the lower extremities. Patient had severe lower extremity edema, which is improving with diuresis., Because of back pain he underwent CT scan of abdomen pelvis on November 21, 2020 which showed 2.1 x 2 cm left pelvic sidewall lymphadenopathy, 1.6 x 1.6 cm left external iliac lymph node, 3.1 x 2.6 cm lymph node near confluence of common iliac veins. And prostate is moderately enlarged and lobulated., Hepatic cirrhosis, tiny amount of ascites, moderate cardiomegaly, small bilateral pleural effusion, umbilical hernia containing nonobstructed loop of bowel, and CT scan of spine done on November 21, 2020 showed multiple lytic and blastic lesions involving L5 vertebral body. Multiple lytic lesion present in the trabecular bone throughout the lumbar spine., Diffuse metastatic bone disease multilevel degenerative disease disc and joint disease most pronounced in L4-L5. CT thoracic spine showed mild pathological fracture at T11, diffuse lytic and sclerotic lesions of multiple vertebral body consistent with metastatic disease, no bony foraminal and canal stenosis. Multiple vertebral bodies are involved enough to be worrisome for development of pathological fracture. His lab work-up done on November 25, 2020 showed white blood count 8.3 hemoglobin 13.8 hematocrit 43.1 platelets 151,000 CMP within normal limits including calcium 7.7 creatinine 1.1, bone scan done on November 21, 2020 shows diffuse osteoblastic metastatic bone disease, likely prostate cancer Serum protein electrophoresis done on November 21, 2020 showed no monoclonal gammopathy., Tumor marker PSA checked, came back 1420, case was discussed with hospitalist and prostate biopsy ER bone biopsy was recommended, Which was done on December 06, 2020 and it showed spiculated bone fragment with trilineage hematopoiesis which was stressed to chronic osteomyelitis. No malignancy identified, case was discussed with pathology further immunohistochemistry were ordered and pending. Patient started taking Casodex 50 mg p.o. daily, 10 days prior to Zoladex which was given on December 19, 2020 along with monthly Xgeva. Patient discontinue oral Casodex around January 16, 2021 because of feeling lightheaded dizzy, which improved when he discontinue Casodex. And patient decided not to take it but continue with 3 monthly Zoladex Came for follow-up, denies any specific complaint except recently developed questionable mental status changes, dizziness lightheadedness for which she went to [facility] on January 04, 2021, had CT scan of the head done which shows no acute intracranial process. Diffuse cerebral atrophy and microvascular ischemic changes, as per patient he realized the Casodex was causing it so stopped it and then he tried again, symptoms reappeared so last week patient decided to discontinue Casodex on his own because of related side effects otherwise denies any fever chills denies any nausea or vomiting as per patient his hip pain is almost resolved now very active at home and in his garden., Tolerating 3 monthly Zoladex well and now about to start monthly Xgeva too Medications: Aspirin 1 Tablet (of 81 mg) Tablet, chewable Oral daily, Bumetanide 1 Tablet (of 1 mg) Oral daily, Decadron 1 Tablet (of 4 mg) Oral daily, Entresto 0.5 Tablet (of 97-103 mg) Oral daily, HYDROcodone-Acetaminophen 1 Tablet (of 5-325 mg) Oral q 6 hours PRN, K-Tab 2 Tablet (of 20 meq) Tablet, controlled release Oral daily, metOLazone 1 Tablet (of 5 mg) Oral on M,W,F, Restoril 1 Capsule (of 15 mg) Oral daily, Simvastatin 1 Tablet (of 40 mg) Oral daily, Tamsulosin HCl 1 Capsule (of 0.4 mg) Oral daily Allergies: amLODIPine Besylate, Apixaban, Benazepril HCl, Candesartan Cilexetil, Carvedilol, hydroCHLOROthiazide, Irbesartan, Lisinopril, Losartan Potassium, Lovastatin, Metoprolol Tartrate, Nebivolol HCl, Olmesartan Medoxomil, Rivaroxaban, Rosuvastatin Calcium, Spironolactone, Valsartan, and Warfarin Sodium. Review of Systems: Review of Systems is not available for this patient. Vital Signs: Performed on Jan 23, 2021 15:53 Weight - 158 lbs (HIGH) BSA - 0.00 sq.m BMI - 0.00 Temperature - 98.3 F (LOW) Pulse - 91 /min Respiration - 18 /min BP - 96/63 mm(hg) O2 Sat - 98 % Pain - 0 Fatigue - 5 Performance Status: 0 - Fully active, able to carry on all predisease activities without restrictions. (ECOG) Physical Examination: ENMT - No mouth sores, no thrush, no jaundice, Respiratory - Lungs are clear to auscultation, Cardiovascular - Regular rate and rhythm of heart , Abdomen - Soft, bowel sounds present, Extremities - 1+ edema bilaterally. Lab/Imaging: Most recent lab results are not available for this patient. Impression: Extensive metastatic disease to the bone including spine, and pelvic lymphadenopathy as per CT scan of abdomen pelvis done on November 21, 2020 which showed 2.1 x 2 cm left pelvic sidewall lymph node, 1.6 x 1.6 left external iliac lymph node, 3.1 x 2.6 cm lymph node near the confluence of common iliac veins., Prostate is moderately enlarged and lobulated, hepatic cirrhosis, moderate cardiomegaly , bone scan done on November 21, 2020 shows diffuse bone mets PSA was 1420, Repeat PSA on December 19, 2020 was 3700+, Started on Casodex 50 mg p.o. daily 10 days prior to Zoladex which was started on December 19, 2020 along with monthly Xgeva, Discussed Casodex because of related side effect like dizziness lightheadedness which resolved once he stopped taking it On January 16, 2021 History of [place], cardiomyopathy, ejection fraction 15%, Status post pacemaker Hepatic cirrhosis Chronic renal disease Off and on dysphagia Atrial fibrillation, on anticoagulation History of thrombocytopenia. Plan: Discussed with patient regarding his labs white blood count 4 hemoglobin 10.2 hematocrit 33.2 platelets 107,000 CMP within normal limits, PSA 100 compared to 3726 on December 19, 2020 Clinic, patient is doing reasonably well in fact his pelvic pain has resolved overall feeling much better except he had a problem with Casodex, as per patient he was feeling dizzy lightheaded while he was on Casodex so when he discontinued his symptoms resolved and now does not want to take it, last time he took Casodex was around January 16, 2021., He received 3 monthly dose of Zoladex on December 19, 2020 and tolerated well, now here to start Xgeva to prevent skeletal related complication. So, as for prostate cancer is concerned his follow-up PSA shows excellent response as PSA has gone down to 100 from 3726 at the time of diagnosis, will continue with 3 monthly Zoladex along with monthly Xgeva as patient has already discontinue Casodex because of related side effects. He will return to clinic in 1 month with CBC CMP and PSA and for Xgeva dose Signed By: Guicho Gross M.D. <<Signature on File>>
== END 2021-01-23 11:44 | disposition home or self-care (01) ==
PROVIDERS: PCP Internal Medicine; Visit Provider Internal Medicine Hematology & Oncology
DX: Z51.11 Encounter for antineoplastic chemotherapy (principal); C61 Malignant neoplasm of prostate; C79.51 Secondary malignant neoplasm of bone; C77.8 Secondary and unspecified malignant neoplasm of lymph nodes of multiple regions; I25.2 Old myocardial infarction; I42.9 Cardiomyopathy, unspecified; Z95.0 Presence of cardiac pacemaker; K74.60 Unspecified cirrhosis of liver; N18.9 Chronic kidney disease, unspecified; R13.10 Dysphagia, unspecified; I48.91 Unspecified atrial fibrillation; Z79.01 Long term (current) use of anticoagulants; D69.6 Thrombocytopenia, unspecified; Z79.899 Other long term (current) drug therapy; Z92.21 Personal history of antineoplastic chemotherapy
CPT/HCPCS: 36415; 80053; 84153; 84403; 85025; 96372; 99215; J0897

== ENCOUNTER 2021-02-01 10:27 | Outpatient (CLI) | payer MEDICARE, SELFPAY ==
[2021-02-01 11:49] VITALS: BP 96/63; PULSE 90; RESP 20; TEMP 36.2; O2SAT 98
--- NOTE | 2021-02-01 12:14 | PC.NURSE ---
Vitals signs obtained. Dr. Pandey at bedside, abdominal ultrasound revealed insufficient amount of fluid for paracentesis. Pt departed GI Lab @1200
--- NOTE | 2021-02-01 12:30 | US_ITS ---
WS: [id number] Abdominal ultrasound, limited. History: Evaluate for ascites. Comparison: None. All 4 quadrants are imaged by ultrasound to evaluate for ascites. Very small amount of ascites near M orison's pouch and in the midline. US/US abdomen lmt fluid [id number] IMPRESSION: Minimal ascites.
== END 2021-02-01 10:28 | disposition home or self-care (01) ==
PROVIDERS: PCP Internal Medicine; Visit Provider Internal Medicine
DX: R18.8 Other ascites (principal)
CPT/HCPCS: 49083; 76705

== ENCOUNTER → 2021-05-10 11:29 | Outpatient (BNVA) | payer MEDICARE, SELFPAY | PROVIDERS: PCP Internal Medicine; Visit Provider Internal Medicine | DX: E78.5 Hyperlipidemia, unspecified (principal) | CPT/HCPCS: 80048; 83880 ==

== ENCOUNTER → 2021-05-23 09:14 | Outpatient (BNVA) | payer MEDICARE, SELFPAY | PROVIDERS: PCP Internal Medicine; Visit Provider Internal Medicine | DX: I50.9 Heart failure, unspecified (principal); I42.9 Cardiomyopathy, unspecified; N18.9 Chronic kidney disease, unspecified | CPT/HCPCS: 80048; 83880 ==

== ENCOUNTER 2021-06-05 09:03 | Outpatient (CLI) | payer MEDICARE, SELFPAY ==
[2021-06-05 09:37] LABS: Basophils % 1.1 %; Eosinophils # 0.1 10^3/uL (0.0-0.8); Eosinophils % 3.4 %; Hematocrit 38.1 % (42.0-52.0); Hemoglobin 12.1 g/dL (11.7-16.6); Lymphocytes # 1.3 10^3/uL (0.8-4.8); Mean Corpuscular HGB Conc 31.8 g/dL (30.0-36.0); Mean Corpuscular Volume 94.5 fl (80-94); Mean Platelet Volume 9.9 fL (7.4-10.4); Monocytes # 0.5 10^3/uL (0.2-0.9); Monocytes % 14.7 %; Neutrophils # 1.57 10^3/uL (1.8-7.7); Neutrophils % 44.5 %; Nucleated Red Blood Cells % 0 %; Platelet Count 119 10^3/cmm (130-400); Red Blood Count 4.03 10^6/uL (4.1-5.3); White Blood Count 3.5 10^3/uL (4.0-10.0)
[2021-06-05 10:31] LABS: Alanine Aminotransferase 19 U/L (0-41); Albumin Level 3.2 g/dL (3.5-5.2); Alkaline Phosphatase 311 IU/L (40-130); Anion Gap 12.4 (5-19); Aspartate Amino Transferase 37 U/L (0-40); Blood Urea Nitrogen 33 mg/dL (8-23); Calcium 8.2 mg/dL (8.5-10.5); Carbon Dioxide 29 mmol/L (22-29); Chloride 99 mmol/L (98-107); Globulin 3.4 g/dL (1.3-4.6); Glucose 61 mg/dL (65-115); Osmolality Calculated 289 mOsm/kg (285-295); Potassium 3.4 mmol/L (3.5-5.1); Sodium 137 mmol/L (136-145); Total Bilirubin 0.5 mg/dL (0.15-1.2); Total Protein 6.6 g/dL (6.6-8.7)
[2021-06-05] MEDS: lidocaine 1% INJ 20 mL INJECTION (12:06)
[2021-06-05] MEDS: goserelin acetate 10.8 mg Implant SUBCUT (12:35)
[2021-06-05] MEDS: denosumab 120 mg SDV SUBCUT (12:36)
--- NOTE | 2021-06-06 16:21 | ONC FU_ITS ---
Dr. Gross follow up note Patient: Kameron Holt Unit #: [id number]: 1945 Dicatated By: Guicho Gross M.D.Date of Visit:Jun 05, 2021 Onc Med Follow-up/Prog Note History of Present Illness: Mr. Kameron ohlt, is a 76-year-old gentleman with a complex medical history including atrial fibrillation, cardiomyopathy, with 15% ejection fraction, systolic and diastolic heart failure, chronic renal disease, hypertension, history of myocardial infarction, status post cardiac pacemaker, who was admitted to hospital on November 21, 2020 with congestive heart failure and progressive weakness over the period of 1 week, as per patient he could not move on his own, it was even hard for him to get up from the chair, also complaining of progressive back pain mostly in the middle and lower part but denies any urine or stool incontinence but constipation due to pain medication, denies any focal weakness in lower extremities, denies any numbness in the lower extremities. Patient had severe lower extremity edema, which is improving with diuresis., Because of back pain he underwent CT scan of abdomen pelvis on November 21, 2020 which showed 2.1 x 2 cm left pelvic sidewall lymphadenopathy, 1.6 x 1.6 cm left external iliac lymph node, 3.1 x 2.6 cm lymph node near confluence of common iliac veins. And prostate is moderately enlarged and lobulated., Hepatic cirrhosis, tiny amount of ascites, moderate cardiomegaly, small bilateral pleural effusion, umbilical hernia containing nonobstructed loop of bowel, and CT scan of spine done on November 21, 2020 showed multiple lytic and blastic lesions involving L5 vertebral body. Multiple lytic lesion present in the trabecular bone throughout the lumbar spine., Diffuse metastatic bone disease multilevel degenerative disease disc and joint disease most pronounced in L4-L5. CT thoracic spine showed mild pathological fracture at T11, diffuse lytic and sclerotic lesions of multiple vertebral body consistent with metastatic disease, no bony foraminal and canal stenosis. Multiple vertebral bodies are involved enough to be worrisome for development of pathological fracture. His lab work-up done on November 25, 2020 showed white blood count 8.3 hemoglobin 13.8 hematocrit 43.1 platelets 151,000 CMP within normal limits including calcium 7.7 creatinine 1.1, bone scan done on November 21, 2020 shows diffuse osteoblastic metastatic bone disease, likely prostate cancer Serum protein electrophoresis done on November 21, 2020 showed no monoclonal gammopathy., Tumor marker PSA checked, came back 1420, case was discussed with hospitalist and prostate biopsy ER bone biopsy was recommended, Which was done on December 06, 2020 and it showed spiculated bone fragment with trilineage hematopoiesis which was stressed to chronic osteomyelitis. No malignancy identified, case was discussed with pathology further immunohistochemistry were ordered and pending. Patient started taking Casodex 50 mg p.o. daily, 10 days prior to Zoladex which was given on December 19, 2020 along with monthly Xgeva. Patient discontinue oral Casodex around January 16, 2021 because of feeling lightheaded dizzy, which improved when he discontinue Casodex. And patient decided not to take it but continue with 3 monthly Zoladex Came for follow-up, denies any specific complaints, no fever chills, no nausea or vomiting, no diarrhea constipation, patient lost follow-up and eventually decided to come back but no new signs symptom, he was tolerating ADT with Zoladex and Xgeva well Medications: Aspirin 1 Tablet (of 81 mg) Tablet, chewable Oral daily, Bumetanide 1 Tablet (of 1 mg) Oral daily, Decadron 1 Tablet (of 4 mg) Oral daily, Entresto 0.5 Tablet (of 97-103 mg) Oral daily, HYDROcodone-Acetaminophen 1 Tablet (of 5-325 mg) Oral q 6 hours PRN, K-Tab 2 Tablet (of 20 meq) Tablet, controlled release Oral daily, metOLazone 1 Tablet (of 5 mg) Oral on M,W,F, Restoril 1 Capsule (of 15 mg) Oral daily, Simvastatin 1 Tablet (of 40 mg) Oral daily, Tamsulosin HCl 1 Capsule (of 0.4 mg) Oral daily Allergies: amLODIPine Besylate, Apixaban, Benazepril HCl, Candesartan Cilexetil, Carvedilol, hydroCHLOROthiazide, Irbesartan, Lisinopril, Losartan Potassium, Lovastatin, Metoprolol Tartrate, Nebivolol HCl, Olmesartan Medoxomil, Rivaroxaban, Rosuvastatin Calcium, Spironolactone, Valsartan, and Warfarin Sodium. Review of Systems: Review of Systems is not available for this patient. Vital Signs: Performed on Jun 05, 2021 11:45 Weight - 167.8 lbs (HIGH) BSA - 0.00 sq.m BMI - 0.00 Temperature - 98.5 F Pulse - 89 /min Respiration - 18 /min BP - 94/65 mm(hg) O2 Sat - 99 % Pain - 2 Fatigue - 8 Performance Status: 1 - No physically strenuous activity, but ambulatory and able to carry out light or sedentary work (e.g. office work, light house work). (ECOG) Physical Examination: ENMT - No mouth sores, no thrush, no jaundice, Respiratory - Lungs are clear to auscultation, Cardiovascular - Regular rate and rhythm of heart, Abdomen - Soft, bowel sounds present, Extremities - No visible edema. Lab/Imaging: Most recent lab results are not available for this patient. Impression: Extensive metastatic disease to the bone including spine, and pelvic lymphadenopathy as per CT scan of abdomen pelvis done on November 21, 2020 which showed 2.1 x 2 cm left pelvic sidewall lymph node, 1.6 x 1.6 left external iliac lymph node, 3.1 x 2.6 cm lymph node near the confluence of common iliac veins., Prostate is moderately enlarged and lobulated, hepatic cirrhosis, moderate cardiomegaly , bone scan done on November 21, 2020 shows diffuse bone mets PSA was 1420, Repeat PSA on December 19, 2020 was 3700+, Started on Casodex 50 mg p.o. daily 10 days prior to Zoladex which was started on December 19, 2020 along with monthly Xgeva, Discussed Casodex because of related side effect like dizziness lightheadedness which resolved once he stopped taking it On January 16, 2021 History of [place], cardiomyopathy, ejection fraction 15%, Status post pacemaker Hepatic cirrhosis Chronic renal disease Off and on dysphagia Atrial fibrillation, on anticoagulation History of thrombocytopenia. Plan: Lab work-up shows white blood count 3.5 hemoglobin 12.1 hematocrit 38.1 platelets 119,000 CMP within normal limit except potassium 3.4 and PSA decreased further to 2.66 compared to 100 on January 23, 2021 and 3726 on December 19, 2020 Clinically, patient is doing well with no new signs symptoms just of recurrence of disease his follow-up labs shows excellent response as PSA has gone down significantly and now 2.66 compared to 100 in January 2021 and more than 3000 in December 2020. At this point we will resume his 3 monthly Zoladex along with Xgeva and then patient will return to clinic in 1 month with bone scan, CT scan of abdomen pelvis and PSA and if bone scan shows no significant activity, may change his Xgeva to every 3-month along with Zoladex too. Signed By: Guicho Gross M.D. <<Signature on File>>
== END 2021-06-05 09:04 | disposition home or self-care (01) ==
PROVIDERS: PCP Internal Medicine; Visit Provider Internal Medicine Hematology & Oncology
DX: Z51.11 Encounter for antineoplastic chemotherapy (principal); C61 Malignant neoplasm of prostate; C79.51 Secondary malignant neoplasm of bone; C77.5 Secondary and unspecified malignant neoplasm of intrapelvic lymph nodes; R97.20 Elevated prostate specific antigen [PSA]; I25.2 Old myocardial infarction; I42.9 Cardiomyopathy, unspecified; Z95.0 Presence of cardiac pacemaker; K74.60 Unspecified cirrhosis of liver; N18.9 Chronic kidney disease, unspecified; R13.10 Dysphagia, unspecified; I48.20 Chronic atrial fibrillation, unspecified; Z79.01 Long term (current) use of anticoagulants; D69.6 Thrombocytopenia, unspecified; Z79.818 Long term (current) use of other agents affecting estrogen receptors and estrogen levels
CPT/HCPCS: 80053; 84153; 85025; 96372; 96402; 99215; J0897; J9202

== ENCOUNTER 2021-06-18 08:45 | Outpatient (CLI) | payer MEDICARE, SELFPAY ==
--- NOTE | 2021-06-18 | CT_ITS ---
WS: [id number] CT ABDOMEN AND PELVIS WITH CONTRAST HISTORY: PROSTATE CANCER, BONE METS TECHNIQUE: Imaging performed of the abdomen and pelvis with IV contrast. Single phase imaging of the abdomen. Coronal and sagittal reformats are submitted. All CT scans at [facility] use at [address] one of these dose optimization techniques: automated exposure control; mA and/or kV adjustment per patient size (includes targeted exams where dose is matched to clinical indication); or iterative re construction. IV CONTRAST: Visipaque 320; 95 mL IV. Oral contrast: Yes. DLP: 1089.97 mGycm COMPARISON: 11/21/2020 Lower thorax: Small layering bilateral pleural effusions. Marked enlargement of the heart with a smal l pericardial effusion. No hiatal hernia. Liver/biliary system: Small liver with nodular appearance of the surface suggesting cirrhosis and hep atic steatosis. Portal vein is normal. Gallbladder: Normal. No gallstones or wall thickening. No pericholecystic fluid. Pancreas: Atrophic pancreas. Spleen: Normal size spleen. No mass or infarct. Adrenal glands: Normal. Right kidney: Mild perinephric stranding with no obstruction. Mild atrophy. Left kidney: Mild atrophy with mild perinephric stranding. No obstruction. Aorta: Mild atherosclerosis with no aneurysm. Lymphadenopathy: Significant decrease in size and number of the pelvic lymph nodes since the prior st udy. Lymph nodes along the distal LEFT iliac chain have resolved. There is a single LEFT obturator ly mph node now present measuring 1.0 cm. Resolved RIGHT iliac lymph node. There is a single lymph node along the superior RIGHT sacrum measuring 9 mm which has significantly decreased in size from the hunter or examination. Free fluid: There is mild diffuse mesenteric edema and soft tissue anasarca. No free fluid. The free fluid described on the prior examination has resolved. GI tract: No GI tract obstruction. A loop of small bowel extends into an abdominal anterior wall julia ia. There are several diverticula in the descending and sigmoid colon without acute diverticulitis. Abdominal wall: Fat-containing umbilical hernia and the hernia contains a small amount of fluid and a loop of nondilated small bowel. Pelvis: Mild prostate gland enlargement with central calcifications. Prostate gland is significantly decreased in size since the prior examination. There is less encroachment into the urinary bladder. N ormally distended urinary bladder. Bones: Patient has known metastatic bone disease. There is extensive variable density throughout the visualized bones of the lumbar spine and pelvis. Overall the sclerotic and blastic changes are less a pparent. No obvious progression. CT/CT abdomen pelvis w con* [id number] IMPRESSION: 1. Significant decrease in size and number of the pelvic lymph nodes as descri bed above since 11/21/2020. 2. Resolved free fluid in the pelvis. 3. Continued mild diffuse anasarca and mesenteric edema. 4. Osteoblastic metastatic bone disease is again evident and may now be treate d. No progression is obvious. 5. Significant decrease in size of the prostate gland since the prior examinat ion. 6. Small bilateral layering pleural effusions have improved. 7. Cardiomegaly with a small pericardial effusion. 8. Cirrhosis.
[2021-06-18] MEDS: iodixanol 320 mg/mL 100mL Btl IV (10:35)
[2021-06-18] MEDS: iohexol 300 mg/mL 50 mL Btl PO (10:35)
== END 2021-06-18 08:46 | disposition home or self-care (01) ==
PROVIDERS: PCP Internal Medicine; Visit Provider Internal Medicine Hematology & Oncology
DX: C61 Malignant neoplasm of prostate (principal); C79.51 Secondary malignant neoplasm of bone; J90 Pleural effusion, not elsewhere classified; I51.7 Cardiomegaly; I31.3 Pericardial effusion (noninflammatory); K74.60 Unspecified cirrhosis of liver
CPT/HCPCS: 74177; Q9967

== ENCOUNTER 2021-06-21 08:51 | Outpatient (CLI) | payer MEDICARE, SELFPAY ==
--- NOTE | 2021-06-21 08:56 | NM_ITS ---
WS: [id number] NUCLEAR MEDICINE BONE SCAN Radiopharmaceutical: 24.6 Tc-99m MDP mCi IV Injection site: Right antecubital Postinjection imaging delay: 1 hr CLINICAL INFORMATION: RE-STAGING EVALUATION/PROSTATE CANCER COMPARISON: November 23, 2020 FINDINGS: Bone lesions: Previous SuperScan findings have improved compared to previous. Persistent but improved calvarial metastatic lesions. Diffuse metastatic lesions in the ribs bilaterally are less prominent today but persistent. Remainder of the spinal and pelvic lesions have improved. Residual activity in the left proximal femur. No new lesions. Soft tissue contours: Normal. Kidneys: Normal. Other findings: None. NM/NM bone scan whole body* [id number] IMPRESSION: Previously described diffuse metastatic disease has improved. Persistent residu al osseous metastatic lesions described above. No new lesions.
== END 2021-06-21 08:52 | disposition home or self-care (01) ==
LOC: NM 08:52
PROVIDERS: PCP Internal Medicine; Visit Provider Internal Medicine Hematology & Oncology
DX: C61 Malignant neoplasm of prostate (principal); C79.51 Secondary malignant neoplasm of bone
CPT/HCPCS: 78306; A9561

== ENCOUNTER 2021-07-10 09:40 | Outpatient (CLI) | payer MEDICARE, SELFPAY ==
[2021-07-10] MEDS: denosumab 120 mg SDV SUBCUT (10:35)
--- NOTE | 2021-07-10 14:52 | ONC FU_ITS ---
Dr. Gross follow up note Patient: Kameron Holt Unit #: [id number]: [id number] Dicatated By: Guicho Gross M.D.Date of Visit:Jul 10, 2021 Onc Med Follow-up/Prog Note History of Present Illness: Mr. Kameron holt, is a 76-year-old gentleman with a complex medical history including atrial fibrillation, cardiomyopathy, with 15% ejection fraction, systolic and diastolic heart failure, chronic renal disease, hypertension, history of myocardial infarction, status post cardiac pacemaker, who was admitted to hospital on November 21, 2020 with congestive heart failure and progressive weakness over the period of 1 week, as per patient he could not move on his own, it was even hard for him to get up from the chair, also complaining of progressive back pain mostly in the middle and lower part but denies any urine or stool incontinence but constipation due to pain medication, denies any focal weakness in lower extremities, denies any numbness in the lower extremities. Patient had severe lower extremity edema, which is improving with diuresis., Because of back pain he underwent CT scan of abdomen pelvis on November 21, 2020 which showed 2.1 x 2 cm left pelvic sidewall lymphadenopathy, 1.6 x 1.6 cm left external iliac lymph node, 3.1 x 2.6 cm lymph node near confluence of common iliac veins. And prostate is moderately enlarged and lobulated., Hepatic cirrhosis, tiny amount of ascites, moderate cardiomegaly, small bilateral pleural effusion, umbilical hernia containing nonobstructed loop of bowel, and CT scan of spine done on November 21, 2020 showed multiple lytic and blastic lesions involving L5 vertebral body. Multiple lytic lesion present in the trabecular bone throughout the lumbar spine., Diffuse metastatic bone disease multilevel degenerative disease disc and joint disease most pronounced in L4-L5. CT thoracic spine showed mild pathological fracture at T11, diffuse lytic and sclerotic lesions of multiple vertebral body consistent with metastatic disease, no bony foraminal and canal stenosis. Multiple vertebral bodies are involved enough to be worrisome for development of pathological fracture. His lab work-up done on November 25, 2020 showed white blood count 8.3 hemoglobin 13.8 hematocrit 43.1 platelets 151,000 CMP within normal limits including calcium 7.7 creatinine 1.1, bone scan done on November 21, 2020 shows diffuse osteoblastic metastatic bone disease, likely prostate cancer Serum protein electrophoresis done on November 21, 2020 showed no monoclonal gammopathy., Tumor marker PSA checked, came back 1420, case was discussed with hospitalist and prostate biopsy ER bone biopsy was recommended, Which was done on December 06, 2020 and it showed spiculated bone fragment with trilineage hematopoiesis which was stressed to chronic osteomyelitis. No malignancy identified, case was discussed with pathology further immunohistochemistry were ordered and pending. Patient started taking Casodex 50 mg p.o. daily, 10 days prior to Zoladex which was given on December 19, 2020 along with monthly Xgeva. Patient discontinue oral Casodex around January 16, 2021 because of feeling lightheaded dizzy, which improved when he discontinue Casodex. And patient decided not to take it but continue with 3 monthly Zoladex Follow-up bone scan done on June 21, 2021 showed previously described diffuse metastatic disease has improved persistent residual osseous metastatic lesion in the ribs bilaterally but are less prominent, no new lesion CT scan of abdomen pelvis done on June 18, 2021 showed significant decrease in size and number of pelvic lymph nodes. Resolution of fluid in pelvis. Significant decrease in size of prostate gland. Small bilateral pleural effusion have improved. Cardiomegaly with small pericardial effusion. Cirrhosis tolerating ADT with Zoladex and Xgeva well Medications: Aspirin 1 Tablet (of 81 mg) Tablet, chewable Oral daily, Bumetanide 1 Tablet (of 1 mg) Oral daily, Decadron 1 Tablet (of 4 mg) Oral daily, Entresto 0.5 Tablet (of 97-103 mg) Oral daily, HYDROcodone-Acetaminophen 1 Tablet (of 5-325 mg) Oral q 6 hours PRN, K-Tab 2 Tablet (of 20 meq) Tablet, controlled release Oral daily, metOLazone 1 Tablet (of 5 mg) Oral on M,W,F, Restoril 1 Capsule (of 15 mg) Oral daily, Simvastatin 1 Tablet (of 40 mg) Oral daily, Tamsulosin HCl 1 Capsule (of 0.4 mg) Oral daily Allergies: amLODIPine Besylate, Apixaban, Benazepril HCl, Candesartan Cilexetil, Carvedilol, hydroCHLOROthiazide, Irbesartan, Lisinopril, Losartan Potassium, Lovastatin, Metoprolol Tartrate, Nebivolol HCl, Olmesartan Medoxomil, Rivaroxaban, Rosuvastatin Calcium, Spironolactone, Valsartan, and Warfarin Sodium. Review of Systems: Review of Systems is not available for this patient. Vital Signs: Performed on Jul 10, 2021 11:28 Weight - 178.4 lbs (HIGH) BSA - 0.00 sq.m BMI - 0.00 Temperature - 98.2 F (LOW) Pulse - 100 /min Respiration - 16 /min BP - 98/64 mm(hg) O2 Sat - 98 % Pain - 0 Fatigue - 1 Performance Status: 1 - No physically strenuous activity, but ambulatory and able to carry out light or sedentary work (e.g. office work, light house work). (ECOG) Physical Examination: ENMT - No mouth sores, no thrush, no jaundice, Respiratory - Few bilateral basilar crackles otherwise clear, Cardiovascular - Regular rate and rhythm of heart, Abdomen - Soft, bowel sounds present, Extremities - 1+ edema bilaterally. Lab/Imaging: Most recent lab results are not available for this patient. Impression: Extensive metastatic disease to the bone including spine, and pelvic lymphadenopathy as per CT scan of abdomen pelvis done on November 21, 2020 which showed 2.1 x 2 cm left pelvic sidewall lymph node, 1.6 x 1.6 left external iliac lymph node, 3.1 x 2.6 cm lymph node near the confluence of common iliac veins., Prostate is moderately enlarged and lobulated, hepatic cirrhosis, moderate cardiomegaly , bone scan done on November 21, 2020 shows diffuse bone mets PSA was 1420, Repeat PSA on December 19, 2020 was 3700+, Started on Casodex 50 mg p.o. daily 10 days prior to Zoladex which was started on December 19, 2020 along with monthly Xgeva, Discussed Casodex because of related side effect like dizziness lightheadedness which resolved once he stopped taking it On January 16, 2021 History of [place], cardiomyopathy, ejection fraction 15%, Status post pacemaker Hepatic cirrhosis Chronic renal disease Off and on dysphagia Atrial fibrillation, on anticoagulation History of thrombocytopenia. Plan: Discussed with patient regarding his labs PSA 1.13 compared to 2.66 on June 05, 2021 versus 3726 on December 19, 2020 Bone scan done on June 21, [address] scan of abdomen pelvis done on June 18, 2021 shows significant improvement in metastatic disease and prostate gland size. Clinically, patient doing very well, denies any signs symptom suggestive of disease progression rather his follow-up CT scan of abdomen pelvis shows significant improvement in the pelvic lymphadenopathy and improvement in prostate gland size. Bone scan also shows significant improvement in the bone lesion and no new bone lesion. At this point, for patient's convenience, we will change his Xgeva to every 3 months along with 3 monthly Zoladex which is due in 2 months, so patient will return to clinic in 2 months with PSA and for next dose of Zoladex/Xgeva Signed By: Guicho Gross M.D. <<Signature on File>>
== END 2021-07-10 09:41 | disposition home or self-care (01) ==
LOC: ONCMED 09:41
PROVIDERS: PCP Internal Medicine; Visit Provider Internal Medicine Hematology & Oncology
DX: Z51.11 Encounter for antineoplastic chemotherapy (principal); C79.51 Secondary malignant neoplasm of bone; R97.21 Rising PSA following treatment for malignant neoplasm of prostate; I25.2 Old myocardial infarction; Z95.0 Presence of cardiac pacemaker; K74.60 Unspecified cirrhosis of liver; N28.89 Other specified disorders of kidney and ureter; I48.91 Unspecified atrial fibrillation; Z79.01 Long term (current) use of anticoagulants; D69.6 Thrombocytopenia, unspecified; M89.9 Disorder of bone, unspecified
CPT/HCPCS: 36415; 84153; 96372; 99215; J0897

== ENCOUNTER → 2021-07-31 10:44 | Outpatient (BNVA) | payer MEDICARE, SELFPAY | PROVIDERS: PCP Internal Medicine; Visit Provider Nurse Practitioner Family | DX: Z20.822 Contact with and (suspected) exposure to COVID-19 (principal) | CPT/HCPCS: 87635 ==

== ENCOUNTER 2021-09-10 12:17 | Outpatient (CLI) | payer MEDICARE, SELFPAY ==
[2021-09-10 13:34] LABS: Prostate Specific Antigen 0.471 ng/mL (0-4)
[2021-09-10] MEDS: lidocaine 1% INJ 20 mL INJECTION (14:20)
[2021-09-10] MEDS: denosumab 120 mg SDV SUBCUT (14:32)
[2021-09-10] MEDS: goserelin acetate 10.8 mg Implant SUBCUT (14:35)
--- NOTE | 2021-09-11 11:33 | ONC FU_ITS ---
Dr. Gross follow up note Patient: Kameron Holt Unit #: [id number]: [id number] Dicatated By: Guicho Gross M.D.Date of Visit:Sep 10, 2021 Onc Med Follow-up/Prog Note History of Present Illness: Mr. Kameron holt, is a 76-year-old gentleman with a complex medical history including atrial fibrillation, cardiomyopathy, with 15% ejection fraction, systolic and diastolic heart failure, chronic renal disease, hypertension, history of myocardial infarction, status post cardiac pacemaker, who was admitted to hospital on November 21, 2020 with congestive heart failure and progressive weakness over the period of 1 week, as per patient he could not move on his own, it was even hard for him to get up from the chair, also complaining of progressive back pain mostly in the middle and lower part but denies any urine or stool incontinence but constipation due to pain medication, denies any focal weakness in lower extremities, denies any numbness in the lower extremities. Patient had severe lower extremity edema, which is improving with diuresis., Because of back pain he underwent CT scan of abdomen pelvis on November 21, 2020 which showed 2.1 x 2 cm left pelvic sidewall lymphadenopathy, 1.6 x 1.6 cm left external iliac lymph node, 3.1 x 2.6 cm lymph node near confluence of common iliac veins. And prostate is moderately enlarged and lobulated., Hepatic cirrhosis, tiny amount of ascites, moderate cardiomegaly, small bilateral pleural effusion, umbilical hernia containing nonobstructed loop of bowel, and CT scan of spine done on November 21, 2020 showed multiple lytic and blastic lesions involving L5 vertebral body. Multiple lytic lesion present in the trabecular bone throughout the lumbar spine., Diffuse metastatic bone disease multilevel degenerative disease disc and joint disease most pronounced in L4-L5. CT thoracic spine showed mild pathological fracture at T11, diffuse lytic and sclerotic lesions of multiple vertebral body consistent with metastatic disease, no bony foraminal and canal stenosis. Multiple vertebral bodies are involved enough to be worrisome for development of pathological fracture. His lab work-up done on November 25, 2020 showed white blood count 8.3 hemoglobin 13.8 hematocrit 43.1 platelets 151,000 CMP within normal limits including calcium 7.7 creatinine 1.1, bone scan done on November 21, 2020 shows diffuse osteoblastic metastatic bone disease, likely prostate cancer Serum protein electrophoresis done on November 21, 2020 showed no monoclonal gammopathy., Tumor marker PSA checked, came back 1420, case was discussed with hospitalist and prostate biopsy ER bone biopsy was recommended, Which was done on December 06, 2020 and it showed spiculated bone fragment with trilineage hematopoiesis which was stressed to chronic osteomyelitis. No malignancy identified, case was discussed with pathology further immunohistochemistry were ordered and pending. Patient started taking Casodex 50 mg p.o. daily, 10 days prior to Zoladex which was given on December 19, 2020 along with monthly Xgeva. Patient discontinue oral Casodex around January 16, 2021 because of feeling lightheaded dizzy, which improved when he discontinue Casodex. And patient decided not to take it but continue with 3 monthly Zoladex Follow-up bone scan done on June 21, 2021 showed previously described diffuse metastatic disease has improved persistent residual osseous metastatic lesion in the ribs bilaterally but are less prominent, no new lesion CT scan of abdomen pelvis done on June 18, 2021 showed significant decrease in size and number of pelvic lymph nodes. Resolution of fluid in pelvis. Significant decrease in size of prostate gland. Small bilateral pleural effusion have improved. Cardiomegaly with small pericardial effusion. Cirrhosis tolerating ADT with Zoladex and Xgeva well Came for follow-up, denies any specific complaints except generalized weakness and fatigue but, no night sweats, no fever chills, no dysuria or hematuria, no new bony pains, tolerating 3 monthly Zoladex along with Xgeva well. Medications: Aspirin 1 Tablet (of 81 mg) Tablet, chewable Oral daily, Bumetanide 1 Tablet (of 1 mg) Oral daily, Decadron 1 Tablet (of 4 mg) Oral daily, Entresto 0.5 Tablet (of 97-103 mg) Oral daily, HYDROcodone-Acetaminophen 1 Tablet (of 5-325 mg) Oral q 6 hours PRN, K-Tab 2 Tablet (of 20 meq) Tablet, controlled release Oral daily, metOLazone 1 Tablet (of 5 mg) Oral on M,W,F, Restoril 1 Capsule (of 15 mg) Oral daily, Simvastatin 1 Tablet (of 40 mg) Oral daily, Tamsulosin HCl 1 Capsule (of 0.4 mg) Oral daily Allergies: amLODIPine Besylate, Apixaban, Benazepril HCl, Candesartan Cilexetil, Carvedilol, hydroCHLOROthiazide, Irbesartan, Lisinopril, Losartan Potassium, Lovastatin, Metoprolol Tartrate, Nebivolol HCl, Olmesartan Medoxomil, Rivaroxaban, Rosuvastatin Calcium, Spironolactone, Valsartan, and Warfarin Sodium. Review of Systems: Review of Systems is not available for this patient. Vital Signs: Performed on Sep 10, 2021 14:18 Weight - 178.0 lbs (LOW) BSA - 0.00 sq.m BMI - 0.00 Temperature - 98.0 F (LOW) Pulse - 91 /min Respiration - 18 /min BP - 98/63 mm(hg) O2 Sat - 97 % Pain - 0 Fatigue - 5 Performance Status: 1 - No physically strenuous activity, but ambulatory and able to carry out light or sedentary work (e.g. office work, light house work). (ECOG) Physical Examination: ENMT - No mouth sores, no thrush, no jaundice, Respiratory - Lungs are clear to auscultation, Cardiovascular - Regular rate and rhythm of heart, Abdomen - Soft, bowel sounds present, Extremities - Trace edema bilaterally. Lab/Imaging: Most recent lab results are not available for this patient. Impression: Extensive metastatic disease to the bone including spine, and pelvic lymphadenopathy as per CT scan of abdomen pelvis done on November 21, 2020 which showed 2.1 x 2 cm left pelvic sidewall lymph node, 1.6 x 1.6 left external iliac lymph node, 3.1 x 2.6 cm lymph node near the confluence of common iliac veins., Prostate is moderately enlarged and lobulated, hepatic cirrhosis, moderate cardiomegaly , bone scan done on November 21, 2020 shows diffuse bone mets PSA was 1420, Repeat PSA on December 19, 2020 was 3700+, Started on Casodex 50 mg p.o. daily 10 days prior to Zoladex which was started on December 19, 2020 along with monthly Xgeva, Discussed Casodex because of related side effect like dizziness lightheadedness which resolved once he stopped taking it On January 16, 2021 History of [place], cardiomyopathy, ejection fraction 15%, Status post pacemaker Hepatic cirrhosis Chronic renal disease Off and on dysphagia Atrial fibrillation, on anticoagulation History of thrombocytopenia. Plan: Discussed with patient regarding his labs, PSA is 0.741 compared to 1.33 on July 10, 2021 and 3728 on December 19, 2020 Clinically, patient doing well with no new signs symptoms history of disease progression his follow-up PSA level shows further improvement, now subzero compared to 3728 in December 2020. Patient is tolerating 3 monthly Zoladex well, earlier he was treated with Xgeva on monthly basis but his follow-up bone scan shows excellent response, now for patient's convenience, being switched to every 3-month. We will proceed with his next 3 monthly dose of Zoladex/Xgeva today and then he will return to clinic in 3 months with CBC CMP, PSA and follow-up CT scan of abdomen pelvis and bone scan to assess disease status/response. Signed By: Guicho Gross M.D. <<Signature on File>>
== END 2021-09-10 12:18 | disposition home or self-care (01) ==
PROVIDERS: PCP Internal Medicine; Visit Provider Internal Medicine Hematology & Oncology
DX: Z51.11 Encounter for antineoplastic chemotherapy (principal); C61 Malignant neoplasm of prostate; C79.51 Secondary malignant neoplasm of bone; Z79.899 Other long term (current) drug therapy; I48.91 Unspecified atrial fibrillation; D69.6 Thrombocytopenia, unspecified; N18.9 Chronic kidney disease, unspecified; Z95.0 Presence of cardiac pacemaker; K74.60 Unspecified cirrhosis of liver; I25.2 Old myocardial infarction; I42.9 Cardiomyopathy, unspecified
CPT/HCPCS: 36415; 84153; 96372; 96402; 99215; J0897; J9202

== ENCOUNTER → 2021-11-04 16:50 | Outpatient (BNVA) | payer MEDICARE, SELFPAY | PROVIDERS: PCP Internal Medicine; Visit Provider Internal Medicine | DX: R53.1 Weakness (principal); C61 Malignant neoplasm of prostate; I95.9 Hypotension, unspecified; I50.9 Heart failure, unspecified | CPT/HCPCS: 80053; 83550; 84443 ==

== ENCOUNTER → 2021-11-08 09:10 | Outpatient (BNVA) | payer MEDICARE, SELFPAY | PROVIDERS: PCP Internal Medicine; Visit Provider Internal Medicine | DX: I50.9 Heart failure, unspecified (principal); I95.89 Other hypotension; N18.9 Chronic kidney disease, unspecified; I48.20 Chronic atrial fibrillation, unspecified; I25.10 Atherosclerotic heart disease of native coronary artery without angina pectoris; I65.23 Occlusion and stenosis of bilateral carotid arteries; E78.5 Hyperlipidemia, unspecified; Z87.891 Personal history of nicotine dependence | CPT/HCPCS: 99214 ==

== ENCOUNTER 2022-01-15 09:30 | Oncology outpatient (recurring) (ONCR) | payer MEDICARE, SELFPAY ==
--- NOTE | 2021-12-05 10:00 | CT_ITS ---
WS: [id number] CT ABDOMEN AND PELVIS NONCONTRAST HISTORY: History of prostate cancer. TECHNIQUE: Imaging performed through the abdomen and pelvis. Coronal and sagittal reformats are submi tted. All CT scans at [facility] use at least one of these dose optimization techniques: auto mated exposure control; mA and/or kV adjustment per patient size (includes targeted exams where dose is matched to clinical indication); or iterative reconstruction. DLP: 1474.51 mGy.cm COMPARISON: 06/18/2021, 11/21/2020 Lower thorax: Marked cardiomegaly. Small pericardial effusion. Pacer wires are noted in the RIGHT hea rt. Small bilateral pleural effusions. The effusions have slightly increased in size since the prior examination. Liver: Cirrhotic appearance of the liver similar to the prior study. No bile duct dilatation or hepat ic lesions. Gallbladder: Normally distended gallbladder. There is a small amount of increased density within the gallbladder which may be a few small stones or sludge. Pancreas: Atrophied pancreas Spleen: Normal size spleen. Adrenal glands: Normal. No mass. Right kidney: Mild perinephric stranding. No obstruction. No mass identified. Left kidney: Mild perinephric stranding with no obstruction or mass identified. Aorta: Moderate atherosclerotic changes throughout the aorta. No aneurysm. Mild calcific burden the p roximal mesenteric arteries. More significant calcification throughout the splenic artery. There is a small amount of free fluid in the pelvis which was also present on the prior examination w ith slight increase. No free air. Pelvic lymph nodes have not increased in size. There is very slight decrease in the transverse diameter of the largest which measures 8 mm in the LEFT obturator region. GI tract: Stomach is nondistended. No small bowel obstruction. There is mild diffuse constipation. No obstructive pattern. Abdominal wall: Abdominal wall hernia contains a loop of small bowel which is not obstructed. Similar to the prior study. Mild soft tissue anasarca. There is also edema throughout the mesentery. Pelvis: Urinary bladder is not distended. There is mild diffuse wall thickening which is probably due to underdistention. Prostate gland is very small with central calcifications. Osseous structures: Patient has known metastatic bone disease. There is a mixture of sclerotic and ly tic changes throughout the bones. The lytic changes may be in part due to osteopenia. No obvious prog ression of bone disease which may be treated. The most significant involvement is at T11 and L5. Diff use metastatic changes throughout the pelvis. CT/CT abdomen pelvis wo con [id number] IMPRESSION: 1. Small bilateral pleural effusions but increased slightly since the prior st udy. 2. Small amount of free fluid in the pelvis which has also very slightly incre ased in amount. 3. Soft tissue anasarca. 4. No increase in size of the pelvic lymph nodes. 5. Diffuse osteoblastic metastatic bone disease is similar to prior studies. T here is extensive involvement with no obvious progression or change. 6. Cirrhosis. 7. Atherosclerotic disease throughout the aorta and mesenteric arteries. 8. Cardiomegaly and small pericardial effusion. 9. Small amount of sludge suspected within the gallbladder. 10. Ventral abdominal wall hernia contains a nondilated loop of small bowel.
--- NOTE | 2021-12-05 10:10 | NM_ITS ---
WS: [id number] NUCLEAR MEDICINE BONE SCAN Radiopharmaceutical: 24.3 Tc-99m MDP mCi IV Injection site: LEFT antecubital Postinjection imaging delay: 1 hr CLINICAL INFORMATION: Compare to last COMPARISON: [address] December 05, 2021 FINDINGS: Bone lesions: Diffuse blastic metastatic disease seen on the concurrent CT. Previously described Supe rScan findings have improved since November 23, 2020 and are stable since June 21, 2021. No evidence o f new or progressive disease. Persistent diffuse low-grade uptake involving the axial and proximal ap pendicular skeleton unchanged in appearance. Soft tissue contours: Normal. Kidneys: Normal. Other findings: None. NM/NM bone scan whole body* [id number] IMPRESSION: SuperScan findings have improved since November 23, 2020 and are unchanged since Jun. No evidence of new or progressive disease.
[2022-01-15 09:47] LABS: Basophils # 0.1 10^3/uL (0.0-0.1); Basophils % 1.5 %; Eosinophils # 0.2 10^3/uL (0.0-0.8); Eosinophils % 3.9 %; Hematocrit 40.9 % (42.0-52.0); Hemoglobin 13.2 g/dL (11.7-16.6); Lymphocytes % 20.3 %; Mean Corpuscular HGB Conc 32.3 g/dL (30.0-36.0); Mean Corpuscular Hemoglobin 28.8 pg (28.0-34.0); Mean Corpuscular Volume 89.1 fl (80-94); Mean Platelet Volume 11.5 fL (7.4-10.4); Monocytes # 0.6 10^3/uL (0.2-0.9); Monocytes % 12.4 %; Neutrophils # 2.87 10^3/uL (1.8-7.7); Neutrophils % 61.5 %; Nucleated Red Blood Cells % 0 %; Platelet Count 137 10^3/cmm (130-400); Red Blood Count 4.59 10^6/uL (4.1-5.3); Red Cell Distribution Width 16.5 % (12.1-15.1); White Blood Count 4.7 10^3/uL (4.0-10.0)
[2022-01-15 09:48] LABS: Alanine Aminotransferase 26 U/L (0-41); Albumin Level 2.7 g/dL (3.5-5.2); Alkaline Phosphatase 334 IU/L (40-130); Anion Gap 10.4 (5-19); Aspartate Amino Transferase 42 U/L (0-40); Blood Urea Nitrogen 25 mg/dL (8-23); Calcium 8.4 mg/dL (8.5-10.5); Carbon Dioxide 30 mmol/L (22-29); Chloride 99 mmol/L (98-107); Glucose 121 mg/dL (65-115); Osmolality Calculated 288 mOsm/kg (285-295); Potassium 3.4 mmol/L (3.5-5.1); Prostate Specific Antigen 0.107 ng/mL (0-4); Sodium 136 mmol/L (136-145); Total Bilirubin 0.5 mg/dL (0.15-1.2); Total Protein 5.7 g/dL (6.6-8.7)
== END 2022-01-15 23:59 | disposition home or self-care (01) ==
PROVIDERS: PCP Internal Medicine; Visit Provider Internal Medicine Hematology & Oncology
DX: C79.51 Secondary malignant neoplasm of bone (principal); C61 Malignant neoplasm of prostate
CPT/HCPCS: 74176; 78306; 80053; 84153; 85025; A9561

== ENCOUNTER 2022-01-16 07:26 | Oncology outpatient (recurring) (ONCR) | payer MEDICARE, SELFPAY ==
[2022-01-16] MEDS: denosumab 120 mg SDV SUBCUT (09:44)
[2022-01-16] MEDS: goserelin acetate 10.8 mg Implant SUBCUT (09:53)
== END 2022-01-16 23:59 | disposition home or self-care (01) ==
PROVIDERS: PCP Internal Medicine; Visit Provider Internal Medicine Hematology & Oncology
DX: Z51.11 Encounter for antineoplastic chemotherapy (principal); I50.42 Chronic combined systolic (congestive) and diastolic (congestive) heart failure; I48.0 Paroxysmal atrial fibrillation; E87.6 Hypokalemia; C61 Malignant neoplasm of prostate; C79.51 Secondary malignant neoplasm of bone
CPT/HCPCS: 96372; 96402; 99214; J0897; J9202

== ENCOUNTER 2022-02-06 11:52 | Outpatient (CLI) | payer MEDICARE, SELFPAY ==
--- NOTE | 2022-02-06 12:15 | US_ITS ---
WS: [id number] INDICATION: Ascites TECHNIQUE: Ultrasound abdomen to assess ascites FINDINGS: Four-quadrant abdominal survey. Mild ascites. No large easily accessible pocket. US/US abdomen lmt fluid [id number] IMPRESSION: Mild ascites.
== END 2022-02-06 11:53 | disposition home or self-care (01) ==
PROVIDERS: PCP Internal Medicine; Visit Provider Internal Medicine
DX: R18.8 Other ascites (principal)
CPT/HCPCS: 76705

== ENCOUNTER 2022-02-07 07:50 | Outpatient (CLI) | payer MEDICARE, SELFPAY ==
--- NOTE | 2022-02-07 08:05 | XR_ITS ---
WS: [id number] XR chest 1V 65041 REASON FOR EXAM: R06.02 - Shortness of breath FINDINGS: Cardiac device over the left chest with transvenous right subclavian leads to the right ventricular a pex. There is mild cardiomegaly. Coronary artery stents. There are bilateral pleural effusions. There are reticular interstitial lung opacities in both lower lobes with areas of more focal airspace opacities in the left lower lobe. XR/XR chest 1V 90517 IMPRESSION: Abnormal chest most compatible with congestive heart failure.
== END 2022-02-07 07:51 | disposition home or self-care (01) ==
LOC: RAD 07:51
PROVIDERS: PCP Internal Medicine; Visit Provider Internal Medicine
DX: R06.02 Shortness of breath (principal); I50.9 Heart failure, unspecified
CPT/HCPCS: 71045

== ENCOUNTER 2022-04-10 11:08 | Oncology outpatient (recurring) (ONCR) | payer MEDICARE, OTHER, SELFPAY ==
[2022-04-10 12:01] LABS: Basophils # 0.1 10^3/uL (0.0-0.1); Basophils % 1.3 %; Eosinophils # 0.2 10^3/uL (0.0-0.8); Eosinophils % 3.2 %; Hematocrit 46.2 % (42.0-52.0); Hemoglobin 14.2 g/dL (11.7-16.6); Lymphocytes # 0.9 10^3/uL (0.8-4.8); Lymphocytes % 17.5 %; Mean Corpuscular HGB Conc 30.7 g/dL (30.0-36.0); Mean Corpuscular Hemoglobin 29.3 pg (28.0-34.0); Mean Corpuscular Volume 95.5 fl (80-94); Mean Platelet Volume 10.8 fL (7.4-10.4); Monocytes # 0.6 10^3/uL (0.2-0.9); Monocytes % 11.5 %; Neutrophils # 3.55 10^3/uL (1.8-7.7); Neutrophils % 66.1 %; Nucleated Red Blood Cells % 0 %; Platelet Count 162 10^3/cmm (130-400); Red Blood Count 4.84 10^6/uL (4.1-5.3); Red Cell Distribution Width 15.9 % (12.1-15.1); White Blood Count 5.4 10^3/uL (4.0-10.0)
[2022-04-10 12:35] LABS: Alanine Aminotransferase 22 U/L (0-41); Albumin Level 2.7 g/dL (3.5-5.2); Alkaline Phosphatase 307 U/L (40-130); Anion Gap 10.2 (5-19); Aspartate Amino Transferase 40 U/L (0-40); Blood Urea Nitrogen 22 mg/dL (8-23); Calcium 8.6 mg/dL (8.5-10.5); Carbon Dioxide 33 mmol/L (22-29); Chloride 99 mmol/L (98-107); Globulin 3.4 g/dL (1.3-4.6); Glucose 113 mg/dL (65-115); Osmolality Calculated 290 mOsm/kg (285-295); Potassium 4.2 mmol/L (3.5-5.1); Prostate Specific Antigen 0.082 ng/mL (0-4); Sodium 138 mmol/L (136-145); Total Bilirubin 0.6 mg/dL (0.15-1.2); Total Protein 6.1 g/dL (6.6-8.7)
[2022-04-10] MEDS: denosumab 120 mg SDV SUBCUT (13:42)
[2022-04-10] MEDS: leuprolide 22.5 mg Kit IM (13:43)
== END 2022-04-18 23:59 | disposition home or self-care (01) ==
PROVIDERS: PCP Internal Medicine; Visit Provider Internal Medicine Hematology & Oncology
DX: C79.51 Secondary malignant neoplasm of bone; C61 Malignant neoplasm of prostate; R59.0 Localized enlarged lymph nodes; K74.60 Unspecified cirrhosis of liver; I51.7 Cardiomegaly; I31.3 Pericardial effusion (noninflammatory); K43.9 Ventral hernia without obstruction or gangrene; J90 Pleural effusion, not elsewhere classified; Z79.818 Long term (current) use of other agents affecting estrogen receptors and estrogen levels; Z79.899 Other long term (current) drug therapy; Z87.891 Personal history of nicotine dependence
CPT/HCPCS: 80053; 84153; 85025; 96372; 96402; 99214; J0897; J9217

== ENCOUNTER → 2022-04-11 10:27 | Outpatient (BNVA) | payer MEDICARE, OTHER, SELFPAY | PROVIDERS: PCP Internal Medicine; Visit Provider Internal Medicine | DX: Z45.010 Encounter for checking and testing of cardiac pacemaker pulse generator [battery] (principal) | CPT/HCPCS: 93281 ==

== ENCOUNTER 2022-05-14 08:41 | Emergency (ER) | payer MEDICARE, OTHER, SELFPAY ==
[2022-05-14] VITALS (7 sets, daily range): BP systolic 99–108; BP diastolic 59–67; PULSE 63–91; RESP 15–20; TEMP 36.5; O2SAT 94–97; BMI 25.0
--- NOTE | 2022-05-14 09:25 | W.ED.WEAKNES ---
HPI - Weakness General: Chief complaint: Weakness Stated complaint: Dr. Meneses sent for weakness in legs Time Seen by Provider: 05/14/22 08:45 Source: patient Mode of arrival: ambulatory History of Present Illness: 77-year-old male presents emergency room complaining of bilateral lower extremity weakness and significant swelling in his legs. He has a history of prostate cancer. He is on multiple sedating medications including hydrocodone lorazepam and temazepam and Compazine. He has a history of prostate cancer with some metastasis although he tells me its become well controlled at this point. Sided difficulty speech or swallowing he seems somewhat bloated across his abdomen but states that is typical for him. MD Complaint: generalized weakness Onset (ago): day(s) Duration: constant Location: generalized Relieving factors: none Exacerbating factors: none Associated symptoms: Reports chest pain; Denies chills, confusion, melena, decreased appetite, diaphoresis, dysuria, easy bruising, fever(s), headache(s), myalgias, nausea, rash, short of breath, syncope or vomiting Review of Systems Const: Denies: fever(s), chills or diaphoresis Card: Reports: chest pain; Denies: syncope GI: Denies: nausea, vomiting or melena : Denies: dysuria Neuro: Denies: headache(s) or confusion Eric/Lymph: Denies: easy bruising PFS ED PFSH: Medical History Abdominal bloating Anxiety Arteriosclerosis of coronary artery Ascites Atrial fibrillation with RVR Cardiomyopathy Carotid stenosis, bilateral Chronic combined systolic and diastolic heart failure Chronic diarrhea Chronic eustachian tube dysfunction Chronic insomnia Chronic neck pain CKD (chronic kidney disease) Dyslipidemia Dysphagia Gastritis GERD (gastroesophageal reflux disease) H/O: HTN (hypertension) Heel spur Myocardial infarction of anterior wall Presence of cardiac pacemaker Thrombocytopenia Surgical History H/O colonoscopy with polypectomy History of placement of ear tubes S/P angioplasty with stent S/P AV (atrioventricular) dolores ablation S/P hernia repair S/P laparoscopic hernia repair OF A VENTRAL HERNIA WITH ATRIUM MESH 03/26/2016 S/P vasectomy Family History Mother CAD (coronary artery disease) Stroke Father CAD (coronary artery disease) Brother Cancer Brother Cancer Other Heart disease Hypertension Denies family history of Diabetes Clotting disorder Dementia Chronic kidney disease (CKD) Suicide Anesthesia complication Bleeding disorder Lung disease Social History Smoking and tobacco status: former smoker (smoked x 25 years) Alcohol intake: never Lives independently: Yes Household members: spouse Housing: House Marital status: Current occupational status: retired History of recent travel: No Physical Exam Const: GENERAL APPEARANCE: cooperative and comfortable ORIENTATION/CONSCIOUSNESS: Yes awake, Yes oriented to person, Yes oriented to place and Yes oriented to time HENMT: COMMON NORMALS: normocephalic, atraumatic and hearing grossly normal bilaterally HEAD & SCALP: normocephalic and atraumatic Resp: COMMON NORMALS: normal respiratory effort, No retractions, No use of accessory muscles and clear to auscultation bilaterally AUSCULTATION: clear to auscultation bilaterally Cardio: COMMON NORMALS: regular rate, regular rhythm and No murmurs present (Cardio) RATE: regular rate RHYTHM: regular rhythm GI: COMMON NORMALS: Soft to palpation and No hepatosplenomegaly present AUSCULTATION: Yes normoactive bowel sounds PALPATION: Yes Soft to palpation, No Tenderness to palpation present (GI), No Guarding due to palpation present (GI) and Yes No hepatosplenomegaly present Extremity: COMMON NORMALS: normal to inspection, capillary refill normal and no calf tenderness GENERAL: Yes edema Neuro: SENSORIUM/ORIENTATION: Yes oriented to person, Yes oriented to place and Yes oriented to time Skin: COMMON NORMALS: no rashes or lesions noted GENERAL SKIN EXAM: no rashes or lesions noted Course Vital Signs: Vital signs: Vital Signs Temperature 97.7 F 05/14/22 08:49 Pulse Rate 91 05/14/22 13:28 Respiratory Rate 20 H 05/14/22 12:30 Blood Pressure 99/59 05/14/22 13:28 Pulse Oximetry 97 05/14/22 13:28 Oxygen Delivery Me thod 05/14/22 10:00 MDM - Weakness Medical Decision Making symptoms improved with gentle fluid hydration. Discussed with patient and family. Pt would like to go home. Labs and imaging reviewed. Medical Records I reviewed the patient's medical records. Lab Data I reviewed the patient's lab results. : 05/14/22 09:12 05/14/22 09:12 Laboratory Results WBC 3.8 10^3/uL (4.0-10.0) L 05/14/22 09:12 RBC 4.94 10^6/uL (4.1-5.3) 05/14/22 09:12 Hgb 14.8 g/dL (11.7-16.6) 05/14/22 09:12 Hct 46.7 % (42.0-52.0) 05/14/22 09:12 MCV 94.5 fl (80-94) H 05/14/22 09:12 MCH 30.0 pg (28.0-34.0) 05/14/22 09:12 MCHC 31.7 g/dL (30.0-36.0) 05/14/22 09:12 RDW 16.2 % (12.1-15.1) H 05/14/22 09:12 Plt Count 150 10^3/cmm (130-400) 05/14/22 09:12 MPV 10.9 fL (7.4-10.4) H 05/14/22 09:12 Neut % (Auto) 58.8 % 05/14/22 09:12 Lymph % (Auto) 22.5 % 05/14/22 09:12 [place] % (Auto) 13.5 % 05/14/22 09:12 Eos % (Auto) 3.4 % 05/14/22 09:12 Baso % (Auto) 1.3 % 05/14/22 09:12 Neut # (Auto) 2.22 10^3/uL (1.8-7.7) 05/14/22 09:12 Lymph # (Auto) 0.9 10^3/uL (0.8-4.8) 05/14/22 09:12 [place] # (Auto) 0.5 10^3/uL (0.2-0.9) 05/14/22 09:12 Eos # (Auto) 0.1 10^3/uL (0.0-0.8) 05/14/22 09:12 Baso # (Auto) 0.1 10^3/uL (0.0-0.1) 05/14/22 09:12 Nucleated RBC % (auto) 0 % 05/14/22 09:12 Nucleated RBCs # 0.0 /100WBC 05/14/22 09:12 Sodium 136 mmol/L (136-145) 05/14/22 09:12 Potassium 3.7 mmol/L (3.5-5.1) 05/14/22 09:12 Chloride 100 mmol/L (98-107) 05/14/22 09:12 Carbon Dioxide 29 mmol/L (22-29) 05/14/22 09:12 Anion Gap 10.7 (5-19) 05/14/22 09:12 BUN 20 mg/dL (8-23) 05/14/22 09:12 Creatinine 1.3 mg/dL (0.7-1.2) H 05/14/22 09:12 GFR Calculation Not Reportable 05/14/22 09:12 Glucose 107 mg/dL (65-115) 05/14/22 09:12 Calculated Osmolality 285 mOsm/kg (285-295) 05/14/22 09:12 Calcium 8.4 mg/dL (8.5-10.5) L 05/14/22 09:12 Total Bilirubin 0.8 mg/dL (0.15-1.2) 05/14/22 09:12 AST 29 U/L (0-40) 05/14/22 09:12 ALT 12 U/L (0-41) 05/14/22 09:12 Alkaline Phosphatase 224 U/L (40-130) H 05/14/22 09:12 Total Protein 5.8 g/dL (6.6-8.7) L 05/14/22 09:12 Albumin 2.6 g/dL (3.5-5.2) L 05/14/22 09:12 Globulin 3.2 g/dL (1.3-4.6) 05/14/22 09:12 Random Cortisol 22.30 ug/dL (2.47-19.5) H 05/14/22 09:12 Urine Color Yellow (Yellow) 05/14/22 09:51 Urine Appearance Clear (CLEAR) 05/14/22 09:51 Urine pH 5 (5-7) 05/14/22 09:51 Ur Specific [place] 1.020 (1.005-1.030) 05/14/22 09:51 Urine Protein 1+ (Negative) H 05/14/22 09:51 Urine Glucose (UA) Norm (Normal) 05/14/22 09:51 Urine Ketones 1+ (Negative) H 05/14/22 09:51 Urine Blood Neg (Negative) 05/14/22 09:51 Urine Nitrate Negative (Negative) 05/14/22 09:51 Urine Bilirubin 1+ (Negative) H 05/14/22 09:51 Urine Urobilinogen 4 mg/dL (Negative) H 05/14/22 09:51 Ur Leukocyte Esterase Negative (Negative) 05/14/22 09:51 Urine RBC 0-4 /hpf (0-2) H 05/14/22 09:51 Urine WBC None /hpf (0-5) 05/14/22 09:51 Ur Squamous Epith Cells 0-4 /hpf (0-5) H 05/14/22 09:51 Amorphous Sediment Not Reportable 05/14/22 09:51 Urine Bacteria 1+ /hpf (NONE) H 05/14/22 09:51 Discharge Plan Discharge Patient Disposition: Home Clinical Impression: Hypotension, Chronic congestive heart failure Condition: Stable Prescriptions: No Action hydrocodone-acetaminophen 5-325 mg tablet 1 tab PO Q6H PRN (Reason: Pain) 30 Days Qty: 60 0RF docusate sodium [Colace] 100 mg capsule 100 mg PO BEDTIME potassium chloride 20 mEq tablet extended release 20 meq PO DAILY tamsulosin 0.4 mg capsule 0.4 mg PO BEDTIME@2200 Qty: 30 3RF furosemide 20 mg tablet 20 mg PO DAILY Qty: 60 3RF lorazepam 1 mg tablet 0.5 - 1 mg PO Q6H PRN (Reason: Severe Nausea) Qty: 30 3RF Aspir-81 81 mg Tablet,Delayed Release (Dr/Ec) 81 mg PO DAILY temazepam 15 mg capsule 15 mg PO QPM nystatin 100,000 unit/mL suspension 5 ml mucous membrane BID Discharge Orders: Discharge ED (Routine); Ordered 05/14/22 Ordered By: Troy Busch Referrals: Landon Meneses MD [Primary Care Provider] - Discharge Diet: Usual diet Discharge Activity: Increase activity as tolerated Patient Instructions: Opioid Safety, Pain Management Activity Restrictions/Additional Instructions: Increase your Lasix to 40 mg daily for the next 4 days. follow-up for a recheck on your kidney function with your primary care doctor within the next 3 to 4 days. Coding Level of Care Code ED Medical Social Consultant for Amy Baig
[2022-05-14 09:29] LABS: Basophils # 0.1 10^3/uL (0.0-0.1); Basophils % 1.3 %; Eosinophils # 0.1 10^3/uL (0.0-0.8); Eosinophils % 3.4 %; Hematocrit 46.7 % (42.0-52.0); Hemoglobin 14.8 g/dL (11.7-16.6); Lymphocytes # 0.9 10^3/uL (0.8-4.8); Lymphocytes % 22.5 %; Mean Corpuscular HGB Conc 31.7 g/dL (30.0-36.0); Mean Corpuscular Volume 94.5 fl (80-94); Mean Platelet Volume 10.9 fL (7.4-10.4); Monocytes # 0.5 10^3/uL (0.2-0.9); Monocytes % 13.5 %; Neutrophils # 2.22 10^3/uL (1.8-7.7); Neutrophils % 58.8 %; Nucleated Red Blood Cells % 0 %; Platelet Count 150 10^3/cmm (130-400); Red Blood Count 4.94 10^6/uL (4.1-5.3); Red Cell Distribution Width 16.2 % (12.1-15.1); White Blood Count 3.8 10^3/uL (4.0-10.0)
[2022-05-14 10:12] LABS: Bilirubin Urine 1+ (Negative); Blood Urine Neg (Negative); Glucose Urine UA Norm (Normal); Ketones Urine 1+ (Negative); Nitrate Urine Negative (Negative); Protein Urine 1+ (Negative); Urine Appearance Clear (CLEAR); Urine Color Yellow (Yellow); Urobilinogen Urine 4 mg/dL (Negative); pH Urine 5 (5-7)
[2022-05-14 10:13] LABS: Add Urine Microscopic? YES; Leukocyte Esterase Urine Negative (Negative)
[2022-05-14 10:13] LABS: Alanine Aminotransferase 12 U/L (0-41); Albumin Level 2.6 g/dL (3.5-5.2); Alkaline Phosphatase 224 U/L (40-130); Aspartate Amino Transferase 29 U/L (0-40); Blood Urea Nitrogen 20 mg/dL (8-23); Calcium 8.4 mg/dL (8.5-10.5); Carbon Dioxide 29 mmol/L (22-29); Chloride 100 mmol/L (98-107); Globulin 3.2 g/dL (1.3-4.6); Glucose 107 mg/dL (65-115); Osmolality Calculated 285 mOsm/kg (285-295); Sodium 136 mmol/L (136-145); Total Bilirubin 0.8 mg/dL (0.15-1.2); Total Protein 5.8 g/dL (6.6-8.7)
[2022-05-14 10:15] LABS: Anion Gap 10.7 (5-19)
[2022-05-14 10:16] LABS: Add Urine Culture? No; Bacteria Urine 1+ /hpf; RBC Urine 0-4 /hpf (0-2); Squamous Epithelial Cell Urine 0-4 /hpf (0-5)
[2022-05-14 10:16] LABS: Potassium 3.7 mmol/L (3.5-5.1)
[2022-05-14] MEDS: sodium chloride 0.9% 500 ML 999 ML IV (11:35)
== END 2022-05-14 13:30 | disposition home or self-care (01) ==
PROVIDERS: Emergency Provider Family Medicine; PCP Family Medicine
DX: I95.9 Hypotension, unspecified (principal); I13.0 Hypertensive heart and chronic kidney disease with heart failure and stage 1 through stage 4 chronic kidney disease, or unspecified chronic kidney disease; N18.9 Chronic kidney disease, unspecified; I50.42 Chronic combined systolic (congestive) and diastolic (congestive) heart failure; E78.5 Hyperlipidemia, unspecified; I25.2 Old myocardial infarction; Z95.0 Presence of cardiac pacemaker; Z87.891 Personal history of nicotine dependence
CPT/HCPCS: 80053; 81001; 82533; 85025; 96360; 99284; J7040